=== PATIENT | male | born 1940 | race Caucasian/White ===

== ENCOUNTER → 2018-03-30 17:26 | Outpatient (CLI) | payer MEDICARE, SELFPAY ==
--- NOTE | 2018-03-30 17:35 | CT_ITS ---
STUDY: CT ABDOMEN AND PELVIS WITH CONTRAST REASON FOR EXAM: Male, 77 years old. Hematuria RADIATION DOSAGE (If Supplied By Facility): CTDIvol = ( 18.16 ) mGy, DLP = ( 2191.53 ) mGycm TECHNIQUE: Transaxial images were obtained from the dome of the diaphragm to the symphysis pubis without oral contrast. 100 ml of Isovue 300 contrast was administered. Sagittal and coronal images were reconstructed. Individualized dose optimization techniques were used for this CT. COMPARISON: None. FINDINGS: The visualized lung bases are unremarkable. The visualized portions of the heart are within normal limits. Pneumobilia likely related to cholecystectomy. Normal spleen. Normal pancreas. Normal bilateral adrenal glands. Normal right kidney. Normal left kidney. Normal visualized stomach. 21 mm duodenal diverticulum. There are multiple colonic diverticula consistent with diverticulosis. The appendix is visualized and appears normal. There is diffuse atherosclerotic calcification of the abdominal aorta, without a demonstrated aneurysm. Normal inferior vena cava. Normal retroperitoneum. Bilateral bladder diverticula are present, measuring 3.5 cm on the right and 1.3 cm on the left. The diverticulum on the right contains posterior soft tissue attenuation which extends into the bladder lumen itself. There is also a soft tissue nodule along the right posterior bladder wall on image 89 of series 5 that measures 12 mm. Bladder neoplasm is the diagnosis of exclusion given history of gross hematuria. If not already obtained, cystoscopic correlation is recommended. There is enlargement of the prostate gland. Normal abdominal wall. There are diffuse degenerative changes of the visualized lumbar spine. CT/CT Abd/Pelvis W/WO Contrast IMPRESSION: Abnormal soft tissue attenuation along the posterior margin of a right-sided bladder diverticulum extending into the bladder lumen. Additional 12 mm soft tissue nodule along the right posterior bladder wall. The diagnosis of exclusion is bladder neoplasm and cystoscopic correlation is recommended. Electronically Signed: Michelet Bhandari MD at 22:37 EDT Tel , Service support ,
[2018-03-30 17:46] LABS: CREATININE FINGERSTICK 0.9 mg/dL (0.70-1.30)
== END ==
PROVIDERS: Family Provider Family Medicine; PCP Family Medicine; Visit Provider Nurse Practitioner Adult Health
DX: R31.0 Gross hematuria (principal)
CPT/HCPCS: 74178; Q9967

== ENCOUNTER 2018-06-11 15:47 | Emergency (ER) | payer MEDICARE, SELFPAY ==
[2018-06-11 15:49] VITALS: BP 151/62; PULSE 63; RESP 16; TEMP 36.7; O2SAT 98; BMI 23.7
--- NOTE | 2018-06-11 16:41 | ED.DCSUM_ITS ---
- ER Visit Summary Date of Service: 06/11/18 Chief Complaint: Gross blood in Morris bag History of Present Illness: The patient is a 77 M status post bladder tumor resection yesterday by cystoscopy by Dr. Smith. States he was doing well and today is voiding seen to be draining and and on the way here he was started passing blood-tinged urine. He denies seeing any clots. He denies being on any blood thinners. Physical Examination: Vital signs are stable and afebrile. His initial blood pressure is 151/62. He is in no distress. H EENT exam unremarkable. Neck bilaterally. Heart regular rhythm no murmur. Abdomen soft nontender. External exam eyes penis. With gross tinged urine. Right I do not see any obvious clots. There is blood-tinged urine in Morris bag. He is moving all 4 extremities. Calves nontender without edema or cords. He is awake alert. Test Results: CBC shows white count 9. Hemoglobin 12.5. Unremarkable. No significant anemia or severe loss from prior studies. UA shows blood but no signs of traction. Emergency Department Course and Treatment: RN irrigated the Morris catheter urine cleared up significantly. The catheter is working appropriately. At this time I do not think it needs to be changed. I did discuss that with the patient if he develops urinary retention and clots it will need to be irrigated out again and possibly change to a larger size. Treatment Plan: Discharge home. Plenty of water. Return if worse. Disposition: Discharge Impression: Acute gross hematuria Status post cystoscopy with bladder tumor removal This note was generated with Merkle dictation software. It may contain incorrect words, spelling, and punctuation that were not noted in review of the chart prior to signing ED Disposition - Plan for ED Patient: Chief Complaint: Hypertension Referrals: Franco Shin [Primary Care Provider] -
[2018-06-11 16:49] LABS: Hematocrit 34.7 % (40-54); Hemoglobin 12.5 g/dl (13.0-16.5); Mean Corpuscular Hgb 32.6 pg (27.0-32.0); Mean Corpuscular Volume 90.6 fL (80-94); Mean Platelet Vol. 9.6 fl (6.2-12.0); Platelet Count 169 K/mm3 (150-450); RBC Distribution Width CV 13.3 % (11.6-14.6); RBC Distribution Width SD 43.3 fl (35.1-43.9); Red Blood Count 3.83 M/mm3 (4.6-6.2); White Blood Count 9.2 K/mm3 (4.4-11.0)
[2018-06-11 16:50] LABS: Scan Indicated on CBC? Y/N NO
[2018-06-11 17:03] LABS: Mucous, Urine 0 SEEN /hpf (<or=2+); Squamous Epithelial Cells - UA 0 SEEN /hpf (0-5)
[2018-06-11 17:33] LABS: Color, Urine Yellow (Yellow); Glucose, Dipstick Normal (Normal); Ketone-Dipstick 5 mg/dl (Negative); Leukocyte Esterase-Dipstick 25 /ul (Negative); Nitrite-Dipstick Negative (Negative); Occult Blood-Urine 250 /ul (Negative); Protein-Dipstick 500 mg/dl (Negative); Urine Bilirubin Dipstick Negative (Negative); Urine Clarity Cloudy (Clear); Urine Urobilinogen Normal (Normal)
[2018-06-11 18:02] VITALS: BP 144/69; PULSE 68; RESP 18; O2SAT 97
[2018-06-11 18:09] LABS: Bacteria 1+ /hpf (None Seen); Red Blood Cells-Urine > 100 SEEN /hpf (0-5); White Blood Cells 0-5 SEEN /hpf (0-5)
--- NOTE | 2018-06-11 18:35 | ED.DEP ---
ED Disposition - Plan for ED Patient: Disposition: Home or Assisted Living Chief Complaint: Hypertension Instructions: ED Hematuria Referrals: Franco Shin [Primary Care Provider] - As Needed Juan Pablo Smith MD [STAFF PHYSICIAN] - As soon as possible Additional Instructions: Plenty of water to try to prevent the Morris from being clotted off. Return if catheter is not working. This would need to be re-irrigated. Possibly even changed to a larger size.
[2018-06-11 18:55] VITALS: BP 148/72; PULSE 61; RESP 18; O2SAT 95
== END 2018-06-11 18:56 | disposition home or self-care (01) ==
PROVIDERS: Emergency Provider Emergency Medicine; Family Provider Family Medicine; PCP Family Medicine
DX: R31.0 Gross hematuria (principal); Z98.890 Other specified postprocedural states; I10 Essential (primary) hypertension; E11.9 Type 2 diabetes mellitus without complications; C67.9 Malignant neoplasm of bladder, unspecified; Z79.82 Long term (current) use of aspirin; Z79.84 Long term (current) use of oral hypoglycemic drugs; Z79.899 Other long term (current) drug therapy
CPT/HCPCS: 81001; 85027; 99285; A4216

== ENCOUNTER → 2018-11-03 09:45 | Outpatient (CLI) | payer MEDICARE, SELFPAY ==
--- NOTE | 2018-11-03 09:51 | RDU_ITS ---
Reason For Study: Stenosis Right Renal Artery Left Renal Artery Right renal artery ostium 153/27 Left renal artery ostium 101/24 RSV/EDV. PSV/EDV. Right renal artery proximal 95/23 Left renal artery proximal PSV/EDV PSV/EDV. 96/21 . Right renal artery mid 161/53 Left renal artery mid 83/17 PSV/EDV. PSV/EDV . Right renal artery distal 191/57 Left renal artery distal 178/44 PSV/EDV. PSV/EDV. Right RAR 2.45. Left RAR 2.28. Right Renal Parenchyma Left Renal Parenchyma Upper Pole Medula 45/11 PSV/EDV. Left upper pole medulla 43/9 Right upper pole medulla EDR 0.24 . PSV/EDV . Right upper pole medulla R.I. Left upper pole medulla EDR 0.21 . 0.75 . Left upper pole medulla R.I. 0.80 . Upper Harry Cortx 37/11 PSV/EDV. UP Cortex 20/6 PSV/EDV. Right upper pole cortex EDR 0.30 . Left upper pole cortex EDR 0.30 . Right upper pole cortex R.I. 0.71 . Left upper pole cortex R.I. 0.70 . Right lower Pole medulla 27/9 Left lower Pole medulla 30/7 PSV/EDV . PSV/EDV . Right lower pole medulla EDR 0.33 . Left lower pole medulla EDR 0.23 . Right lower pole medulla R.I. Left lower pole medulla R.I. 0.76 . 0.68 . Lower Pole Cortx 19/4 PSV/EDV. Lower Pole Cortex 25/6 PSV/EDV. Left lower pole cortex EDR 0.21 . Right lower pole cortex EDR 0.24 . Left lower pole cortex R.I. 0.79 . Right lower pole cortex R.I. 0.78 . Left Renal Hilar Right Renal Hilar LT Hilar avg 183/45 PSV/EDV . Right Hilar avg 209/49 PSV/EDV. Left hilar acceleration time 59 Right hilar acceleration time 44 m/sec. m/sec. Left Renal Dimensions Right Renal Dimensions Left kidney size 11.2 cm . Right kidney size 11.6 cm . Left cortical dimension 1.01 cm . Right cortical dimension 0.91 cm . Aorta Proximal abdominal aorta 2.40cm x 2.49 cm . Proximal abdominal aorta peak systolic velocity is 78 cm/sec . Distal abdominal aorta 1.77cm x 1.77 cm . Distal abdominal aorta peak systolic velocity is 84 cm/sec . Interpretation Summary Dimensions of the intra-abdominal aorta appear normal, without evidence of aneurysmal dilatation. Renal artery velocities are normal bilaterally, but for the distal right renal artery velolcity, which is mildly elevated. Acceleration times are normal bilaterally. Renal-aortic ratios are also bilaterally normal. There is no evidence of hemodynamically significant renal artery stenosis on either side. Renovascular resistance appears to be bilaterally elevated . The right cortical dimension is decreased. The left cortical dimension is normal. Kidneys appear normal in size bilaterally. Ordering Physician: Franco Shin Referring Physician: Franco Shin Performed By: Amara Hernandez, MARLEN, RVT
--- NOTE | 2018-11-03 09:52 | ADUL_ITS ---
Reason For Study: Stenosis Right Velocities Ext. Iliac Artery, dist = 122 cm./sec. Common Femoral Artery, mid = 139 cm./sec. Supf Femoral Artery, prox = 215 cm./sec. Supf Femoral Artery, mid = 131 cm./sec. Supf Femoral Artery, dist. = 73.7 cm./sec. Profunda Femoral Artery = 58.9 cm./sec. Popliteal Artery, prox. = 59.2 cm./sec. Popliteal Artery, mid = 55.1 cm./sec. Popliteal Artery, dist = 66.8 cm./sec. Post. Tibial Artery, prox = 102 cm./sec. Post. Tibial Artery, mid = 90.4 cm./sec. Post. Tibial Artery, dist = 73.9 cm./sec. Peroneal Artery, prox = 46 cm./sec. Peroneal Artery, mid = 67.6 cm./sec. Peroneal Artery,dist = 42 cm./sec. Ant. Tibial Artery, prox = 55.4 cm./sec. Ant. Tibial Artery, mid = 69.1 cm./sec. Ant. Tibial Artery, dist = 68 cm./sec. Dorsalis Pedis Artery, = 64 cm/sec. Procedure Exam performed in department. Interpretation Summary Pulsatile arterial flow is noted throughout the right lower extremity arterial tree. Triphasic waveforms are noted at all levels, consistent with relatively normal arterial flow. There is a mild increase in arterial velocity and evidence of mild flow turbulence in the proximal right superficial femoral artery, suggesting mild stenosis, which does not appear to be hemodynamically significant. Ordering Physician: Franco Shin Referring Physician: Franco Shin Performed By: Amara Hernandez RVT, RDCS and Student
== END ==
PROVIDERS: Family Provider Family Medicine; PCP Family Medicine; Referring Provider Family Medicine; Visit Provider Family Medicine
DX: I70.1 Atherosclerosis of renal artery (principal); I73.9 Peripheral vascular disease, unspecified; I70.201 Unspecified atherosclerosis of native arteries of extremities, right leg
CPT/HCPCS: 93926; 93975

== ENCOUNTER 2019-09-30 16:28 | Inpatient (IN) | payer MEDICARE, SELFPAY ==
[2019-09-30 16:36] VITALS: BP 152/65; PULSE 87; RESP 20; TEMP 36.6; O2SAT 96; BMI 23.1
--- NOTE | 2019-09-30 16:37 | NURSING ---
PT ARRIVED BY WHEEL CHAIR, TRANSPORTED PT HERE FROM [facility] AT [id number].
[2019-09-30 17:01] LABS: Bedside Glucose 151 mg/dL (70-110)
[2019-09-30 17:13] VITALS: BP 152/65; PULSE 87; RESP 20; TEMP 36.6; O2SAT 96
--- NOTE | 2019-09-30 17:44 | NURSING ---
After patient was admitted to the unit, the admission nurse noted that the dressing around the patient's JOHNNY drain was saturated. On further investigation drainage was seeping out around the tube insertion site. Furthermore, the site was red with some edema present. This nurse contacted CAROL Smith at [facility] and was told that the Urologist was already aware of this and that no changes had been made, other than nursing completing frequent dressing changes to the site.
--- NOTE | 2019-09-30 18:00 | HP.PCM_ITS ---
Problem List (1) Debility Status: Acute (2) Bladder cancer Status: Chronic (3) Bile duct injury Status: Chronic (4) Diabetes mellitus Status: Chronic (5) Hypertension Status: Chronic (6) Gross hematuria Status: Chronic (7) GERD (gastroesophageal reflux disease) Status: Chronic (8) Chronic kidney disease Status: Chronic (9) Postoperative anemia Status: Acute History of Present Illness Date of Admission: 09/30/19 Chief Complaint: Here for rehabilitation, strengthening, prior to discharge home with . The patient is a 79 year old Male with below past medical history know history of bladder cancer for 1.5 years. Transurethral resection of bladder tumor (TURBT) x 3, with BCG, Mitomycin treatments. Frequency, urgency, nocturia every 1 to 1.5 hours. Occasional back pain. Either TURBT every 3 - 4 months, or bladder removal with ileo conduit. 09/26/2019 Admit to [facility]. 09/29/2019 Ileo conduit, robotic laparoscopic cystectomy, prostatectomy, colostomy. JOHNNY drains in left lower quadrant. 09/30/2019 Admit to TCU with debility, here for rehabilitation, strengthening, prior to discharge home with . Past Medical History Past Medical History (Chronic Problems): Chronic Problems Bladder cancer (Chronic) Bile duct injury (Chronic) Diabetes mellitus (Chronic) Hypertension (Chronic) Gross hematuria (Chronic) GERD (gastroesophageal reflux disease) (Chronic) Chronic kidney disease (Chronic) Allergies No Known Allergies Allergy (Verified 06/11/18 18:45) Home Medications: Ambulatory Orders Medication Instructions Recorded Aspirin [Aspirin, Baby] 81 mg PO DAILY@0800 06/11/18 Metoprolol Succinate [Toprol Xl] 25 mg PO DAILY 06/11/18 Omeprazole 40 mg PO DAILY 06/11/18 Tamsulosin HCl [Flomax] 0.4 mg PO DAILY 06/11/18 metFORMIN HCl [Glucophage] 500 mg PO BIDCM 06/11/18 Acetaminophen [Tylenol Arthritis] 650 mg PO Q8H PRN PRN 09/30/19 Amlodipine [Norvasc] 10 mg PO DAILY 09/30/19 Cyanocobalamin (Vitamin B-12) 1,000 mcg PO DAILY 09/30/19 [Vitamin B-12] Heparin Injection 5,000 units SUBCUT Q8 09/30/19 Oxybutynin Chloride [Oxybutynin 15 mg PO DINNER 09/30/19 Chloride ER] Oxycodone HCl/Acetaminophen 1 ea PO Q4H PRN PRN 09/30/19 [Oxycodone-Acetaminophen 5-325] Rosuvastatin Calcium 5 mg PO DAILY 09/30/19 Sulfasalazine [Azulfidine] 500 mg PO BID 09/30/19 Vitamin B12 1,000 mcg PO DAILY 09/30/19 Surgical History: cataract, cholecystectomy - bile duct injury., - - TURBT x 3, Exploratory laparotomy, hepatojejunostomy with wound vac, liver resection, DCS: A-10C [place] Psychiatric History: No pertinent psych hx Lives: Spouse/ Significant Other Smoking Status: Former smoker Tobacco Use: Cigarettes Alcohol: None Drugs: None - *Family History Maternal History Items: Diabetes, Dementia Sibling History Items: COPD - Brother. Review of Systems Constitutional: Denies: Chills, Fever, Weight Change HEENT: Denies: Head Aches, Sinus Congestion, Sinus Drainage Cardiovascular: Denies: Chest Pain, Palpitations Respiratory: Denies: Cough, Shortness of breath at rest, Sputum production Gastrointestinal: Reports: Nausea. Denies: Abdominal Pain, Vomiting Genitourinary: Denies: Dysuria Musculoskeletal: Denies: Joint Pain, Joint Tenderness Skin: Denies: Rash, Wounds Neurological: Denies: Numbness, Tingling, Focal weakness Psychiatric: Denies: Anxiety, Depression, Homicidal Ideations, Suicidal Ideations Hematologic/ Lymphatic: Denies: Easy Bruising, Easy Bleeding VTE Information - Inpt Only VTE Present on Admission: No VTE Mechan Device Prophylaxis: Knee High JAYLEN Hose VTE Pharm Prophylaxis ordered?: Yes Patient Problems: Active and Suspected Problems Debility (Acute) Postoperative anemia (Acute) - Physical Exam Vitals/I&O's: Vital Signs Temp Pulse Resp BP Pulse Ox 97.8 F 87 20 H 152/65 H 96 09/30/19 17:13 09/30/19 17:13 09/30/19 17:13 09/30/19 17:13 09/30/19 17:13 Oxygen Delivery Method Room Air Weight: 75 kg Body Mass Index (BMI) 23.1 Intake and Output for Last 24 Hours 09/28/19 09/29/19 09/30/19 23:59 23:59 23:59 Output Total Balance -25 / -25 General: Alert, Oriented x3, Cooperative HEENT: Atraumatic, PERRLA, EOMI, Normocephalic Neck: Supple, No JVD, Negative Carotid Bruits Lungs: Clear to auscultation, Normal air movement Cardiovascular: Regular rate, No murmurs Abdomen: Bowel Sounds Present, Soft, Non Tender, - - Incisions, judy, clean, dry, intact. Ileoconduit, colostomy present. Extremities: No edema, Capillary Refill Less than 3 Seconds Skin: No rashes, No breakdown Musculoskeletal: No Tenderness to Palpation of Joints or Extremities Neurological: Cranial nerves II-XII grossly intact Psych/Mental Status: Normal Affect, Appropriate Laboratory Results 09/30/19 16:52: POC Glucose 151 H Current Medications Amlodipine Besylate (Norvasc) 10 mg PO DAILY [facility] Aspirin (Aspirin, Baby) 81 mg PO DAILY@0800 [facility]) [facility] Metoprolol Succinate (Toprol Xl (Beta Lee)) 25 mg PO DAILY [facility] Non-Formulary Medication (Oxycodone Hcl/Acetaminophen [Oxycodone-Acetaminophen 5-325]) 1 ea PO Q4H PRN PRN PRN Reason: Pain or Fever Stop: 10/06/19 23:59 Non-Formulary Medication (Rosuvastatin Calcium) 5 mg PO DAILY [facility] Non-Formulary Medication (Vitamin B12) 1,000 mcg PO DAILY [facility] Non-Formulary Medication (Acetaminophen) 650 mg PO Q8H PRN PRN PRN Reason: Pain or Fever Non-Formulary Medication (Cyanocobalamin (Vitamin B-12) [Vitamin B-12]) 1,000 mcg PO DAILY [facility] Non-Formulary Medication (Heparin Injection) 5,000 units subcut Q8 [facility] Non-Formulary Medication (Omeprazole) 40 mg PO DAILY [facility] Non-Formulary Medication (Oxybutynin Chloride [Oxybutynin Chloride Er]) 15 mg PO DINNER [facility] Sulfasalazine (Azulfidine) 500 mg PO BID [facility] Tamsulosin HCl (Flomax) 0.4 mg PO DAILY [facility] Tuberculin PPD (Tubersol, Aplisol, Ppd) 5 tu ID X1 ONE Stop: 10/01/19 10:01 Tuberculin PPD (Tubersol, Aplisol, Ppd) 5 tu ID X1 ONE Stop: 10/08/19 10:01 Assessment/Plan All Active Problems Debility (Acute) Postoperative anemia (Acute) 79 year old male with below past medical history significant for bladder cancer, hospitalized for ileo conduit, robotic laparoscopic cystectomy, prostatectomy, colostomy 09/29/2019, admitted to TCU with debility, here for rehabilitation, strengthening, prior to discharge home with . * Debility - PT/OT. * Pain - Tylenol 1000MG Q6H PRN pain (1-5), Oxycodone 5MG Q4H PRN pain (6-10). * Bowel - Miralax 17GM daily, Senna/colace 1 tablet BID, Dulcolax 10MG daily PRN. * Adult immunization - Administer Prevnar 13, Pneumovax 23, Fluzone as necessary. * DVT prophylaxis - Lovenox 40MG SC daily. * Hypertension - Metoprolol succinate 25MG daily, Amlodipine 10MG daily. * CV prophylaxis - Aspirin 81MG daily. * Vitamin B12 deficiency - B12 1000MCG daily. * Diabetes Mellitus II - Metformin 500MG BID, monitor blood sugars. * GERD - Pantoprazole 40MG daily. * Overactive bladder - Oxybutynin ER 15MG daily. * Hyperlipidemia - Atorvastatin 20MG daily. * BPH - No longer has prostate, stop Tamsulosin. * Colitis - Sulfasalazine 500MG BID. * Thrush - Nystatin 500,000 4x/day x 10 days. * Nausea -Zofran 8MG Q6H, order KUB. * Insomnia - Melatonin 10MG QHS PRN insomnia.
[2019-09-30] MEDS: sulfaSALAzine 500 MG Tablet PO (20:53)
[2019-09-30] MEDS: Oxybutynin 5 MG Tablet PO (20:54)
[2019-09-30] MEDS: Atorvastatin Calcium 20 MG Tablet PO (20:54)
[2019-09-30] MEDS: oxyCODONE 5 MG Tablet PO (20:54)
[2019-09-30] MEDS: NYSTATIN 500,000 UNIT/5 ML UDC 500000 UNIT PO (20:54)
[2019-09-30 22:06] LABS: Bedside Glucose 188 mg/dL (70-110)
[2019-09-30] MEDS: Acetaminophen 500 MG Tablet 1000 MG PO (23:54)
[2019-10-01 00:16] VITALS: RESP 18
[2019-10-01] MEDS: sulfaSALAzine 500 MG Tablet PO ×2 (06:21→16:48)
[2019-10-01] MEDS: amLODIPine 10 MG Tablet PO (06:21)
[2019-10-01] MEDS: Oxybutynin 5 MG Tablet PO ×3 (06:21→21:36)
[2019-10-01 06:22] VITALS: BP 136/72; PULSE 65
[2019-10-01] MEDS: Pantoprazole Sodium 40 MG Tablet PO (06:22)
[2019-10-01] MEDS: NYSTATIN 500,000 UNIT/5 ML UDC 500000 UNIT PO ×3 (06:22→21:41)
[2019-10-01] MEDS: Metoprolol(XL)Succ 25 MG Tablet PO (06:22)
[2019-10-01] MEDS: Senna/Docusate Sodium 1 Tablet PO ×2 (06:22→16:48)
[2019-10-01] MEDS: Acetaminophen 500 MG Tablet 1000 MG PO ×2 (06:23→16:48)
[2019-10-01] MEDS: Cyanocobalamin 500 MCG Tablet 1000 MCG PO (06:23)
[2019-10-01 06:40] LABS: Bedside Glucose 134 mg/dL (70-110)
[2019-10-01 08:05] LABS: Absolute Lymphocyte Count 0.86 X10^3/uL (0.83-4.51); Absolute Neutrophil Count 5.1 X10^3/uL (2.0-7.7); Basophil# 0.02 X10^3/uL; Basophil% 0.3 % (0-1); Eosinophil# 0.32 X10^3/uL; Eosinophils% 4.4 % (0-5); Hematocrit 23.5 % (40-54); Hemoglobin 8.1 g/dL (13.0-16.5); Lymphocyte # 0.86 X10^3/ul (4.0); Lymphocyte % 11.9 % (19-41); Mean Corp Hgb Conc 34.5 g/dL (32-36); Mean Corpuscular Hgb 31.6 pg (27.0-32.0); Mean Corpuscular Volume 91.8 fL (80-94); Mean Platelet Vol. 9.3 fl (6.2-12.0); Monocyte# 0.84 X10^3/uL; Monocyte% 11.7 % (0-10); NRBC Flagged by Analyzer 0 % (0-5); Neutrophil # 5.06 X10^3/uL (2.7-7.7); Neutrophil % 70.3 % (47-70); Platelet Count 245 K/mm3 (150-450); RBC Distribution Width CV 13.6 % (11.6-14.6); RBC Distribution Width SD 45.6 fl (35.1-43.9); Red Blood Count 2.56 M/mm3 (4.6-6.2); White Blood Count 7.2 K/mm3 (4.4-11.0)
[2019-10-01 08:23] LABS: Anion Gap 6 (5-15); BUN 25 mg/dL (7-18); Calcium,Total 7.8 mg/dL (8.5-10.1); Chloride 106 mmol/L (98-107); Creatinine, Serum 1.56 mg/dL (0.70-1.30); EST Glomerular Filtration Rate 46 mL/min (>60); Est Glom Filt Rate - Afr Amer 56 mL/min (>60); Estimated Creatinine Clearance 42.07 ml/min; Glucose 139 mg/dL (74-106); Potassium 3.9 mmol/L (3.5-5.1); Sodium Level 136 mmol/L (136-145)
[2019-10-01] MEDS: metFORMIN HCl 500 MG Tablet PO ×2 (08:27→16:48)
[2019-10-01] MEDS: Aspirin 81 MG TAB.CHEW PO (08:27)
[2019-10-01] MEDS: Enoxaparin 40 MG/0.4 ML Syringe SC (08:28)
[2019-10-01] MEDS: Tuberculin,Purif.prot.deriv. 50 TU/ML Vial 5 ML ID (09:17)
[2019-10-01 16:00] VITALS: BP 151/63; PULSE 89; RESP 18; TEMP 37.3; O2SAT 96
[2019-10-01] MEDS: traMADol 50 MG Tablet PO (18:50)
[2019-10-01] MEDS: Atorvastatin Calcium 20 MG Tablet PO (21:40)
[2019-10-01] MEDS: oxyCODONE 5 MG Tablet 10 MG PO (21:44)
[2019-10-02] MEDS: Acetaminophen 500 MG Tablet 1000 MG PO ×2 (01:36→12:40)
[2019-10-02] MEDS: sulfaSALAzine 500 MG Tablet PO ×2 (05:38→18:02)
[2019-10-02] MEDS: Senna/Docusate Sodium 1 Tablet PO (05:38)
[2019-10-02] MEDS: Cyanocobalamin 500 MCG Tablet 1000 MCG PO (05:38)
[2019-10-02] MEDS: Oxybutynin 5 MG Tablet PO ×3 (05:38→19:52)
[2019-10-02] MEDS: amLODIPine 10 MG Tablet PO (05:38)
[2019-10-02] MEDS: NYSTATIN 500,000 UNIT/5 ML UDC 500000 UNIT PO ×4 (05:38→19:49)
[2019-10-02] MEDS: Pantoprazole Sodium 40 MG Tablet PO (05:38)
[2019-10-02 05:42] VITALS: BP 135/66; PULSE 107
[2019-10-02] MEDS: Metoprolol(XL)Succ 25 MG Tablet PO (05:42)
[2019-10-02 06:45] LABS: Bedside Glucose 131 mg/dL (70-110)
[2019-10-02] MEDS: metFORMIN HCl 500 MG Tablet PO ×2 (08:19→18:02)
[2019-10-02] MEDS: Aspirin 81 MG TAB.CHEW PO (08:19)
--- NOTE | 2019-10-02 09:15 | NURSING ---
Pt transferred to bed. Tolerated well. LLQ JOHNNY drain dressing changed with moderate amount of drainage to the dressing. JOHNNY drain emptied with 30 mL of clear yellow fluid. Morris cath emptied with 300 mL of clear yellow urine.
[2019-10-02] MEDS: Ondansetron ODT 4 MG Tablet PO ×2 (12:40→20:00)
[2019-10-02 15:43] VITALS: BP 131/57; PULSE 70; RESP 20; TEMP 36.7; O2SAT 98
[2019-10-02] MEDS: oxyCODONE 5 MG Tablet 10 MG PO (19:50)
[2019-10-02] MEDS: Atorvastatin Calcium 20 MG Tablet PO (19:52)
[2019-10-02 21:50] VITALS: RESP 18
[2019-10-03] MEDS: Acetaminophen 500 MG Tablet 1000 MG PO ×2 (02:12→18:21)
[2019-10-03] MEDS: Ondansetron ODT 4 MG Tablet PO (02:12)
[2019-10-03 05:44] LABS: Hematocrit 23.7 % (40-54); Hemoglobin 8.2 g/dL (13.0-16.5)
[2019-10-03] MEDS: amLODIPine 10 MG Tablet PO (06:17)
[2019-10-03] MEDS: Cyanocobalamin 500 MCG Tablet 1000 MCG PO (06:18)
[2019-10-03] MEDS: sulfaSALAzine 500 MG Tablet PO ×2 (06:18→17:48)
[2019-10-03] MEDS: Oxybutynin 5 MG Tablet PO ×3 (06:20→20:35)
[2019-10-03] MEDS: Pantoprazole Sodium 40 MG Tablet PO (06:20)
[2019-10-03] MEDS: Senna/Docusate Sodium 1 Tablet PO (06:21)
[2019-10-03 06:24] VITALS: BP 113/72; PULSE 107
[2019-10-03] MEDS: Metoprolol(XL)Succ 25 MG Tablet PO (06:24)
[2019-10-03] MEDS: oxyCODONE 5 MG Tablet 10 MG PO (06:35)
--- NOTE | 2019-10-03 06:39 | NURSING ---
Pt continues to c/o of LUQ pain from colostomy bag area radiating to back, 10mg Oxy given alternating with Tylenol / pain Pt also c/o dry mouth (pain) pt sipping on water, jack jermaine, lozenges mouth swabs without relief, Zofran was given X2 throughout the night with little relief, pt seems to be nauseous at time, restless and requesting something for sleep, request will be made aware with Dr Aaron
[2019-10-03 06:40] LABS: Bedside Glucose 115 mg/dL (70-110)
[2019-10-03] MEDS: metFORMIN HCl 500 MG Tablet PO ×2 (08:49→17:48)
[2019-10-03] MEDS: Aspirin 81 MG TAB.CHEW PO (08:49)
--- NOTE | 2019-10-03 11:33 | RAD_ITS ---
STUDY: X-RAY - ABDOMEN/PELVIS REASON FOR EXAM: Male, 79 years old. NAUSEA, bladder ca. TECHNIQUE: Single, supine frontal projections encompassing the abdomen/pelvis. COMPARISON: CT of the abdomen and pelvis dated March 30, 2018 demonstrating potential urinary bladder neoplasm and recommendation for direct visualization. FINDINGS: Normal visualized lung bases. The patient is status post ventral median abdominal surgery with a visible skin staple line. Surgical clips are also seen in the right upper quadrant potentially representing prior cholecystectomy. A surgical drain is seen within the left upper quadrant. There are multiple mildly air dilated loops of small bowel. The largest degree of distention is identified in the right lower quadrant measuring luminal dimension of 3.8 cm. Air is identified within the sigmoid colon and rectum. There is no gross free air on these supine views. There is no plain film evident intra-abdominal mass or mass effect. Diffuse degenerative changes seen throughout the spine. RAD/Abdomen Single View IMPRESSION: Findings most consistent with postoperative ileus. No gross free air on these supine views. Electronically Signed: Elmer Hernandez MD at 14:09 EST , Service support ,
[2019-10-03] MEDS: Glucerna Shake 120 ML LIQUID PO ×3 (12:05→20:34)
--- NOTE | 2019-10-03 14:13 | CASEMGMT ---
See assessment for further details. Pt's goal from here is to return home, open to home health if needed. Pt may be interested in completing LW/POA forms at some point during admission. HONORIO Pineda
--- NOTE | 2019-10-03 14:30 | NURSING ---
In to change the colostomy appliance and the ileal conduit appliance with patient and . The ileal conduit appliance removed. there are 2 stents present that are sutured in place. there is a large amount of mucous noted. peristomal skin is intact. stoma measures approx 1 1/4 and is oval in shape. sits right at skin level and is beefy red. peristomal skin is intact. observed cutting appliance to the size of the stoma, removed backing, and gently place a 1 piece flat Ogema appliance around stoma making sure that the stents were gently places in the appliance as well. pt will most likely need a convex appliance in the future. changed gloves and removed the colostomy appliance. there was a small amount of liquid brown stool noted in the appliance. stoma is retracted with some necrosis noted as well. states the stoma was sitting at skin level and was pink in color prior to discharge from hospital. there is a very small amount of pink color noted. pt stated they were having issues with leaks prior to discharge from the hospital as well. pt states he does not have a follow up scheduled at this time. will talk to nursing and see if they can get a follow up scheduled this week or early next week. will monitor the stoma. cleansed the peristomal skin with warm water. pat dry. peristomal skin is intact at this time. applied a 2 piece flat Ogema appliance with an [employer] ring. instructed patient and how to empty the appliance. will have nursing continue education with them as well. both deny questions at this time. will plan to change appliances again with later in the week.
--- NOTE | 2019-10-03 15:00 | NURSING ---
CAROL Mercedes had called the surgeon's office and got an appt for the patient on October 11. will monitor the stoma.
[2019-10-03 15:31] VITALS: BP 136/56; PULSE 86; RESP 20; TEMP 36.8; O2SAT 96
--- NOTE | 2019-10-03 17:53 | NURSING ---
Entered room to administer Tylenol per pt request, found pt vomiting into trash can. Will hold Tylenol for now. Provided emily. at patient's side.
[2019-10-03] MEDS: Ondansetron ODT 4 MG Tablet 8 MG PO (18:21)
[2019-10-03 20:06] VITALS: PULSE 82; O2SAT 94
[2019-10-03] MEDS: Metoclopramide 10 MG Tablet PO (20:35)
[2019-10-03] MEDS: Atorvastatin Calcium 20 MG Tablet PO (20:35)
[2019-10-04] MEDS: oxyCODONE 5 MG Tablet 10 MG PO ×2 (01:51→06:17)
[2019-10-04] MEDS: Metoclopramide 10 MG Tablet PO ×4 (06:18→21:56)
[2019-10-04] MEDS: Pantoprazole Sodium 40 MG Tablet PO (06:19)
[2019-10-04] MEDS: Cyanocobalamin 500 MCG Tablet 1000 MCG PO (06:19)
[2019-10-04] MEDS: Oxybutynin 5 MG Tablet PO (06:19)
[2019-10-04 06:20] LABS: Bedside Glucose 108 mg/dL (70-110)
[2019-10-04 06:22] VITALS: BP 131/65; PULSE 92
[2019-10-04] MEDS: Metoprolol(XL)Succ 25 MG Tablet PO (06:22)
[2019-10-04] MEDS: Glucerna Shake 120 ML LIQUID PO ×4 (06:22→21:55)
[2019-10-04] MEDS: amLODIPine 10 MG Tablet PO (06:23)
[2019-10-04] MEDS: Ondansetron ODT 4 MG Tablet 8 MG PO ×2 (06:47→16:29)
[2019-10-04] MEDS: metFORMIN HCl 500 MG Tablet PO ×2 (08:16→16:30)
[2019-10-04] MEDS: Aspirin 81 MG TAB.CHEW PO (08:16)
[2019-10-04 08:44] VITALS: PULSE 113; RESP 14
--- NOTE | 2019-10-04 09:42 | PCM.PN.RX ---
<Jacque Toribio - Last Filed: 10/04/19 09:42> Progress Note - Pharmacy Subjective: TCU Admission Objective: Allergies No Known Allergies Allergy (Verified 06/11/18 18:45) Current Medications Generic Name Dose Route Start Last Admin Trade Name Freq PRN Reason Stop Dose Admin Acetaminophen 1,000 mg 09/30/19 18:16 10/03/19 18:21 Tylenol PO 1,000 mg Q6H PRN Administration Pain Score 1-3/10 Amlodipine Besylate 10 mg 10/01/19 06:00 10/04/19 06:23 Norvasc PO 10 mg DAILY ONOFRE Administration Aspirin 81 mg 10/01/19 08:00 10/04/19 08:16 Aspirin, Baby PO 81 mg DAILY@0800 ONOFRE Administration Atorvastatin Calcium 20 mg 09/30/19 22:00 10/03/19 20:35 Lipitor PO 20 mg QHS ONOFRE Administration Bisacodyl 10 mg 09/30/19 18:20 Dulcolax PO DAILY PRN Constipation Cyanocobalamin 1,000 mcg 10/01/19 06:00 10/04/19 06:19 Vitamin B12 PO 1,000 mcg DAILY ONOFRE Administration Melatonin 10 mg 10/03/19 08:34 Melatonin PO QHS PRN INSOMNIA Metformin HCl 500 mg 10/01/19 08:00 10/04/19 08:16 Glucophage PO 500 mg BIDCM ONOFRE Administration Metoclopramide HCl 10 mg 10/03/19 22:00 10/04/19 06:18 Reglan PO 10/08/19 22:01 10 mg ACHS ONOFRE Administration Metoprolol Succinate 25 mg 10/01/19 06:00 10/04/19 06:22 Toprol Xl (Beta Lee) PO 25 mg DAILY ONOFRE Administration Nutritional Formula (Lactose Free) 120 ml 10/03/19 12:00 10/04/19 06:22 Glucerna Shake PO 120 ml 4X/DAY ONOFRE Administration Ondansetron HCl 8 mg 10/03/19 08:34 10/04/19 06:47 Zofran Odt PO 8 mg Q6H PRN PRN Administration NAUSEA/VOMITING Oxycodone HCl 10 mg 10/01/19 10:50 10/04/19 06:17 Oxyir PO 10 mg Q4H PRN PRN Administration Pain Score 6-10/10 Pantoprazole Sodium 40 mg 10/01/19 06:00 10/04/19 06:19 Protonix PO 40 mg DAILY ONOFRE Administration Polyethylene Glycol 17 gm 10/01/19 06:00 10/04/19 06:23 Miralax PO Not Given DAILY ONOFRE Tramadol HCl 50 mg 10/01/19 10:50 10/01/19 18:50 Ultram PO 50 mg Q6H PRN PRN Administration Pain Score 4-5/10 Tuberculin PPD 5 tu 10/08/19 10:00 Tubersol, Aplisol, Ppd ID 10/08/19 10:01 X1 ONE Problem List Debility (Acute) Bladder cancer (Chronic) Bile duct injury (Chronic) Diabetes mellitus (Chronic) Hypertension (Chronic) Gross hematuria (Chronic) GERD (gastroesophageal reflux disease) (Chronic) Chronic kidney disease (Chronic) Postoperative anemia (Acute) Vital Signs Temp Pulse Resp BP Pulse Ox 98.3 F 113 H 14 131/65 H 94 10/03/19 15:31 10/04/19 08:44 10/04/19 08:44 10/04/19 06:22 10/03/19 20:06 Oxygen Flow Rate (L/min) 94 Oxygen Delivery Method Room Air Weight: 75 kg Body Mass Index (BMI) 23.1 Sodium 136 mmol/L (136-145) 10/01/19 07:30 Potassium 3.9 mmol/L (3.5-5.1) 10/01/19 07:30 Chloride 106 mmol/L (98-107) 10/01/19 07:30 Carbon Dioxide 24.0 mmol/L (21.0-32.0) 10/01/19 07:30 Anion Gap 6 (5-15) 10/01/19 07:30 BUN 25 mg/dL (7-18) H 10/01/19 07:30 Creatinine 1.56 mg/dL (0.70-1.30) H 10/01/19 07:30 Est GFR (MDRD) Af Amer 56 mL/min (>60) L 10/01/19 07:30 Est GFR (MDRD) Non-Af 46 mL/min (>60) L 10/01/19 07:30 BUN/Creatinine Ratio 16.0 RATIO (10-20) 10/01/19 07:30 Glucose 139 mg/dL (74-106) H 10/01/19 07:30 Assessment/Plan: 1. Pain: acetaminophen 1000mg PO Q6H PRN pain (1-3/10), tramadol 50mg PO Q6H PRn pain (4-5/10), and oxycodone 10mg PO Q4H PRN pain (6-10/10). Please continue to monitor for increased pain, constipation, and PRN usage. 2. Hypertension/CV prophylaxis: metoprolol succinate 25mg PO daily, amlodipine 10mg PO daily, and aspirin 81mg PO daily. Please continue to monitor BP, HR, edema and S/S of bleeding. *3. Type II diabetes mellitus: metformin 500mg PO BIDCM. Please continue to monitor renal function and POC glucose. I did not see a A1c in the patient's chart. Please consider ordering one now and then annually as clinically appropriate. 4. GERD: pantoprazole 40mg PO daily. Please continue to monitor for S/S of GERD. *5. Hyperlipidemia: atorvastatin 20mg PO QHS. I did not see a lipid panel in the patient's chart. Please consider ordering one now and then annually as clinically appropriate. LFTs SNL and appropriate for continued use. Please continue to monitor for muscle pain. *6. Vitamin B12 deficiency: cyanocobalamin 1000mcg PO daily. Please consider ordering a Vitamin B level now and then annually as clinically appropriate. 7. Nausea: ondansetron 8mg PO Q6H PRN nausea/vomiting. Please continue to monitor for nausea/vomiting and PRN usage. 8. Insomnia: melatonin 10mg PO QHS PRN insomnia. Please continue to monitor for insomnia and PRN usage. Psychotropic Medications: None *Unnecessary Medications: metoclopramide 10mg PO ACHS. I did not see a documented indication for this medication. Please consider D/C if clinically appropriate. *Bowel Regimen: Miralax 17gm PO daily and bisacodyl 10mg PO daily PRN constipation. Patient has been refusing Miralax doses. Please consider changing to PRN constipation. Date of Note:: 10/04/19 - Provider Comments Provider responsibility: Provider responsible to enter orders to implement recommendations <Dm Aaron Chi - Last Filed: 10/04/19 21:56> Progress Note - Pharmacy Subjective: [] Objective: Allergies No Known Allergies Allergy (Verified 06/11/18 18:45) Current Medications Generic Name Dose Route Start Last Admin Trade Name Freq PRN Reason Stop Dose Admin Acetaminophen 1,000 mg 09/30/19 18:16 10/03/19 18:21 Tylenol PO 1,000 mg Q6H PRN Administration Pain Score 1-3/10 Amlodipine Besylate 10 mg 10/01/19 06:00 10/04/19 06:23 Norvasc PO 10 mg DAILY ONOFRE Administration Aspirin 81 mg 10/01/19 08:00 10/04/19 08:16 Aspirin, Baby PO 81 mg DAILY@0800 ONOFRE Administration Atorvastatin Calcium 20 mg 09/30/19 22:00 10/03/19 20:35 Lipitor PO 20 mg QHS ONOFRE Administration Bisacodyl 10 mg 09/30/19 18:20 Dulcolax PO DAILY PRN Constipation Cyanocobalamin 1,000 mcg 10/01/19 06:00 10/04/19 06:19 Vitamin B12 PO 1,000 mcg DAILY ONOFRE Administration Melatonin 10 mg 10/03/19 08:34 Melatonin PO QHS PRN INSOMNIA Metformin HCl 500 mg 10/01/19 08:00 10/04/19 16:30 Glucophage PO 500 mg BIDCM ONOFRE Administration Metoclopramide HCl 10 mg 10/03/19 22:00 10/04/19 16:29 Reglan PO 10/08/19 22:01 10 mg ACHS ONOFRE Administration Metoprolol Succinate 25 mg 10/01/19 06:00 10/04/19 06:22 Toprol Xl (Beta Lee) PO 25 mg DAILY ONOFRE Administration Nutritional Formula (Lactose Free) 120 ml 10/03/19 12:00 10/04/19 16:30 Glucerna Shake PO 120 ml 4X/DAY ONOFRE Administration Ondansetron HCl 8 mg 10/03/19 08:34 10/04/19 16:29 Zofran Odt PO 8 mg Q6H PRN PRN Administration NAUSEA/VOMITING Oxycodone HCl 10 mg 10/01/19 10:50 10/04/19 06:17 Oxyir PO 10 mg Q4H PRN PRN Administration Pain Score 6-10/10 Pantoprazole Sodium 40 mg 10/01/19 06:00 10/04/19 06:19 Protonix PO 40 mg DAILY ONOFRE Administration Polyethylene Glycol 17 gm 10/01/19 06:00 10/04/19 06:23 Miralax PO Not Given DAILY ONOFRE Tramadol HCl 50 mg 10/01/19 10:50 10/01/19 18:50 Ultram PO 50 mg Q6H PRN PRN Administration Pain Score 4-5/10 Tuberculin PPD 5 tu 10/08/19 10:00 Tubersol, Aplisol, Ppd ID 10/08/19 10:01 X1 ONE Problem List Debility (Acute) Bladder cancer (Chronic) Bile duct injury (Chronic) Diabetes mellitus (Chronic) Hypertension (Chronic) Gross hematuria (Chronic) GERD (gastroesophageal reflux disease) (Chronic) Chronic kidney disease (Chronic) Postoperative anemia (Acute) Vital Signs Temp Pulse Resp BP Pulse Ox 98.7 F 78 20 H 151/66 H 95 10/04/19 16:00 10/04/19 16:00 10/04/19 16:00 10/04/19 16:00 10/04/19 16:00 Oxygen Flow Rate (L/min) 94 Oxygen Delivery Method Room Air Weight: 69.144 kg Body Mass Index (BMI) 23.1 Sodium 136 mmol/L (136-145) 10/01/19 07:30 Potassium 3.9 mmol/L (3.5-5.1) 10/01/19 07:30 Chloride 106 mmol/L (98-107) 10/01/19 07:30 Carbon Dioxide 24.0 mmol/L (21.0-32.0) 10/01/19 07:30 Anion Gap 6 (5-15) 10/01/19 07:30 BUN 25 mg/dL (7-18) H 10/01/19 07:30 Creatinine 1.56 mg/dL (0.70-1.30) H 10/01/19 07:30 Est GFR (MDRD) Af Amer 56 mL/min (>60) L 10/01/19 07:30 Est GFR (MDRD) Non-Af 46 mL/min (>60) L 10/01/19 07:30 BUN/Creatinine Ratio 16.0 RATIO (10-20) 10/01/19 07:30 Glucose 139 mg/dL (74-106) H 10/01/19 07:30 Assessment/Plan: Psychotropic Medications: Unnecessary Medications: Bowel Regimen: - Provider Comments Provider responsibility: Provider responsible to enter orders to implement recommendations Provider Comments to Recommendations by Pharmacy: Agree
--- NOTE | 2019-10-04 13:28 | CASEMGMT ---
Plan of care meeting held today with pt and his Patti present. Pt is progressing well with PT/OT. able to ambulate 300 ft with WW at A. Upper body care at a Setup level and lower body care at SBA. Pt does have a followup appointment with surgeon on 10/07 for colostomy followup. Pt plans to return home with at time of discharge. No d/c date set at this time, will continue with plan of care. SW to follow for support and d/c planning. NNEKA Agrawal
--- NOTE | 2019-10-04 13:54 | NURSING ---
Pt resting in bed with eyes closed. no discomfort noted at this time.
[2019-10-04 16:00] VITALS: BP 151/66; PULSE 78; RESP 20; TEMP 37.1; O2SAT 95
[2019-10-04] MEDS: Atorvastatin Calcium 20 MG Tablet PO (21:56)
[2019-10-04] MEDS: Acetaminophen 500 MG Tablet 1000 MG PO (22:04)
[2019-10-05] MEDS: oxyCODONE 5 MG Tablet 10 MG PO (03:23)
[2019-10-05] MEDS: amLODIPine 10 MG Tablet PO (05:33)
[2019-10-05] MEDS: Pantoprazole Sodium 40 MG Tablet PO (05:33)
[2019-10-05] MEDS: Cyanocobalamin 500 MCG Tablet 1000 MCG PO (05:33)
[2019-10-05 05:34] VITALS: PULSE 90
[2019-10-05] MEDS: Metoprolol(XL)Succ 25 MG Tablet PO (05:34)
[2019-10-05] MEDS: Polyethylene Glycol 3350 17 GM PACKET PO (05:34)
[2019-10-05] MEDS: Metoclopramide 10 MG Tablet PO ×4 (05:34→20:32)
[2019-10-05 06:25] LABS: Bedside Glucose 141 mg/dL (70-110)
--- NOTE | 2019-10-05 09:00 | NURSING ---
Per previous shift, pt will not take melatonin. Dr. Aaron aware, and new order for doxepin qhs. Pt was updated.
[2019-10-05] MEDS: Aspirin 81 MG TAB.CHEW PO (09:15)
[2019-10-05] MEDS: metFORMIN HCl 500 MG Tablet PO ×2 (09:15→16:49)
[2019-10-05] MEDS: Acetaminophen 500 MG Tablet 1000 MG PO ×2 (14:21→20:36)
[2019-10-05 15:49] VITALS: BP 118/54; PULSE 69; RESP 18; TEMP 37.1; O2SAT 96
[2019-10-05] MEDS: Glucerna Shake 120 ML LIQUID PO ×2 (16:48→20:32)
[2019-10-05 20:09] VITALS: PULSE 74; O2SAT 97
[2019-10-05] MEDS: Doxepin Hcl 25 MG Capsule PO (20:32)
[2019-10-05] MEDS: Atorvastatin Calcium 20 MG Tablet PO (20:32)
[2019-10-06] MEDS: oxyCODONE 5 MG Tablet 10 MG PO ×2 (02:05→15:35)
[2019-10-06 06:00] VITALS: BP 128/59; PULSE 84
[2019-10-06] MEDS: Metoprolol(XL)Succ 25 MG Tablet PO (06:00)
[2019-10-06] MEDS: Metoclopramide 10 MG Tablet PO ×4 (06:00→20:43)
[2019-10-06] MEDS: Cyanocobalamin 500 MCG Tablet 1000 MCG PO (06:00)
[2019-10-06] MEDS: amLODIPine 10 MG Tablet PO (06:00)
[2019-10-06] MEDS: Pantoprazole Sodium 40 MG Tablet PO (06:00)
[2019-10-06] MEDS: Polyethylene Glycol 3350 17 GM PACKET PO (06:04)
[2019-10-06] MEDS: Glucerna Shake 120 ML LIQUID PO ×4 (06:07→20:43)
[2019-10-06 06:20] LABS: Bedside Glucose 125 mg/dL (70-110)
[2019-10-06] MEDS: Aspirin 81 MG TAB.CHEW PO (08:00)
[2019-10-06] MEDS: metFORMIN HCl 500 MG Tablet PO ×2 (08:00→16:53)
[2019-10-06 10:25] VITALS: PULSE 81; RESP 18; O2SAT 96
--- NOTE | 2019-10-06 13:45 | MDS.RN ---
Pain interview for joel 10/07/2019 completed.
--- NOTE | 2019-10-06 15:09 | NURSING ---
Ostomy appliances are intact. no sign of leak noted. was planning on more teaching with patient and tomorrow, but patient has a follow appt with his surgeon tomorrow morning and they will remove the appliance to assess the stoma at that time. Discussed also with patient's . pt states he has been feeling better.
[2019-10-06 15:21] VITALS: BP 138/61; PULSE 74; RESP 18; TEMP 37.4; O2SAT 97
[2019-10-06] MEDS: Acetaminophen 500 MG Tablet 1000 MG PO (15:38)
[2019-10-06] MEDS: Atorvastatin Calcium 20 MG Tablet PO (20:43)
[2019-10-06] MEDS: Doxepin Hcl 25 MG Capsule PO (20:43)
[2019-10-07] MEDS: oxyCODONE 5 MG Tablet 10 MG PO ×2 (01:18→22:17)
[2019-10-07 05:40] VITALS: BP 128/60; PULSE 77
[2019-10-07] MEDS: amLODIPine 10 MG Tablet PO (05:40)
[2019-10-07] MEDS: Metoprolol(XL)Succ 25 MG Tablet PO (05:40)
[2019-10-07] MEDS: Glucerna Shake 120 ML LIQUID PO ×3 (05:40→20:12)
[2019-10-07] MEDS: Cyanocobalamin 500 MCG Tablet 1000 MCG PO (05:40)
[2019-10-07] MEDS: Pantoprazole Sodium 40 MG Tablet PO (05:41)
[2019-10-07] MEDS: Polyethylene Glycol 3350 17 GM PACKET PO (05:41)
[2019-10-07] MEDS: Metoclopramide 10 MG Tablet PO ×3 (05:41→20:13)
[2019-10-07 06:36] LABS: Bedside Glucose 141 mg/dL (70-110)
[2019-10-07] MEDS: metFORMIN HCl 500 MG Tablet PO ×2 (08:24→17:12)
[2019-10-07] MEDS: Aspirin 81 MG TAB.CHEW PO (08:26)
--- NOTE | 2019-10-07 09:30 | NURSING ---
pt off unit to appt via WC
--- NOTE | 2019-10-07 13:23 | NURSING ---
pt arrived back from [facility], no new orders. anus sutures removed at [facility] per pt.
--- NOTE | 2019-10-07 15:28 | NURSING ---
Pt had gone to follow up appt with colon surgeon today. Per pt, the surgeon plans to place more sutures to keep stoma at skin level. stoma appears slightly pinker now but is even more retracted today. there was a small amount of liquid lowery stool noted in the appliance. pt stated the appliance was not changed. present at bedside so both the colostomy and the urostomy appliances were changed with pt and . peristomal skin is intact. pt tolerated well. questions answered. states that supplies are already set up with [facility] and they just need to be notifies when the patient is discharged home. would still recommend home health at home to assist in further teaching with the patient and .
[2019-10-07 15:29] VITALS: BP 141/60; PULSE 81; RESP 18; TEMP 36.8; O2SAT 95
--- NOTE | 2019-10-07 18:32 | NURSING ---
dr Aaron in to assess pt c/o eye pain, light sensitivity, worsening vision, hard to keep eyes open. new order to make appt with [facility]. done, pt going on 10/10 @ 4:20p, to transport.
[2019-10-07] MEDS: Doxepin Hcl 25 MG Capsule PO (20:13)
[2019-10-07] MEDS: Atorvastatin Calcium 20 MG Tablet PO (20:13)
[2019-10-08] MEDS: oxyCODONE 5 MG Tablet 10 MG PO (03:28)
[2019-10-08] MEDS: Glucerna Shake 120 ML LIQUID PO ×4 (05:33→20:19)
[2019-10-08 05:34] VITALS: BP 144/57; PULSE 85
[2019-10-08] MEDS: amLODIPine 10 MG Tablet PO (05:34)
[2019-10-08] MEDS: Pantoprazole Sodium 40 MG Tablet PO (05:34)
[2019-10-08] MEDS: Metoclopramide 10 MG Tablet PO ×4 (05:34→20:20)
[2019-10-08] MEDS: Metoprolol(XL)Succ 25 MG Tablet PO (05:34)
[2019-10-08] MEDS: Cyanocobalamin 500 MCG Tablet 1000 MCG PO (05:35)
[2019-10-08 06:30] LABS: Bedside Glucose 150 mg/dL (70-110)
[2019-10-08 07:48] LABS: Absolute Lymphocyte Count 1.06 X10^3/uL (0.83-4.51); Absolute Neutrophil Count 10.4 X10^3/uL (2.0-7.7); Basophil# 0.03 X10^3/uL; Basophil% 0.2 % (0-1); Eosinophil# 0.17 X10^3/uL; Eosinophils% 1.4 % (0-5); Hematocrit 25.1 % (40-54); Hemoglobin 8.2 g/dL (13.0-16.5); Lymphocyte # 1.06 X10^3/ul (4.0); Lymphocyte % 8.4 % (19-41); Mean Corp Hgb Conc 32.7 g/dL (32-36); Mean Corpuscular Hgb 31.7 pg (27.0-32.0); Mean Corpuscular Volume 96.9 fL (80-94); Mean Platelet Vol. 9.1 fl (6.2-12.0); Monocyte# 0.84 X10^3/uL; Monocyte% 6.7 % (0-10); NRBC Flagged by Analyzer 0 % (0-5); Neutrophil # 10.37 X10^3/uL (2.7-7.7); Neutrophil % 82.4 % (47-70); Platelet Count 516 K/mm3 (150-450); RBC Distribution Width CV 14.1 % (11.6-14.6); RBC Distribution Width SD 49.6 fl (35.1-43.9); Red Blood Count 2.59 M/mm3 (4.6-6.2); White Blood Count 12.6 K/mm3 (4.4-11.0)
[2019-10-08 08:01] LABS: Anion Gap 5 (5-15); BUN 25 mg/dL (7-18); BUN/Creat Ratio 14.5 RATIO (10-20); Calcium,Total 7.8 mg/dL (8.5-10.1); Chloride 100 mmol/L (98-107); Creatinine, Serum 1.72 mg/dL (0.70-1.30); EST Glomerular Filtration Rate 41 mL/min (>60); Est Glom Filt Rate - Afr Amer 50 mL/min (>60); Estimated Creatinine Clearance 35.18 ml/min; Glucose 149 mg/dL (74-106); Potassium 5.1 mmol/L (3.5-5.1); Sodium Level 132 mmol/L (136-145)
[2019-10-08] MEDS: Aspirin 81 MG TAB.CHEW PO (09:13)
[2019-10-08] MEDS: metFORMIN HCl 500 MG Tablet PO ×2 (09:13→16:34)
--- NOTE | 2019-10-08 09:21 | NURSING ---
0900 into pt room, ostomy appliance leaking around lower end. cleaned around appliance, applied stoma adhesive. new ostomy bag applied. will monitor Mari Neri RN
[2019-10-08 09:42] VITALS: PULSE 80; O2SAT 96
[2019-10-08] MEDS: Tuberculin,Purif.prot.deriv. 50 TU/ML Vial 5 ML ID (11:13)
--- NOTE | 2019-10-08 15:36 | NURSING ---
Colostomy appliance and bag changed d/t leakage.
[2019-10-08 16:00] VITALS: BP 137/70; PULSE 84; RESP 20; TEMP 37.2; O2SAT 90
[2019-10-08 18:00] VITALS: BP 137/57; PULSE 96; RESP 16; TEMP 39.3; O2SAT 100
--- NOTE | 2019-10-08 18:02 | NURSING ---
Notified Dr. Aaron of patient's current V.S. and c/o not feeling well. Received order for Cipro 500mg BID x 7 days, 2 sets of Blood culture and UA and CS. Orders repeated back. Will add orders.
[2019-10-08 19:28] LABS: Mucous, Urine 0 SEEN /hpf (<or=2+); Red Blood Cells-Urine 0 SEEN /hpf (0-5); Squamous Epithelial Cells - UA 0 SEEN /hpf (0-5)
[2019-10-08 19:47] LABS: Color, Urine Yellow (Yellow); Glucose, Dipstick Normal (Normal); Ketone-Dipstick Negative (Negative); Leukocyte Esterase-Dipstick 500 /ul (Negative); Nitrite-Dipstick Positive (Negative); Occult Blood-Urine 25 /ul (Negative); Protein-Dipstick 30 mg/dl (Negative); Urine Bilirubin Dipstick Negative (Negative); Urine Clarity Clear (Clear); Urine Urobilinogen Normal (Normal)
[2019-10-08 20:00] LABS: White Blood Cells 25-50 SEEN /hpf (0-5)
[2019-10-08 20:01] LABS: Bacteria 2+ /hpf (None Seen); Yeast-Urine 3+ /hpf (None Seen)
[2019-10-08] MEDS: Ciprofloxacin 500 MG Tablet PO (20:18)
[2019-10-08] MEDS: Acetaminophen 500 MG Tablet 1000 MG PO (20:18)
[2019-10-08] MEDS: Bisacodyl 5 MG Tablet 10 MG PO (20:19)
[2019-10-08] MEDS: Atorvastatin Calcium 20 MG Tablet PO (20:19)
[2019-10-08] MEDS: Doxepin Hcl 25 MG Capsule PO (20:20)
[2019-10-08 20:31] VITALS: TEMP 38.8
--- NOTE | 2019-10-08 20:31 | NURSING ---
2014- temperature 101.8 temporal thermometer, Alexis arrived from pharmacy and was administered. PRN tylenol administered for abdominal pain, see MAR. PRN dulcolax administered due to hard stool noted in colostomy. at bedside and updated on plan of care.
[2019-10-09] MEDS: oxyCODONE 5 MG Tablet 10 MG PO ×2 (00:24→22:00)
[2019-10-09] MEDS: Ciprofloxacin 500 MG Tablet PO (04:43)
[2019-10-09] MEDS: Acetaminophen 500 MG Tablet 1000 MG PO ×3 (04:43→18:37)
[2019-10-09 04:44] VITALS: BP 134/58; PULSE 84
[2019-10-09] MEDS: amLODIPine 10 MG Tablet PO (04:44)
[2019-10-09] MEDS: Glucerna Shake 120 ML LIQUID PO ×3 (04:44→18:38)
[2019-10-09] MEDS: Pantoprazole Sodium 40 MG Tablet PO (04:44)
[2019-10-09] MEDS: Polyethylene Glycol 3350 17 GM PACKET PO (04:44)
[2019-10-09] MEDS: Cyanocobalamin 500 MCG Tablet 1000 MCG PO (04:44)
[2019-10-09] MEDS: Metoprolol(XL)Succ 25 MG Tablet PO (04:44)
[2019-10-09 04:56] VITALS: TEMP 38.3
[2019-10-09 06:21] LABS: Bedside Glucose 172 mg/dL (70-110)
[2019-10-09] MEDS: Aspirin 81 MG TAB.CHEW PO (08:00)
[2019-10-09] MEDS: metFORMIN HCl 500 MG Tablet PO ×2 (08:00→18:36)
[2019-10-09] MEDS: Iron Polysaccharide Complex 150 MG CAPSULE PO (08:00)
--- NOTE | 2019-10-09 13:57 | NURSING ---
Patient informed this nurse that he would like to change his code status to Full Code, educated the patient on Full code and he affirmed that he wants to be a full code. Will change code status in computer system.
[2019-10-09 16:00] VITALS: BP 118/55; PULSE 70; RESP 18; TEMP 38.1; O2SAT 94
--- NOTE | 2019-10-09 18:33 | NURSING ---
Notified Dr Aaron that both of patient's blood cultures were positive for gram negative rods
[2019-10-09] MEDS: 0.9% Normal Saline 1,000 ML 75 ML IV (18:59)
--- NOTE | 2019-10-09 21:06 | NURSING ---
1930- Pt started drinking oral contrast for CT 2100- Pt completed drinking oral contrast for CT. remains at bedside. Pt A&Ox3, denies pain at this time.
[2019-10-09] MEDS: Doxepin Hcl 25 MG Capsule PO (21:56)
[2019-10-09] MEDS: Atorvastatin Calcium 20 MG Tablet PO (21:56)
--- NOTE | 2019-10-09 23:33 | NURSING ---
Addendum entered by An Faith 10/10/19 02:16: 0200- pt's cell phone, mushroom picker, dentures, glasses, and stoma supplies given to him in ER. Addendum entered by An Faith 10/10/19 01:50: 0150- called to notify her patient's belongings are at TCU ready to be picked up. She states she will likely be in tomorrow. Addendum entered by An Faith 10/09/19 23:53: 2350- Pt transferred to ER via wheelchair Original Note: 2330- Pt to be sent to emergency department due to fevers, gram negative rods in blood cultures, and abcesses on CT from previous surgery per Dr. Aaron. Patient and patient's , Patti updated and report called to emergency department.
--- NOTE | 2019-10-10 08:28 | DCINST_ITS ---
You will use the following diet at home:: No restrictions, Regular Your food should be the consistency of: Regular Your liquids should be the consistency of: Regular/Thin Discharge Activity: Return to Normal Activity, May Shower, Use Walker Weight Bearing Status: Weight bearing as tolerated Call your doctor if you observe: Fever of 101 or Higher, Inability to urinate, Inability to have a bowel movement, Shortness of breath, Chest pain, Uncontrolled pain Allergies/Adverse Reactions: Allergies No Known Allergies Allergy (Verified 10/09/19 23:53) Medications to take at Discharge Aspirin [Aspirin, Baby] 81 mg PO DAILY@0800 06/11/18 Metoprolol Succinate [Toprol Xl] 25 mg PO DAILY 06/11/18 Omeprazole 40 mg PO DAILY 06/11/18 Tamsulosin HCl [Flomax] 0.4 mg PO DAILY 06/11/18 metFORMIN HCl [Glucophage] 500 mg PO BIDCM 06/11/18 Acetaminophen [Tylenol Arthritis] 650 mg PO Q8H PRN PRN 09/30/19 Amlodipine [Norvasc] 10 mg PO DAILY 09/30/19 Cyanocobalamin (Vitamin B-12) [Vitamin B-12] 1,000 mcg PO DAILY 09/30/19 Heparin Injection 5,000 units SUBCUT Q8 09/30/19 Oxybutynin Chloride [Oxybutynin Chloride ER] 15 mg PO DINNER 09/30/19 Oxycodone HCl/Acetaminophen [Oxycodone-Acetaminophen 5-325] 1 ea PO Q4H PRN PRN 09/30/19 Rosuvastatin Calcium 5 mg PO DAILY 09/30/19 Sulfasalazine [Azulfidine] 500 mg PO BID 09/30/19 Vitamin B12 1,000 mcg PO DAILY 09/30/19 Primary Care Physician: Franco Shin MD [Primary Care Provider] - Please follow up with your Primary Care Physician in: 1 week. Test Results: Test results from this visit will be discussed in further detail at your follow- up appointment, if applicable. Please Follow Up With: Alice Wise When: 2 weeks Please Follow Up With: Kaveh [place] Please Follow Up With: [facility] Proposed Discharge Date: 10/09/19
--- NOTE | 2019-10-10 08:30 | PCM.DC.SUM ---
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 10/08/2019 Fever, blood & urine cultures sent, started on Cipro for presumed urinary tract infection. 10/09/2019 Persistent Fever, Urine culture growing staph, GNR, blood culture growing GNR aerobic, anaerobic bottles, antibiotic changed to Meropenem, CT A/P showed multiple fluid collections consistent with intraabdominal abscess. Discharge to [facility] Emergency Department for evaluation, admission to [facility]. - Physical Exam Vitals/I&O's: Vital Signs Temp Pulse Resp BP Pulse Ox 100.6 F H 70 18 118/55 L 94 10/09/19 16:00 10/09/19 16:00 10/09/19 16:00 10/09/19 16:00 10/09/19 16:00 Oxygen Flow Rate (L/min) 94 Oxygen Delivery Method Room Air Weight: 69.144 kg Body Mass Index (BMI) 23.1 Intake and Output for Last 24 Hours 10/08/19 10/09/19 10/10/19 23:59 23:59 23:59 Intake Total 540 / 540 1185 / 1185 Output Total 1925 / 1925 1904 / 1904 Balance -1385 / -1385 -719 / -719 Microbiology Past 72 Hours 10/08/19 18:15 Blood Culture (Wb) - Anticubital Right Blood Culture - Preliminary 10/08/19 18:30 Blood Culture (Wb) - Anticubital Right Blood Culture - Preliminary 10/08/19 18:45 Urine Catheter - Morris Urine Culture - Preliminary Staphylococcus species 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 Discharge Diet: No Restrictions Discharge Activity: Return to Normal Activity, May Shower, Use Walker Weight Bearing Status: Weight bearing as tolerated Call your doctor if you observe: Fever of 101 or Higher, Inability to urinate, Inability to have a bowel movement, Shortness of breath, Chest pain, Uncontrolled pain Home Medications: Medications to take at Discharge Aspirin [Aspirin, Baby] 81 mg PO DAILY@0800 06/11/18 Metoprolol Succinate [Toprol Xl] 25 mg PO DAILY 06/11/18 Omeprazole 40 mg PO DAILY 06/11/18 Tamsulosin HCl [Flomax] 0.4 mg PO DAILY 06/11/18 metFORMIN HCl [Glucophage] 500 mg PO BIDCM 06/11/18 Acetaminophen [Tylenol Arthritis] 650 mg PO Q8H PRN PRN 09/30/19 Amlodipine [Norvasc] 10 mg PO DAILY 09/30/19 Cyanocobalamin (Vitamin B-12) [Vitamin B-12] 1,000 mcg PO DAILY 09/30/19 Heparin Injection 5,000 units SUBCUT Q8 09/30/19 Oxybutynin Chloride [Oxybutynin Chloride ER] 15 mg PO DINNER 09/30/19 Oxycodone HCl/Acetaminophen [Oxycodone-Acetaminophen 5-325] 1 ea PO Q4H PRN PRN 09/30/19 Rosuvastatin Calcium 5 mg PO DAILY 09/30/19 Sulfasalazine [Azulfidine] 500 mg PO BID 09/30/19 Vitamin B12 1,000 mcg PO DAILY 09/30/19 Primary Care Physician: Franco Shin MD [Primary Care Provider] - Please follow up with your Primary Care Physician in: 1 week. Please Follow Up With: Alice Wise When: 2 weeks Please Follow Up With: Kaveh [place] Please Follow Up With: [facility] Disposition: Acute care Hospital Minutes spent on discharge:: 30 Patient Condition:: Critical Medical Necessity - Tobacco Use Smoking Status: Former smoker Tobacco Use: Cigarettes Meaningful Use Info Meaningful Use Diagnoses (Choose all that apply): None applicable
--- NOTE | 2019-10-10 13:08 | MDS.RN ---
Information for the mds was obtained from review of the clinical record, interview of resident, staff, and direct observation of resident's care.
== END 2019-10-10 02:00 | disposition short-term general hospital (02) | DRG 949 ==
PROVIDERS: Admitting Provider Family Medicine Geriatric Medicine; Family Provider Family Medicine; PCP Family Medicine; Visit Provider Family Medicine Geriatric Medicine
DX: Z48.816 Encounter for surgical aftercare following surgery on the genitourinary system (principal); K65.1 Peritoneal abscess; B37.0 Candidal stomatitis; N39.0 Urinary tract infection, site not specified; N18.9 Chronic kidney disease, unspecified; E11.22 Type 2 diabetes mellitus with diabetic chronic kidney disease; I12.9 Hypertensive chronic kidney disease with stage 1 through stage 4 chronic kidney disease, or unspecified chronic kidney disease; K21.9 Gastro-esophageal reflux disease without esophagitis; C67.9 Malignant neoplasm of bladder, unspecified; E78.5 Hyperlipidemia, unspecified; N40.1 Benign prostatic hyperplasia with lower urinary tract symptoms; R35.1 Nocturia; K52.9 Noninfective gastroenteritis and colitis, unspecified; N32.81 Overactive bladder; Z87.891 Personal history of nicotine dependence
CPT/HCPCS: 36415; 74018; 80048; 81001; 82962; 85014; 85018; 85025; 87040; 87076; 87077; 87086; 87088; 87186; 97110; 97116; 97162; 97165; 97530; 97535; 97802; J2185; J7030

== ENCOUNTER → 2019-10-09 19:07 | Outpatient (CLI) | payer MEDICARE, SELFPAY ==
[2019-09-30 16:36] VITALS: BMI 23.1
--- NOTE | 2019-10-09 19:30 | CT_ITS ---
We are attempting to reach an attending provider to discuss findings. An addendum with communication details will be sent when the communication is complete. STUDY: CT ABDOMEN AND PELVIS WITHOUT CONTRAST REASON FOR EXAM: Male, 79 years old. CONCERN FOR ABSCESS, MID ABD PAIN, RECENT TURP WITH ILEO CONDUIT, BLADDER CA, HEPATOJEJUNOSTOMY, HTN, CKD, GB, DIAB RADIATION DOSAGE (If Supplied By Facility): CTDIvol = ( 8.25 ) mGy, DLP = ( 455.46 ) mGycm TECHNIQUE: Transaxial images were obtained from the dome of the diaphragm to the symphysis pubis without oral contrast, and without intravenous contrast. Sagittal and coronal images were reconstructed. Individualized dose optimization techniques were used for this CT. COMPARISON: None. FINDINGS: The visualized lung bases demonstrate bibasilar scarring. The visualized portions of the heart demonstrate coronary artery disease. Liver demonstrates pneumobilia. There are surgical clips in the gallbladder fossa consistent with a prior cholecystectomy. Normal spleen. There is diffuse atrophy of the pancreas. Normal bilateral adrenal glands. Absent right kidney. Mild left hydronephrosis. A ureteral stent is in place extending from the left renal pelvis through an ileal conduit exiting the right anterior abdominal wall. Normal visualized stomach. Patient is status post hepaticojejunostomy. Extensive surgical changes are noted. Ostomy is seen at the left lower quadrant anteriorly. Foci of gas are seen extending into the subcutaneous tissues of the left lateral abdominal wall. Appendix not visualized. The rectum appears fluid-filled. There is diffuse atherosclerotic calcification of the abdominal aorta with elongation and tortuosity, but without a demonstrated aneurysm. Normal inferior vena cava. Fluid collection is noted within the superior right renal fossa measuring approximately 3.6 x 6.2 cm x 5.6 cm. Absent urinary bladder and prostate. A small fluid collection with associated small gas bubble is seen deep to the midline surgical judy. No acute fracture or destructive osseous process. CT/Abdomen/Pel W ORAL Cont Only IMPRESSION: Extensive postsurgical changes as above including pneumobilia. Limited evaluation for abscess secondary to lack of intravenous contrast. There is a fluid collection within the right renal fossa which may represents an abscess. Additionally a small fluid collection is seen deep to the midline surgical judy. Consider ultrasound for evaluation of these 2 areas to help better assess for abscess. Findings discussed with Dr. Aaron by Dr. Gibson on 10/09/2019 11:12 PM via telephone. Electronically Signed: Jose Gibson, at 23:15 EST Tel , Service support ,
== END ==
PROVIDERS: Family Provider Family Medicine; PCP Family Medicine; Referring Provider Family Medicine Geriatric Medicine; Visit Provider Family Medicine Geriatric Medicine
DX: R18.8 Other ascites (principal)
CPT/HCPCS: 74176

== ENCOUNTER 2019-10-09 23:52 | Emergency (ER) | payer MEDICARE, SELFPAY ==
[2019-09-30 16:36] VITALS: BMI 23.1
[2019-10-09 23:54] VITALS: BP 127/65; PULSE 95; RESP 17; TEMP 37.4; O2SAT 97; BMI 22.6
[2019-10-10 00:05] VITALS: BP 127/65; PULSE 95; RESP 17; TEMP 37.4; O2SAT 97
--- NOTE | 2019-10-10 00:18 | ED.VIS.GEN ---
History of Present Illness Chief Complaint: Abd Pain Informant: Patient Onset: Days Narrative: Patient presents from the TCU unit. Patient underwent ileal conduit, cystectomy, colostomy at [facility] on 09/26. He was admitted to the TCU on 09/30. Patient reports developing fevers on October 07. On review of records it appears blood work was performed. Urinalysis showed sign of infection and he was started on Cipro. Blood cultures were called on the afternoon of October 09 to show gram-negative rods and patient was given a dose of meropenem. Patient underwent a CT scan of his abdomen this evening and report reveals fluid collection within the right renal fossa which may represent an abscess. There is an additional small fluid collection seen deep to the midline surgical judy. This smaller fluid collection does have associated gas bubble. Patient was sent to the ED for transfer to [facility]. - Past Medical History (1) Bladder cancer Status: Chronic (2) Chronic kidney disease Status: Chronic (3) Diabetes mellitus Status: Chronic (4) GERD (gastroesophageal reflux disease) Status: Chronic (5) Hypertension Status: Chronic Past Medical History - Allergies and Home Meds Allergies/Adverse Reactions: Allergies No Known Allergies Allergy (Verified 10/09/19 23:53) Primary Care Physician: Franco Shin MD [Primary Care Provider] - Prior records reviewed: Yes Surgical History: cataract, cholecystectomy - bile duct injury., - - TURBT x 3, Exploratory laparotomy, hepatojejunostomy with wound vac, liver resection, DCS: A-10C [facility] Lives: Spouse/ Significant Other Smoking Status: Former smoker - Family History Maternal Family History: Reports: Diabetes, Dementia Sibling Family History: Reports: COPD - Brother. Review of Systems General: Reports: Fever Eyes: Denies: Visual changes - bilaterally ENT: Denies: Bilateral ear pain Cardiovascular: Denies: Chest pain Respiratory: Denies: Dyspnea, Cough Gastrointestinal: Reports: Abdominal pain - Mild postoperative abdominal pain Musculoskeletal: Denies: Swelling, Extremity Pain Skin: Denies: Rash Neurological: Denies: Headache Allergy: Denies: Uticaria Physical Exam Vital Signs/Narrative: Vital Signs Temp Pulse Resp BP Pulse Ox 10/10/19 00:05 99.3 F H 95 17 127/65 H 97 10/09/19 23:54 99.3 F H 95 17 127/65 H 97 Inital Vital Signs reviewed: Yes General: Well nourished, Well developed Head: Normocephalic ENT: Moist mucous membranes Neck: Supple Cardiovascular: Regular rate, Regular rhythm Respiratory: No distress, CTA bilaterally Abdomen: Soft, Nontender, - - Colostomy noted in left lower quadrant with good output. JOHNNY drain noted protruding through left anterior abdominal wall. Skin: Pallor Neurological: Alert, Oriented x3 Psychological: Normal affect Diagnostic/Tx/Re-eval Laboratory Results 10/10/19 10/10/19 00:20 00:20 WBC 9.1 RBC 2.57 L Hgb 8.0 L Hct 24.7 L MCV 96.1 H MCH 31.1 MCHC 32.4 RDW Std Deviation 46.7 H RDW Coeff of Concha 13.2 Plt Count 585 H MPV 8.8 Immature Gran % (Auto) 0.800 Neut % (Auto) 72.5 H Lymph % (Auto) 14.0 L [place] % (Auto) 9.9 Eos % (Auto) 2.5 Baso % (Auto) 0.3 Absolute Neuts (auto) 6.6 Absolute Lymphs (auto) 1.27 Nucleated RBC % 0 Sodium 131 L Potassium 5.5 H Chloride 101 Carbon Dioxide 26.0 Anion Gap 4 L BUN 29 H Creatinine 1.88 H Estim Creat Clear Calc 34.26 Est GFR (MDRD) Af Amer 45 L Est GFR (MDRD) Non-Af 37 L BUN/Creatinine Ratio 15.4 Glucose 132 H Calcium 8.0 L - Medical Decision Making CT scan and culture results obtained in TCU were reviewed. I called [facility] for transfer, however was advised that they had 0 beds and were not willing to accept any transfers. I explained that this was a postop complication of the surgery was performed at [facility] and they advised me that did not matter they would not be able to take the patient and recommended I try the other [facility] facilities. I spoke with [facility] transfer line and patient has been accepted by Dr. Lowe. Patient is due for his second dose of meropenem in approximately 30 minutes and that will be given here in the emergency room. ED Disposition - Plan for ED Patient: Disposition: [facility] - Main Diagnosis: Postoperative abscess Referrals: Franco Shin MD [Primary Care Provider] -
[2019-10-10 00:28] LABS: Absolute Lymphocyte Count 1.27 X10^3/uL (0.83-4.51); Absolute Neutrophil Count 6.6 X10^3/uL (2.0-7.7); Basophil# 0.03 X10^3/uL; Basophil% 0.3 % (0-1); Eosinophil# 0.23 X10^3/uL; Eosinophils% 2.5 % (0-5); Hematocrit 24.7 % (40-54); Lymphocyte # 1.27 X10^3/ul (4.0); Mean Corp Hgb Conc 32.4 g/dL (32-36); Mean Corpuscular Hgb 31.1 pg (27.0-32.0); Mean Corpuscular Volume 96.1 fL (80-94); Mean Platelet Vol. 8.8 fl (6.2-12.0); Monocyte% 9.9 % (0-10); NRBC Flagged by Analyzer 0 % (0-5); Neutrophil # 6.58 X10^3/uL (2.7-7.7); Neutrophil % 72.5 % (47-70); Platelet Count 585 K/mm3 (150-450); RBC Distribution Width CV 13.2 % (11.6-14.6); RBC Distribution Width SD 46.7 fl (35.1-43.9); Red Blood Count 2.57 M/mm3 (4.6-6.2); White Blood Count 9.1 K/mm3 (4.4-11.0)
[2019-10-10 00:54] LABS: BUN 29 mg/dL (7-18); Creatinine, Serum 1.88 mg/dL (0.70-1.30); Estimated Creatinine Clearance 34.26 ml/min; Glucose 132 mg/dL (74-106)
[2019-10-10 00:55] LABS: Anion Gap 4 (5-15); BUN/Creat Ratio 15.4 RATIO (10-20); Chloride 101 mmol/L (98-107); EST Glomerular Filtration Rate 37 mL/min (>60); Est Glom Filt Rate - Afr Amer 45 mL/min (>60); Potassium 5.5 mmol/L (3.5-5.1); Sodium Level 131 mmol/L (136-145)
[2019-10-10 02:14] VITALS: BP 137/60; PULSE 81; RESP 17; TEMP 37.4; O2SAT 94
[2019-10-10 03:11] VITALS: BP 137/44; PULSE 80; RESP 20; TEMP 37.5; O2SAT 96
--- NOTE | 2019-10-10 03:36 | ED.RN ---
Attempted to call report. Lorraine PRAJAPATI was unable to connect me to RN taking report. Phone number left and CC RN will call me back.
[2019-10-10 03:57] VITALS: BP 137/74; PULSE 80; RESP 18; O2SAT 96
--- NOTE | 2019-10-10 04:00 | ED.RN ---
Spoke with Patti, , update on transfer and bed number.
== END 2019-10-10 03:50 | disposition short-term general hospital (02) ==
PROVIDERS: Emergency Provider Emergency Medicine; Family Provider Family Medicine; PCP Family Medicine
DX: T81.41XA Infection following a procedure, superficial incisional surgical site, initial encounter (principal); Z93.3 Colostomy status; E11.22 Type 2 diabetes mellitus with diabetic chronic kidney disease; I12.9 Hypertensive chronic kidney disease with stage 1 through stage 4 chronic kidney disease, or unspecified chronic kidney disease; N18.9 Chronic kidney disease, unspecified; K21.9 Gastro-esophageal reflux disease without esophagitis; Z85.51 Personal history of malignant neoplasm of bladder; Z79.82 Long term (current) use of aspirin; Z79.84 Long term (current) use of oral hypoglycemic drugs; Z79.899 Other long term (current) drug therapy; Z87.891 Personal history of nicotine dependence; R18.8 Other ascites
CPT/HCPCS: 36415; 74176; 80048; 85025; 96365; 96366; 99283; J2185; J7050; A4216

== ENCOUNTER 2019-10-21 14:15 | Emergency (ER) | payer MEDICARE, SELFPAY ==
[2019-10-21 14:15] VITALS: BP 130/71; PULSE 99; RESP 16; TEMP 35.8; O2SAT 98; BMI 20.2
--- NOTE | 2019-10-21 14:44 | EKG12_ITS ---
Test Reason : DIZZINESS Blood Pressure : / mmHG Vent. Rate : 073 BPM Atrial Rate : 073 BPM P-R Int : 178 ms QRS Dur : 094 ms QT Int : 410 ms P-R-T Axes : 044 043 052 degrees QTc Int : 451 ms Sinus rhythm with Premature atrial complexes Otherwise normal ECG Confirmed by RIDDHI FRANKS, YANI ([id number]), scientific publications editor EL ELLISON ([id number]) on 10/25/2019 9:04:24 AM Referred By: LAMIN Confirmed By:YANI HANNON MD
--- NOTE | 2019-10-21 14:45 | ED.DCSUM_ITS ---
History of Present Illness Chief Complaint: Dizziness Informant: Patient, Family Onset: Yesterday Current Severity: Mild Maximum Severity: Severe Narrative: Patient presents with dizziness that is consistent with prior episodes of vertigo. Patient recently has been in the hospital secondary to bladder cancer. He had his bladder removed and urostomy tubes placed. Patient then developed an abscess and was sent to [facility]. He was recently discharged from there. Patient states that yesterday he had a CT scan and [place]. When they got him up off of the CT table he developed vertigo. He was seen in the ER there and diagnosed with constipation. He states his vertigo had resolved when he left the emergency room. He went to a doctor's appointment in [place] today. After stopping for fast food on the way home patient became very nauseated with cold, clammy sweats. Patient had dry heaves and vomiting on the side of the road. He states that also triggered his vertigo again. He denies chest pain or palpitations. - Past Medical History (1) Bile duct injury Status: Chronic (2) Bladder cancer Status: Chronic (3) Chronic kidney disease Status: Chronic (4) Diabetes mellitus Status: Chronic (5) GERD (gastroesophageal reflux disease) Status: Chronic (6) Hypertension Status: Chronic Past Medical History - Allergies and Home Meds Allergies/Adverse Reactions: Allergies No Known Allergies Allergy (Verified 10/09/19 23:53) Primary Care Physician: Franco Shin MD [Primary Care Provider] - Prior records reviewed: Yes Surgical History: cataract, cholecystectomy - bile duct injury., - - TURBT x 3, Exploratory laparotomy, hepatojejunostomy with wound vac, liver resection, DCS: A-10C War[place] Lives: Spouse/ Significant Other Smoking Status: Former smoker - Family History Maternal Family History: Reports: Diabetes, Dementia Sibling Family History: Reports: COPD - Brother. Review of Systems General: Denies: Chills, Fever Eyes: Denies: Visual changes - bilaterally ENT: Denies: Bilateral ear pain Cardiovascular: Denies: Chest pain, Palpitations Respiratory: Denies: Dyspnea, Cough Gastrointestinal: Reports: Nausea, Vomiting. Denies: Abdominal pain Genitourinary: Denies: Dysuria Musculoskeletal: Denies: Extremity Pain Skin: Denies: Rash Neurological: Denies: Headache Endocrine: Denies: Polyuria, Polydipsia Allergy: Denies: Uticaria Physical Exam Vital Signs/Narrative: Vital Signs Temp Pulse Resp BP Pulse Ox 10/21/19 14:15 96.4 F L 99 16 130/71 H 98 Inital Vital Signs reviewed: Yes General: Well nourished, Well developed Head: Normocephalic Eyes: Perrl, EOMI ENT: Moist mucous membranes Neck: Supple Cardiovascular: Regular rate, Regular rhythm Respiratory: No distress, CTA bilaterally Abdomen: Soft, Nontender Extremities: Nontender Skin: Normal color, No rash Neurological: Alert, Oriented x3, Normal Strength, Normal Sensation, - - Mviizc-vs-tqqg testing is normal. Psychological: Normal affect Diagnostic/Tx/Re-eval Laboratory Results 10/21/19 10/21/19 15:15 15:15 WBC 13.7 H RBC 2.84 L Hgb 9.0 L Hct 27.8 L MCV 97.9 H MCH 31.7 MCHC 32.4 RDW Std Deviation 57.8 H RDW Coeff of Concha 16.0 H Plt Count 487 H MPV 8.5 Immature Gran % (Auto) 1.200 H Neut % (Auto) 82.8 H Lymph % (Auto) 7.7 L [place] % (Auto) 6.6 Eos % (Auto) 1.5 Baso % (Auto) 0.2 Absolute Neuts (auto) 11.3 H Absolute Lymphs (auto) 1.05 Nucleated RBC % 0 Sodium 138 Potassium 5.1 Chloride 107 Carbon Dioxide 25.0 Anion Gap 6 BUN 33 H Creatinine 2.13 H Estim Creat Clear Calc 27.07 Est GFR (MDRD) Af Amer 39 L Est GFR (MDRD) Non-Af 32 L BUN/Creatinine Ratio 15.5 Glucose 192 H Calcium 8.5 - EKG Initial EKG Interpretation: Sinus Rhythm - Sinus at 73 with no acute ischemia. He does have pronounced T waves in the anterolateral leads. There are no prior studies available for comparison. - Medical Decision Making Patient was given p.o. Antivert. On repeat evaluation he does feel improved. Wound care nurse was able to change his stoma bags. Social work was able to arrange home health with stoma training to come in and help family. He will be given a prescription for Antivert. He is to return for worsening symptoms or concerns. ED Disposition - Plan for ED Patient: Disposition: Home or Assisted Living Diagnosis: Vertigo Instructions: VERTIGO, Unspecified Prescriptions: Meclizine HCl [Antivert] 25 mg PO 4X/DAY PRN PRN #20 tab PRN Reason: Dizziness Transmission Status: Pending to [id number] Referrals: Franco Shin MD [Primary Care Provider] - 3-5 Days if not improving
[2019-10-21 15:26] LABS: Absolute Lymphocyte Count 1.05 X10^3/uL (0.83-4.51); Absolute Neutrophil Count 11.3 X10^3/uL (2.0-7.7); Basophil# 0.03 X10^3/uL; Basophil% 0.2 % (0-1); Eosinophil# 0.21 X10^3/uL; Eosinophils% 1.5 % (0-5); Hematocrit 27.8 % (40-54); Lymphocyte # 1.05 X10^3/ul (4.0); Lymphocyte % 7.7 % (19-41); Mean Corp Hgb Conc 32.4 g/dL (32-36); Mean Corpuscular Hgb 31.7 pg (27.0-32.0); Mean Corpuscular Volume 97.9 fL (80-94); Mean Platelet Vol. 8.5 fl (6.2-12.0); Monocyte# 0.91 X10^3/uL; Monocyte% 6.6 % (0-10); NRBC Flagged by Analyzer 0 % (0-5); Neutrophil # 11.33 X10^3/uL (2.7-7.7); Neutrophil % 82.8 % (47-70); Platelet Count 487 K/mm3 (150-450); RBC Distribution Width SD 57.8 fl (35.1-43.9); Red Blood Count 2.84 M/mm3 (4.6-6.2); White Blood Count 13.7 K/mm3 (4.4-11.0)
[2019-10-21] MEDS: Meclizine HCl 25 MG Tablet PO (15:36)
[2019-10-21] MEDS: 0.9% Normal Saline 1,000 ML 150 ML IV (15:36)
[2019-10-21 15:39] VITALS: BP 124/66; PULSE 74; RESP 20; O2SAT 99
[2019-10-21 15:39] LABS: Anion Gap 6 (5-15); BUN 33 mg/dL (7-18); BUN/Creat Ratio 15.5 RATIO (10-20); Calcium,Total 8.5 mg/dL (8.5-10.1); Chloride 107 mmol/L (98-107); Creatinine, Serum 2.13 mg/dL (0.70-1.30); EST Glomerular Filtration Rate 32 mL/min (>60); Est Glom Filt Rate - Afr Amer 39 mL/min (>60); Estimated Creatinine Clearance 27.07 ml/min; Glucose 192 mg/dL (74-106); Potassium 5.1 mmol/L (3.5-5.1); Sodium Level 138 mmol/L (136-145)
--- NOTE | 2019-10-21 16:00 | CM.ED ---
SOCIAL WORK INFORMANT: DR. KIMBLE REASON FOR REFERRAL: RESOURCES MET WITH PATIENT AND , JORDAN IN ROOM. INTRODUCED ROLE AND REASON FOR REFERRAL. PATIENT WITH OSTOMY AND UROSTOMY IN PLACE. PATIENT AND REPORT CURRENTLY NO HOME HEALTH SERVICES IN PLACE. REVIEWED LIST OF PROVIDERS AND THEY REQUESTED REFERRAL TO [facility]. EDUCATION PROVIDED ON PALLIATIVE MEDICINE. WISHES TO REVIEW BROCHURE PROVIDED. ALL QUESTIONS ANSWERED. CALL TO ZULEYKA WITH [facility] TO UPDATE ON REFERRAL. RECOMMENDING SENIOR LIVING AND SOCIAL WORK. UPDATED DR. KIMBLE ON THIS WORKER'S CONVERSATION WITH PATIENT AND HOME HEALTH. NO FURTHER NEEDS AT THIS TIME. PLAN: HOME WITH REFERRAL TO [facility] FOR SENIOR LIVING AND SOCIAL WORK. INFORMATION PROVIDED ON PALLIATIVE SERVICES. Eric SOLORZANO MSW, INVENTORY SPECIALIST.
[2019-10-21 16:16] VITALS: BP 139/54; PULSE 86; RESP 21; O2SAT 97
[2019-10-21 17:05] VITALS: BP 139/84; PULSE 85; RESP 17; O2SAT 98
== END 2019-10-21 17:06 | disposition home or self-care (01) ==
PROVIDERS: Emergency Provider Emergency Medicine; PCP Family Medicine
DX: R42 Dizziness and giddiness (principal); I12.9 Hypertensive chronic kidney disease with stage 1 through stage 4 chronic kidney disease, or unspecified chronic kidney disease; E11.22 Type 2 diabetes mellitus with diabetic chronic kidney disease; N18.9 Chronic kidney disease, unspecified; K59.00 Constipation, unspecified; K21.9 Gastro-esophageal reflux disease without esophagitis; Z79.82 Long term (current) use of aspirin; Z79.84 Long term (current) use of oral hypoglycemic drugs; Z87.891 Personal history of nicotine dependence
CPT/HCPCS: 80048; 85025; 93005; 96360; 99285

== ENCOUNTER 2019-11-12 19:45 | Inpatient (IN) | payer MEDICARE, SELFPAY ==
[2019-11-12 19:48] VITALS: BP 117/67; PULSE 101; RESP 22; TEMP 36.7; O2SAT 98; BMI 21.9
[2019-11-12 20:22] LABS: Absolute Lymphocyte Count 1.12 X10^3/uL (0.83-4.51); Absolute Neutrophil Count 9.7 X10^3/uL (2.0-7.7); Basophil# 0.02 X10^3/uL; Basophil% 0.2 % (0-1); Eosinophil# 0.19 X10^3/uL; Eosinophils% 1.6 % (0-5); Hematocrit 31.1 % (40-54); Hemoglobin 10.4 g/dL (13.0-16.5); Lymphocyte # 1.12 X10^3/ul (4.0); Lymphocyte % 9.4 % (19-41); Mean Corp Hgb Conc 33.4 g/dL (32-36); Mean Corpuscular Hgb 31.6 pg (27.0-32.0); Mean Corpuscular Volume 94.5 fL (80-94); Mean Platelet Vol. 8.6 fl (6.2-12.0); Monocyte# 0.83 X10^3/uL; NRBC Flagged by Analyzer 0 % (0-5); Neutrophil # 9.72 X10^3/uL (2.7-7.7); Neutrophil % 81.5 % (47-70); POSITIVE MORPHOLOGY YES; Platelet Count 263 K/mm3 (150-450); RBC Distribution Width CV 13.6 % (11.6-14.6); RBC Distribution Width SD 47.7 fl (35.1-43.9); Red Blood Count 3.29 M/mm3 (4.6-6.2); White Blood Count 11.9 K/mm3 (4.4-11.0)
[2019-11-12 20:28] LABS: Differential Indicated SCAN CRITERIA MET
[2019-11-12 20:39] VITALS: BP 123/65; PULSE 86; RESP 24; TEMP 37.2; O2SAT 98
[2019-11-12] MEDS: 0.9% Normal Saline 1,000 ML 999 ML IV (20:41)
[2019-11-12 20:44] LABS: Platelet Estimate ADEQUATE (ADEQ)
[2019-11-12 20:45] LABS: Anisocytosis RARE; Macrocytosis RARE; Ovalocyte RARE; Red Cell Morphology N CHROM NORMAL (NORM C&C); Toxic Granulation RARE
[2019-11-12] MEDS: Ondansetron 4 MG/2 ML Vial IV (20:55)
[2019-11-12 20:56] VITALS: O2SAT 96
[2019-11-12 20:56] LABS: ALB/GLOB Ratio 0.6 RATIO (0.9-2.4); AST(SGOT) 12 U/L (15-37); Alanine Aminotransfer ALT/SGPT 18 U/L (16-61); Alkaline Phosphatase 92 U/L (45-117); Anion Gap 6 (5-15); BUN 22 mg/dL (7-18); BUN/Creat Ratio 13.7 RATIO (10-20); Chloride 101 mmol/L (98-107); Creatinine, Serum 1.61 mg/dL (0.70-1.30); EST Glomerular Filtration Rate 44 mL/min (>60); Est Glom Filt Rate - Afr Amer 54 mL/min (>60); Estimated Creatinine Clearance 36.73 ml/min; Globulin 5.1 g/dL (2.2-4.2); Glucose 142 mg/dL (74-106); Potassium 4.7 mmol/L (3.5-5.1); Protein, Total 8.1 g/dL (6.4-8.2); Sodium Level 132 mmol/L (136-145)
[2019-11-12 20:57] LABS: Lactic Acid 1.3 mmol/L (0.4-1.9)
[2019-11-12 20:57] LABS: Mucous, Urine 0 SEEN /hpf (<or=2+); Squamous Epithelial Cells - UA 0 SEEN /hpf (0-5)
--- NOTE | 2019-11-12 20:57 | ED.DCSUM_ITS ---
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 Patient is due to start chemotherapy this week. He is not started yet. His field investigator Dr. Sr. Patient states the past week he has had been having some left lower back pain and body aches. He denies any change in his urostomy or colostomy output. He denies any rash, chest pain, shortness of breath or cough. He does have some associated nausea but no vomiting. No other complaints at this time. Had Tylenol about 2 hours prior to arrival for his fever. Past Medical History - Allergies and Home Meds Allergies/Adverse Reactions: Allergies No Known Allergies Allergy (Verified 10/09/19 23:53) Surgical History: cataract, cholecystectomy - bile duct injury., - - TURBT x 3, Exploratory laparotomy, hepatojejunostomy with wound vac, liver resection, DCS: A-10C Warth[place] Lives: Spouse/ Significant Other Smoking Status: Former smoker - Family History Maternal Family History: Reports: Diabetes, Dementia Sibling Family History: Reports: COPD - Brother. Review of Systems General: Reports: Chills, Fever. Denies: Sweats Eyes: Denies: Visual changes - bilaterally, Diplopia ENT: Denies: Rhinorrhea, Sore throat Cardiovascular: Denies: Chest pain, Palpitations Respiratory: Denies: Dyspnea, Cough, Dyspnea on exertion Gastrointestinal: Denies: Abdominal pain, Nausea, Vomiting, Diarrhea, Melena, Hematochezia Genitourinary: Denies: Dysuria, Hematuria, Frequency Musculoskeletal: Reports: Back pain - left lower . Denies: Extremity Pain Skin: Denies: Rash, Wounds Neurological: Denies: Headache, Weakness, Numbness Physical Exam Vital Signs/Narrative: Vital Signs Temp Pulse Resp BP Pulse Ox 11/12/19 20:56 96 11/12/19 20:39 99.0 F 86 24 H 123/65 H 98 11/12/19 19:48 98.0 F 101 H 22 H 117/67 98 Inital Vital Signs reviewed: Yes General: Well nourished, Well developed, No Acute Distress Head: Normocephalic, Atraumatic Eyes: Perrl, EOMI ENT: Moist mucous membranes, No rhinorrhea Neck: Supple, Nontender Cardiovascular: Regular rate, Regular rhythm, No murmurs Respiratory: No distress, CTA bilaterally, Chest nontender Abdomen: Soft, Nondistended, Normal bowel sounds, - - Normal appearing stool in his colostomy. Urine noted in his urostomy. Mild tenderness to palpation just lateral to his colostomy. Patient states this is chronic and he has what he thinks is a seroma there. Back: Nontender, Normal Inspection, - - Mild tenderness to palpation of the left lower paraspinal lumbar region. Negative for: CVA tenderness, Spinal tenderness Extremities: Nontender, No edema Skin: Normal color, No rash Neurological: Alert, Oriented x3, Cranial nerves II-XII grossly intact, Normal Strength, Normal Sensation Psychological: Normal affect, Normal Mood Diagnostic/Tx/Re-eval Chest X-Ray - ED: 1 View, Read by ED Physician, Read by Radiologist, No Acute Disease Clinical Impression(s) from Imaging Studies Chest X-Ray 11/12/19 21:10 IMPRESSION: Chronic interestitial changes. No radiographic evidence of acute cardiopulmonary disease. at 2226 Reported and signed by: Larry Del Castillo MD Electronically Signed: Larry Del Castillo MD at 22:25 EST Tel , Service support , Laboratory Data 11/12/19 11/12/19 11/12/19 20:10 20:10 20:10 WBC 11.9 H RBC 3.29 L Hgb 10.4 L Hct 31.1 L MCV 94.5 H MCH 31.6 MCHC 33.4 RDW Std Deviation 47.7 H RDW Coeff of Concha 13.6 Plt Count 263 MPV 8.6 Immature Gran % (Auto) 0.300 Neut % (Auto) 81.5 H Lymph % (Auto) 9.4 L [place] % (Auto) 7.0 Eos % (Auto) 1.6 Baso % (Auto) 0.2 Absolute Neuts (auto) 9.7 H Absolute Lymphs (auto) 1.12 Nucleated RBC % 0 Toxic Granulation RARE Platelet Estimate ADEQUATE RBC Morphology N CHROM Anisocytosis RARE Macrocytosis RARE Ovalocytes RARE Sodium 132 L Potassium 4.7 Chloride 101 Carbon Dioxide 25.0 Anion Gap 6 BUN 22 H Creatinine 1.61 H Estim Creat Clear Calc 36.73 Est GFR (MDRD) Af Amer 54 L Est GFR (MDRD) Non-Af 44 L BUN/Creatinine Ratio 13.7 Glucose 142 H Lactic Acid 1.3 Calcium 9.0 Total Bilirubin 0.60 AST 12 L ALT 18 Alkaline Phosphatase 92 Total Protein 8.1 Albumin 3.0 L Globulin 5.1 H Albumin/Globulin Ratio 0.6 L Urine Color Urine Clarity Urine pH Ur Specific [place] Urine Protein Urine Glucose (UA) Urine Ketones Urine Occult Blood Urine Nitrite Urine Bilirubin Urine Urobilinogen Ur Leukocyte Esterase Urine RBC Urine WBC Ur Squamous Epith Cells Urine Bacteria Fine Granular Casts Urine Mucus 11/12/19 20:52 WBC RBC Hgb Hct MCV MCH MCHC RDW Std Deviation RDW Coeff of [place] Plt Count MPV Immature Gran % (Auto) Neut % (Auto) Lymph % (Auto) [place] % (Auto) Eos % (Auto) Baso % (Auto) Absolute Neuts (auto) Absolute Lymphs (auto) Nucleated RBC % Toxic Granulation Platelet Estimate RBC Morphology Anisocytosis Macrocytosis Ovalocytes Sodium Potassium Chloride Carbon Dioxide Anion Gap BUN Creatinine Estim Creat Clear Calc Est GFR (MDRD) Af Amer Est GFR (MDRD) Non-Af BUN/Creatinine Ratio Glucose Lactic Acid Calcium Total Bilirubin AST ALT Alkaline Phosphatase Total Protein Albumin Globulin Albumin/Globulin Ratio Urine Color Yellow Urine Clarity Cloudy Urine pH 6.0 Ur Specific [place] 1.015 Urine Protein 30 H Urine Glucose (UA) Normal Urine Ketones Negative Urine Occult Blood 50 H Urine Nitrite Negative Urine Bilirubin Negative Urine Urobilinogen Normal Ur Leukocyte Esterase 500 H Urine RBC 0-5 SEEN Urine WBC >100 SEEN Ur Squamous Epith Cells 0 SEEN Urine Bacteria 4+ Fine Granular Casts 0-5 SEEN Urine Mucus 0 SEEN - Medical Decision Making Patient is evaluated for 1 day of fever. His fever is 103 at home. Patient's only other symptom is some mild left lower back pain. This been present for a week. He is otherwise well-appearing. Patient is initially tachycardic and tachypneic. Patient does meet criteria for Sirs. Septic work-up is initiated. His lactate is normal at 1.3. White blood cell count is only minimally elevated. Remainder of his lab work is relatively unremarkable. Influenza screen is negative. Chest x-ray is not show any acute infiltrate. Patient's urinalysis does show 500 leukoesterase, 4+ bacteria and white blood cells. Is not clear if this is a true positive as patient does have a urostomy bag. Urine culture sent. I did discuss with patient's oncologist, Dr. Sr who agrees that admission for further monitoring and antibiotics would be indicated at this time. Blood cultures are pending. Patient started on IV Rocephin. He is initially given morphine for his back pain and then Tylenol. On reevaluation his pain is only slightly improved. He is been placed on a dose of Flexeril. Patient is [facility] at time of disposition. ED Disposition - Plan for ED Patient: Disposition: Acute Care Hospital [facility] Diagnosis: Sepsis, UTI (urinary tract infection)
[2019-11-12] MEDS: Morphine 4 MG/ML Syringe IV (21:04)
--- NOTE | 2019-11-12 21:10 | RAD_ITS ---
HISTORY: PT WITH FEVER TODAYPT HAS BLADDER CANCER WITH METS TO COLON, RECTUM AND RIGHT KIDNEYHX OF UROSTOMY AND COLOSTOMY PLACED 09/26 EXAM: XR Chest 2 Views COMPARISON: None FINDINGS: LINES/DEVICES: None. LUNGS: There are chronic interstitial changes. No pneumothorax. No consolidation or effusion. MEDIASTINUM AND CARDIOVASCULAR STRUCTURES: Cardiac silhouette not enlarged. Central airways and mediastinal contour are unremarkable. Athersclerotic plaque within the aortic arch. BONES AND SOFT TISSUES: Thoracic spondylosis. RAD/Chest PA and Lateral IMPRESSION: Chronic interestitial changes. No radiographic evidence of acute cardiopulmonary disease. at 2226 Reported and signed by: Larry Del Castillo MD Electronically Signed: Larry Del Castillo MD at 22:25 EST Tel , Service support ,
[2019-11-12 21:16] LABS: Color, Urine Yellow (Yellow); Glucose, Dipstick Normal (Normal); Ketone-Dipstick Negative (Negative); Leukocyte Esterase-Dipstick 500 /ul (Negative); Nitrite-Dipstick Negative (Negative); Occult Blood-Urine 50 /ul (Negative); Protein-Dipstick 30 mg/dl (Negative); Specific Gravity, Urine 1.015 (1.002-1.030); Urine Bilirubin Dipstick Negative (Negative); Urine Clarity Cloudy (Clear); Urine Urobilinogen Normal (Normal)
[2019-11-12 21:42] LABS: Bacteria 4+ /hpf (None Seen)
[2019-11-12 21:43] LABS: Fine Granular Cast- Urine 0-5 SEEN /lpf (0-5)
[2019-11-12 21:44] LABS: Red Blood Cells-Urine 0-5 SEEN /hpf (0-5)
[2019-11-12 21:46] LABS: White Blood Cells >100 SEEN /hpf (0-5)
[2019-11-12 22:01] VITALS: BP 139/71; PULSE 98; PULSE 99; RESP 17; RESP 19; TEMP 37; O2SAT 96
[2019-11-12] MEDS: Acetaminophen 500 MG Tablet 1000 MG PO (22:02)
--- NOTE | 2019-11-12 22:46 | HP.PCM_ITS ---
Problem List (1) Sepsis Status: Acute (2) UTI (urinary tract infection) Status: Acute (3) Debility Status: Chronic (4) Bladder cancer Status: Chronic (5) Bile duct injury Status: Chronic (6) Diabetes mellitus Status: Chronic (7) Hypertension Status: Chronic (8) Gross hematuria Status: Chronic (9) GERD (gastroesophageal reflux disease) Status: Chronic (10) Chronic kidney disease Status: Chronic History of Present Illness Date of Admission: 11/12/19 Chief Complaint: FEVER The patient is a 79 year old M with a significant history of metastatic bladder cancer status post colectomy with colostomy bag; right nephrectomy ; and with urostomy who presents emergency department with a fever. Reportedly at home his temperature was 102.7 Fahrenheit. Associated with symptoms is chills and rigors. Further, he had nausea and vomiting. At the emergency department patient was found to have tachycardia and tachypnea. His urine from the urostomy was abnormal. Urine culture and blood culture was obtained. Lactic acid was unremarkable. Patient was started on broad-spectrum antibiotics for sepsis secondary to probable UTI. Patient is due to start chemotherapy next week with Dr. rS, oncologist.. Emergency department doctor reported discussing the case with the Dr. Sr who recommended patient be admitted to the hospital. Past Medical History Past Medical History (Chronic Problems): Chronic Problems Debility (Chronic) Bladder cancer (Chronic) Bile duct injury (Chronic) Diabetes mellitus (Chronic) Hypertension (Chronic) Gross hematuria (Chronic) GERD (gastroesophageal reflux disease) (Chronic) Chronic kidney disease (Chronic) Allergies No Known Allergies Allergy (Verified 10/09/19 23:53) Home Medications: Ambulatory Orders Medication Instructions Recorded Metoprolol Succinate [Toprol Xl] 25 mg PO DAILY 06/11/18 Omeprazole 40 mg PO DAILY 06/11/18 metFORMIN HCl [Glucophage] 500 mg PO BIDCM 06/11/18 Amlodipine [Norvasc] 10 mg PO DAILY 09/30/19 Cyanocobalamin (Vitamin B-12) 1,000 mcg PO DAILY 09/30/19 [Vitamin B-12] Rosuvastatin Calcium 5 mg PO DAILY 09/30/19 Meclizine HCl [Antivert] 25 mg PO 4X/DAY PRN PRN #20 tab 10/21/19 Nut.tx.gluc.intoler,Lac-Fr,Soy 237 ml PO TIDCM 10/21/19 [Glucerna] Polyethylene Glycol 3350 [Miralax] 17 gm PO DAILY 10/21/19 Docusate Sodium [Colace] 100 mg PO DAILY 11/12/19 Surgical History: cataract, cholecystectomy - bile duct injury., - - TURBT x 3, Exploratory laparotomy, hepatojejunostomy with wound vac, liver resection, DCS: A-10C [place] Psychiatric History: No pertinent psych hx Smoking Status: Former smoker - *Family History Maternal History Items: Diabetes, Dementia Sibling History Items: COPD - Brother. Review of Systems Constitutional: Reports: Chills, Fever HEENT: Denies: Head Aches, Sinus Congestion, Sinus Drainage Cardiovascular: Denies: Chest Pain, Palpitations Respiratory: Denies: Cough, Shortness of breath at rest, Sputum production Gastrointestinal: Reports: Nausea, Vomiting. Denies: Abdominal Pain Genitourinary: Denies: Dysuria Musculoskeletal: Denies: Joint Pain, Joint Tenderness Skin: Denies: Rash, Wounds Neurological: Denies: Numbness, Tingling, Focal weakness Psychiatric: Denies: Anxiety, Depression, Homicidal Ideations, Suicidal Ideations Hematologic/ Lymphatic: Denies: Easy Bruising, Easy Bleeding VTE Information - Inpt Only VTE Present on Admission: No VTE Mechan Device Prophylaxis: None VTE Pharm Prophylaxis ordered?: Yes Patient Problems: Active and Suspected Problems Sepsis (Acute) UTI (urinary tract infection) (Acute) - Physical Exam Vitals/I&O's: Vital Signs Temp Pulse Resp BP Pulse Ox 98.6 F 99 19 H 139/71 H 96 11/12/19 22:01 11/12/19 22:01 11/12/19 22:01 11/12/19 22:01 11/12/19 22:01 Oxygen Delivery Method Room Air Weight: 67.585 kg Body Mass Index (BMI) 21.9 Intake and Output for Last 24 Hours 11/10/19 11/11/19 11/12/19 23:59 23:59 23:59 Intake Total 1000 / 1000 Balance 1000 / 1000 General: Alert, Oriented x3, Cooperative HEENT: Atraumatic, PERRLA, EOMI, Normocephalic Neck: Supple, No JVD, Negative Carotid Bruits Lungs: Clear to auscultation, Normal air movement, Tachypneic Cardiovascular: Normal S1, Normal S2, No murmurs, Tachycardic Abdomen: Bowel Sounds Present, Soft, Non Tender, - - Urostomy to right lower quadrant; colostomy at left lower quadrant. Extremities: No edema, Capillary Refill Less than 3 Seconds Skin: No rashes, No breakdown Musculoskeletal: No Tenderness to Palpation of Joints or Extremities Neurological: Cranial nerves II-XII grossly intact Psych/Mental Status: Normal Affect, Appropriate Microbiology Past 72 Hours 11/12/19 20:50 Mucosa - Nasopharyngeal Influenza Types A,B Direct FA (COSME) - Final Laboratory Results 11/12/19 20:10: WBC 11.9 H, RBC 3.29 L, Hgb 10.4 L, Hct 31.1 L, MCV 94.5 H, MCH 31.6, MCHC 33.4, RDW Std Deviation 47.7 H, RDW Coeff of Concha 13.6, Plt Count 263, MPV 8.6, Immature Gran % (Auto) 0.300, Neut % (Auto) 81.5 H, Lymph % (Auto) 9.4 L, [place] % (Auto) 7.0, Eos % (Auto) 1.6, Baso % (Auto) 0.2, Absolute Neuts (auto) 9.7 H, Absolute Lymphs (auto) 1.12, Nucleated RBC % 0, Toxic Granulation RARE, Platelet Estimate ADEQUATE, RBC Morphology N CHROM, Anisocytosis RARE, Macrocytosis RARE, Ovalocytes RARE 11/12/19 20:10: Sodium 132 L, Potassium 4.7, Chloride 101, Carbon Dioxide 25.0, Anion Gap 6, BUN 22 H, Creatinine 1.61 H, Estim Creat Clear Calc 36.73, Est GFR (MDRD) Af Amer 54 L, Est GFR (MDRD) Non-Af 44 L, BUN/Creatinine Ratio 13.7, Glucose 142 H, Calcium 9.0, Total Bilirubin 0.60, AST 12 L, ALT 18, Alkaline Phosphatase 92, Total Protein 8.1, Albumin 3.0 L, Globulin 5.1 H, Albumin/Globulin Ratio 0.6 L 11/12/19 20:10: Lactic Acid 1.3 11/12/19 20:52: Urine Color Yellow, Urine Clarity Cloudy, Urine pH 6.0, Ur Spe cific [place] 1.015, Urine Protein 30 H, Urine Glucose (UA) Normal, Urine Ketones Negative, Urine Occult Blood 50 H, Urine Nitrite Negative, Urine Lazaro irubin Negative, Urine Urobilinogen Normal, Ur Leukocyte Esterase 500 H, Urine RBC 0-5 SEEN, Urine WBC >100 SEEN, Ur Squamous Epith Cells 0 SEEN, Urine Bacteria 4+, Fine Granular Casts 0-5 SEEN, Urine Mucus 0 SEEN Current Medications Sodium Chloride () 1,000 mls @ 50 mls/hr IV .Q20H ONOFRE Last Admin: 11/12/19 22:26 Dose: Not Given Documented by: Ceftriaxone Sodium (Rocephin) 1 gm in 50 mls @ 100 mls/hr IV X1 ONE Stop: 11/12/19 23:10 Assessment/Plan All Active Problems Sepsis (Acute) UTI (urinary tract infection) (Acute) The patient is a 79 year old M with a significant history of metastatic bladder cancer status post colectomy with colostomy bag; and with urostomy who presents emergency department with a fever of 102.7 Fahrenheit; chills; rigors; nausea and vomiting and found to have tachycardia; tachypnea and abnormal urinalysis consistent with sepsis secondary to probable UTI. Sepsis due to probable UTI. Sirs criteria: Highest respiratory rate of 24; highest respiratory rate of 101. Abnormal urinalysis. Lactic acid 1.3. Influenza screen was unremarkable. Blood culture urine culture was obtained in the emergency department follow. Ceftriaxone was started emergency department; continued. Zofran for nausea or vomiting. Diabetes mellitus with hyperglycemia. Blood glucose on BMP was 142. Hold home metformin since patient is at risk of lactic acidosis. Accu-Chek with correction scale insulin ordered. KRISTIN on chronic kidney disease stage III CKD Likely from Diabetic nephropathy; metastatic bladder cancer and right nephrectomy. Stable Metastatic prostate cancer status post colectomy with colostomy bag; right nephrectomy; and with urostomy Follow-up outpatient after discharge. Received Flexeril for pain at the ED. Patient reports improved pain with Flexeril. Flexeril continued PRN. Hypertension Blood pressure is now within goal Metoprolol and amlodipine continued Hyperlipidemia Crestor continued Urostomy and colostomy Ostomy nurse consult. DVT prophylaxis Subcutaneous Lovenox ordered. Code Visit Inpatient E&M: 48325 Init Hosp L3
[2019-11-12] MEDS: cycloBENZAPRine HCl 10 MG Tablet PO (22:54)
--- NOTE | 2019-11-12 22:57 | ED.RN ---
flexeril given at 2254. imprivata not working. unable to scan off in mar
[2019-11-12] MEDS: Ceftriaxone 1 GM/50 ML BAG IV (23:20)
[2019-11-13] VITALS (18 sets, daily range): BP systolic 110–144; BP diastolic 59–76; PULSE 81–108; RESP 18; TEMP 36.9–38.8; O2SAT 94–100; BMI 22.6
[2019-11-13] MEDS: 0.9% Saline Lock 10 ML Syringe IV (01:07)
[2019-11-13] MEDS: 0.9% Normal Saline 1,000 ML 50 ML IV (01:07)
[2019-11-13] MEDS: Acetaminophen 325 MG Tablet 650 MG PO ×4 (03:57→22:14)
[2019-11-13 05:38] LABS: Absolute Lymphocyte Count 0.77 X10^3/uL (0.83-4.51); Absolute Neutrophil Count 7.5 X10^3/uL (2.0-7.7); Basophil# 0.02 X10^3/uL; Basophil% 0.2 % (0-1); Eosinophil# 0.02 X10^3/uL; Eosinophils% 0.2 % (0-5); Hematocrit 26.4 % (40-54); Hemoglobin 8.8 g/dL (13.0-16.5); Lymphocyte # 0.77 X10^3/ul (4.0); Lymphocyte % 8.5 % (19-41); Mean Corp Hgb Conc 33.3 g/dL (32-36); Mean Corpuscular Hgb 31.2 pg (27.0-32.0); Mean Corpuscular Volume 93.6 fL (80-94); Mean Platelet Vol. 8.8 fl (6.2-12.0); Monocyte# 0.69 X10^3/uL; Monocyte% 7.6 % (0-10); NRBC Flagged by Analyzer 0 % (0-5); Neutrophil # 7.53 X10^3/uL (2.7-7.7); Neutrophil % 83.1 % (47-70); Platelet Count 197 K/mm3 (150-450); RBC Distribution Width CV 13.5 % (11.6-14.6); RBC Distribution Width SD 46.1 fl (35.1-43.9); Red Blood Count 2.82 M/mm3 (4.6-6.2); White Blood Count 9.1 K/mm3 (4.4-11.0)
[2019-11-13 06:02] LABS: Anion Gap 7 (5-15); BUN 21 mg/dL (7-18); BUN/Creat Ratio 13.9 RATIO (10-20); Calcium,Total 8.2 mg/dL (8.5-10.1); Chloride 101 mmol/L (98-107); Creatinine, Serum 1.51 mg/dL (0.70-1.30); EST Glomerular Filtration Rate 48 mL/min (>60); Est Glom Filt Rate - Afr Amer 58 mL/min (>60); Estimated Creatinine Clearance 40.22 ml/min; Glucose 148 mg/dL (74-106); Potassium 4.5 mmol/L (3.5-5.1); Sodium Level 131 mmol/L (136-145)
[2019-11-13] MEDS: cycloBENZAPRine HCl 10 MG Tablet PO (06:43)
[2019-11-13] MEDS: Insulin Lispro 100 UNIT/ML INSULN.PEN SC ×2 (06:43→12:35)
[2019-11-13 06:45] LABS: Bedside Glucose 184 mg/dL (70-110)
[2019-11-13] MEDS: Docusate Sodium 100 MG Capsule PO (09:46)
[2019-11-13] MEDS: Enoxaparin 40 MG/0.4 ML Syringe SC (09:46)
[2019-11-13] MEDS: Polyethylene Glycol 3350 17 GM PACKET PO (09:46)
[2019-11-13] MEDS: amLODIPine 10 MG Tablet PO ×2 (09:47)
[2019-11-13] MEDS: Pantoprazole Sodium 40 MG Tablet PO (09:47)
[2019-11-13] MEDS: Metoprolol(XL)Succ 25 MG Tablet PO (09:48)
--- NOTE | 2019-11-13 11:56 | PCM.PN.HOSP ---
<Waylon Guzman - Last Filed: 11/13/19 11:56> Patient Problems: Active and Suspected Problems Sepsis (Acute) UTI (urinary tract infection) (Acute) Reason for Visit: UTI Subjective: Complains of subjective fevers, and has a temp of 101.8. No abd pain. No SOB/cough. resting comfortably in bed NAD. Vitals/I&O's: Vital Signs Temp Pulse Resp BP Pulse Ox 101.8 F H 108 H 18 144/76 H 96 11/13/19 09:52 11/13/19 10:00 11/13/19 09:52 11/13/19 09:52 11/13/19 09:52 Oxygen Delivery Method Room Air Weight: 153 lb 0.013 oz Body Mass Index (BMI) 22.6 Intake and Output for Last 24 Hours 11/11/19 11/12/19 11/13/19 23:59 23:59 23:59 Intake Total 1050 / 1050 Output Total 550 / 550 Balance 1050 / 1050 -550 / -550 General: Alert, Oriented x3, Cooperative HEENT: Atraumatic, PERRLA, EOMI, Normocephalic Neck: Supple, No JVD, Negative Carotid Bruits Lungs: Clear to auscultation, Normal air movement Cardiovascular: Regular rate, No murmurs Abdomen: Bowel Sounds Present, Soft, Non Tender Extremities: No edema, Capillary Refill Less than 3 Seconds Skin: No rashes, No breakdown Musculoskeletal: No Tenderness to Palpation of Joints or Extremities Neurological: Cranial nerves II-XII grossly intact Psych/Mental Status: Normal Affect, Appropriate, Alert and oriented to time, place, person, mood and affect Microbiology Past 72 Hours 11/12/19 20:52 Urine, Nephrostomy Urine 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 11/12/19 20:50 Mucosa - Nasopharyngeal Influenza Types A,B Direct FA (COSME) - Final Laboratory Results 11/12/19 20:10: WBC 11.9 H, RBC 3.29 L, Hgb 10.4 L, Hct 31.1 L, MCV 94.5 H, MCH 31.6, MCHC 33.4, RDW Std Deviation 47.7 H, RDW Coeff of Concha 13.6, Plt Count 263, MPV 8.6, Immature Gran % (Auto) 0.300, Neut % (Auto) 81.5 H, Lymph % (Auto) 9.4 L, [place] % (Auto) 7.0, Eos % (Auto) 1.6, Baso % (Auto) 0.2, Absolute Neuts (auto) 9.7 H, Absolute Lymphs (auto) 1.12, Nucleated RBC % 0, Toxic Granulation RARE, Platelet Estimate ADEQUATE, RBC Morphology N CHROM, Anisocytosis RARE, Macrocytosis RARE, Ovalocytes RARE 11/12/19 20:10: Sodium 132 L, Potassium 4.7, Chloride 101, Carbon Dioxide 25.0, Anion Gap 6, BUN 22 H, Creatinine 1.61 H, Estim Creat Clear Calc 36.73, Est GFR (MDRD) Af Amer 54 L, Est GFR (MDRD) Non-Af 44 L, BUN/Creatinine Ratio 13.7, Glucose 142 H, Calcium 9.0, Total Bilirubin 0.60, AST 12 L, ALT 18, Alkaline Phosphatase 92, Total Protein 8.1, Albumin 3.0 L, Globulin 5.1 H, Albumin/Globulin Ratio 0.6 L 11/12/19 20:10: Lactic Acid 1.3 11/12/19 20:52: Urine Color Yellow, Urine Clarity Cloudy, Urine pH 6.0, Ur Specific [place] 1.015, Urine Protein 30 H, Urine Glucose (UA) Normal, Urine Ketones Negative, Urine Occult Blood 50 H, Urine Nitrite Negative, Urine Bilirubin Negative, Urine Urobilinogen Normal, Ur Leukocyte Esterase 500 H, Urine RBC 0-5 SEEN, Urine WBC >100 SEEN, Ur Squamous Epith Cells 0 SEEN, Urine Bacteria 4+, Fine Granular Casts 0-5 SEEN, Urine Mucus 0 SEEN 11/13/19 05:05: WBC 9.1, RBC 2.82 L, Hgb 8.8 L, Hct 26.4 L, MCV 93.6, MCH 31.2, MCHC 33.3, RDW Std Deviation 46.1 H, RDW Coeff of Concha 13.5, Plt Count 197, MPV 8.8, Immature Gran % (Auto) 0.400, Neut % (Auto) 83.1 H, Lymph % (Auto) 8.5 L, [place] % (Auto) 7.6, Eos % (Auto) 0.2, Baso % (Auto) 0.2, Absolute Neuts (auto) 7.5, Absolute Lymphs (auto) 0.77 L, Nucleated RBC % 0 11/13/19 05:05: Sodium 131 L, Potassium 4.5, Chloride 101, Carbon Dioxide 23.0, Anion Gap 7, BUN 21 H, Creatinine 1.51 H, Estim Creat Clear Calc 40.22, Est GFR (MDRD) Af Amer 58 L, Est GFR (MDRD) Non-Af 48 L, BUN/Creatinine Ratio 13.9, Glucose 148 H, Calcium 8.2 L 11/13/19 06:37: POC Glucose 184 H Current Medications Acetaminophen (Tylenol) 650 mg PO Q6H PRN PRN PRN Reason: fever > 100.7F Last Admin: 11/13/19 09:50 Dose: 650 mg Documented by: Amlodipine Besylate (Norvasc) 10 mg PO DAILY [facility] Last Admin: 11/13/19 09:47 Dose: 10 mg Documented by: Atorvastatin Calcium (Lipitor) 10 mg PO QHS ONOFRE Cyclobenzaprine HCl (Flexeril) 10 mg PO Q8H PRN PRN PRN Reason: Pain -07/14 Last Admin: 11/13/19 06:43 Dose: 10 mg Documented by: Dextrose (D50w Syringe) 0 gm IV X1 PRN; Protocol PRN Reason: Hypoglycemia Docusate Sodium (Colace) 100 mg PO DAILY [facility] Last Admin: 11/13/19 09:46 Dose: 100 mg Documented by: Enoxaparin Sodium (Lovenox) 40 mg SC DAILY [facility] Last Admin: 11/13/19 09:46 Dose: 40 mg Documented by: Glucagon () 1 mg IM .X1 PRN PRN Reason: Hypoglycemia Sodium Chloride () 1,000 mls @ 50 mls/hr IV .Q20H [facility] Last Admin: 11/13/19 01:07 Dose: 50 mls/hr Documented by: Sodium Chloride () 250 mls @ 15 mls/hr IV .[id number] PRN PRN Reason: Saline Flush Sodium Chloride () 250 mls @ 15 mls/hr IV .[id number] PRN PRN Reason: Additional IVPB Infusion Meropenem 1 gm/ Sodium (Chloride) 120 mls @ 33 mls/hr IV Q12 [facility] Insulin Human Lispro (Humalog Kwikpen (Bkc)) 0 unit SC ACHS [facility]; Protocol Last Admin: 11/13/19 06:43 Dose: 1 u Documented by: Meclizine HCl (Antivert) 25 mg PO 4X/DAY PRN PRN PRN Reason: DIZZINESS Metoprolol Succinate (Toprol Xl (Beta Lee)) 25 mg PO DAILY [facility] Last Admin: 11/13/19 09:48 Dose: 25 mg Documented by: Ondansetron HCl (Zofran) 4 mg IV Q8H PRN PRN PRN Reason: NAUSEA/VOMITING Pantoprazole Sodium (Protonix) 40 mg PO DAILY [facility] Last Admin: 11/13/19 09:47 Dose: 40 mg Documented by: Polyethylene Glycol (Miralax) 17 gm PO DAILY [facility] Last Admin: 11/13/19 09:46 Dose: 17 gm Documented by: Sodium Chloride () 10 - 40 ml IV UD PRN PRN Reason: SALINE FLUSH Last Admin: 11/13/19 01:07 Dose: 10 ml Documented by: STROKE Vital Signs/Narrative: Vital Signs Temp Pulse Resp BP Pulse Ox 11/13/19 10:00 108 H 11/13/19 09:52 101.8 F H 98 18 144/76 H 96 11/13/19 09:48 98 144/76 H Medical Necessity - Tobacco Use Smoking Status: Former smoker Assessment/Plan All Active Problems Sepsis (Acute) UTI (urinary tract infection) (Acute) 1. Acute sepsis 2/2 UTI - abx changed to meropenem with hx of Bacteroides +ESBL. ID consulted. Follow blood cultures. Still febrile. UTIs probably due to urostomy. Obtain records from most recent visit to [facility]. CXR neg. 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 Flu screen neg. 2. Urostomy / colostomy - present due to hx metastatic prostate cancer. wound care for ostomy care. 3. DMt2 - metformin held. SSI. 4. KRISTIN on CKDIII - s/p right nephrectomy, KRISTIN probably 2/2 sespsis. IV fluids. 5. HTN - stable. 6. Normocytic anemia - 10.4-->8.8. Will trend. UA with occult blood. 7. HLD - statin DVT ppx: lovenox This patient was seen by Waylon Guzman PA-C under the supervision of Dr. Ford. 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 11/12/19 20:50 Mucosa - Nasopharyngeal Influenza Types A,B Direct FA (COSME) - Final Laboratory Results 11/12/19 20:10: WBC 11.9 H, RBC 3.29 L, Hgb 10.4 L, Hct 31.1 L, MCV 94.5 H, MCH 31.6, MCHC 33.4, RDW Std Deviation 47.7 H, RDW Coeff of Concha 13.6, Plt Count 263, MPV 8.6, Immature Gran % (Auto) 0.300, Neut % (Auto) 81.5 H, Lymph % (Auto) 9.4 L, [place] % (Auto) 7.0, Eos % (Auto) 1.6, Baso % (Auto) 0.2, Absolute Neuts (auto) 9.7 H, Absolute Lymphs (auto) 1.12, Nucleated RBC % 0, Toxic Granulation RARE, Platelet Estimate ADEQUATE, RBC Morphology N CHROM, Anisocytosis RARE, Macrocytosis RARE, Ovalocytes RARE 11/12/19 20:10: Sodium 132 L, Potassium 4.7, Chloride 101, Carbon Dioxide 25.0, Anion Gap 6, BUN 22 H, Creatinine 1.61 H, Estim Creat Clear Calc 36.73, Est GFR (MDRD) Af Amer 54 L, Est GFR (MDRD) Non-Af 44 L, BUN/Creatinine Ratio 13.7, Glucose 142 H, Calcium 9.0, Total Bilirubin 0.60, AST 12 L, ALT 18, Alkaline Phosphatase 92, Total Protein 8.1, Albumin 3.0 L, Globulin 5.1 H, Albumin/Globulin Ratio 0.6 L 11/12/19 20:10: Lactic Acid 1.3 11/12/19 20:52: Urine Color Yellow, Urine Clarity Cloudy, Urine pH 6.0, Ur Specific [place] 1.015, Urine Protein 30 H, Urine Glucose (UA) Normal, Urine Ketones Negative, Urine Occult Blood 50 H, Urine Nitrite Negative, Urine Bilirubin Negative, Urine Urobilinogen Normal, Ur Leukocyte Esterase 500 H, Urine RBC 0-5 SEEN, Urine WBC >100 SEEN, Ur Squamous Epith Cells 0 SEEN, Urine Bacteria 4+, Fine Granular Casts 0-5 SEEN, Urine Mucus 0 SEEN 11/13/19 05:05: WBC 9.1, RBC 2.82 L, Hgb 8.8 L, Hct 26.4 L, MCV 93.6, MCH 31.2, MCHC 33.3, RDW Std Deviation 46.1 H, RDW Coeff of [place]cha 13.5, Plt Count 197, MPV 8.8, Immature Gran % (Auto) 0.400, Neut % (Auto) 83.1 H, Lymph % (Auto) 8.5 L, [place] % (Auto) 7.6, Eos % (Auto) 0.2, Baso % (Auto) 0.2, Absolute Neuts (auto) 7.5, Absolute Lymphs (auto) 0.77 L, Nucleated RBC % 0 11/13/19 05:05: Sodium 131 L, Potassium 4.5, Chloride 101, Carbon Dioxide 23.0, Anion Gap 7, BUN 21 H, Creatinine 1.51 H, Estim Creat Clear Calc 40.22, Est GFR (MDRD) Af Amer 58 L, Est GFR (MDRD) Non-Af 48 L, BUN/Creatinine Ratio 13.9, Glucose 148 H, Calcium 8.2 L 11/13/19 06:37: POC Glucose 184 H Current Medications Acetaminophen (Tylenol) 650 mg PO Q6H PRN PRN PRN Reason: fever > 100.7F Last Admin: 11/13/19 09:50 Dose: 650 mg Documented by: Amlodipine Besylate (Norvasc) 10 mg PO DAILY ONO[facility]RE Last Admin: 11/13/19 09:47 Dose: 10 mg Documented by: Atorvastatin Calcium (Lipitor) 10 mg PO QHS [facility] Cyclobenzaprine HCl (Flexeril) 10 mg PO Q8H PRN PRN PRN Reason: Pain -07/14 Last Admin: 11/13/19 06:43 Dose: 10 mg Documented by: Dextrose (D50w Syringe) 0 gm IV X1 PRN; Protocol PRN Reason: Hypoglycemia Docusate Sodium (Colace) 100 mg PO DAILY [facility] Last Admin: 11/13/19 09:46 Dose: 100 mg Documented by: Enoxaparin Sodium (Lovenox) 40 mg SC DAILY [facility] Last Admin: 11/13/19 09:46 Dose: 40 mg Documented by: Glucagon () 1 mg IM .X1 PRN PRN Reason: Hypoglycemia Sodium Chloride () 1,000 mls @ 50 mls/hr IV .Q20H [facility] Last Admin: 11/13/19 01:07 Dose: 50 mls/hr Documented by: Sodium Chloride () 250 mls @ 15 mls/hr IV .[id number] PRN PRN Reason: Saline Flush Sodium Chloride () 250 mls @ 15 mls/hr IV .[id number] PRN PRN Reason: Additional IVPB Infusion Meropenem 1 gm/ Sodium (Chloride) 120 mls @ 33 mls/hr IV Q12 [facility] Insulin Human Lispro (Humalog Kwikpen (Bkc)) 0 unit SC ACHS [facility]; Protocol Last Admin: 11/13/19 06:43 Dose: 1 u Documented by: Meclizine HCl (Antivert) 25 mg PO 4X/DAY PRN PRN PRN Reason: DIZZINESS Metoprolol Succinate (Toprol Xl (Beta Lee)) 25 mg PO DAILY [facility] Last Admin: 11/13/19 09:48 Dose: 25 mg Documented by: Ondansetron HCl (Zofran) 4 mg IV Q8H PRN PRN PRN Reason: NAUSEA/VOMITING Pantoprazole Sodium (Protonix) 40 mg PO DAILY [facility] Last Admin: 11/13/19 09:47 Dose: 40 mg Documented by: Polyethylene Glycol (Miralax) 17 gm PO DAILY [facility] Last Admin: 11/13/19 09:46 Dose: 17 gm Documented by: Sodium Chloride () 10 - 40 ml IV UD PRN PRN Reason: SALINE FLUSH Last Admin: 11/13/19 01:07 Dose: 10 ml Documented by: STROKE Vital Signs/Narrative: Vital Signs Temp Pulse Resp BP Pulse Ox 11/13/19 10:00 108 H 11/13/19 09:52 101.8 F H 98 18 144/76 H 96 11/13/19 09:48 98 144/76 H Assessment/Plan Hospitalist note: I am seeing this patient in conjunction with Waylon Guzman. I independently seen and examined the patient. Progress note above, laboratory data and imaging studies reviewed and I concur with the above treatment plan. Today, patient still complains of fever, maximum was 101.8 Fahrenheit. He complained of vague right low back pain which has been intermittent. This patient had a complicated recent history after he went for laparoscopic cystectomy, prostatectomy and colectomy with colostomy. No documents available about details of surgery and why patient had the surgery. After surgery back on September,, patient was admitted to TCU, developed fever and bacteremia afterwards and he was transferred back to [facility]. He was treated with IV meropenem. He had a CT scan abdomen and pelvis with oral contrast on October 09, 2019, found to have fluid collection within the right renal fossa which could be due to abscess. According to the patient, he had a drain placed at [facility]. Again, no documents available at this time. Patient is febrile, slight tachycardia, blood pressure stable, pulse ox is 98% on room air. - Physical Exam General: Alert, Oriented x3, Cooperative, No apparent distress. HEENT: Atraumatic, PERRLA, EOMI. Neck: Supple, No JVD, Negative Carotid Bruits, Trachea Midline, Thyroid Normal. Lungs: Clear to auscultation, Normal air movement, No rhonchi, No wheeze, No rales. Cardiovascular: Regular rate, Regular Rhythm, Normal S1, Normal S2, PMI Normal. Abdomen: Bowel Sounds Present, Soft, Non Tender, Non-Distended, colostomy bag in place, urostomy bag in place, no Hepato-splenomegaly. Extremities: No clubbing, No cyanosis, No edema Skin: No rashes, No breakdown Neurological: Cranial nerves are intact, neuro grossly intact. Assessment and plan: #1 acute sepsis: Likely due to complicated cystitis in addition to probable bacteremia. Patient had recent history of bacteroids bacteremia after his surgery which was done on September,. Transitioned to IV meropenem. He still having spikes of fever, blood pressure stable. Slight tachycardia. Nasal swab for influenza a and B were negative. Urine culture revealed gram-negative rods, final is pending. Blood cultures pending. Plan: Continue IV meropenem, infectious disease consult. #2 recent history of bacteremia: Blood culture on October 08, 2019 revealed bacteroids fragilis, patient was treated with IV meropenem. Apparently, he had questionable intra-abdominal abscess for which she was transferred to [facility]. According to the patient, he had drain placed and was removed. Plan: Continue meropenem, obtain records from [facility], infectious disease consult as above, may need to get CT scan abdomen and pelvis with IV and p.o. contrast. #3 recent laparoscopic cystectomy, prostatectomy, colectomy: Patient had bladder cancer, not sure why he had colectomy at the same time. Status post urostomy and colostomy. Plan as above. #4 renal insufficiency: His kidney function has been trending up since September,. Today's creatinine is 1.51 which is close to his baseline creatinine the last couple of months. Unknown if he has chronic kidney disease or not. Plan to monitor, continue IV fluids, repeat BMP tomorrow morning. #5 other chronic medical problems: Continue current medications as above. This note was generated with [employer] software. It may contain incorrect words, spelling, and punctuation that were not noted in checking the note before signing. Code Visit Inpatient E&M: 92296 Subs Hosp L2
--- NOTE | 2019-11-13 12:23 | CT_ITS ---
STUDY: CT ABDOMEN AND PELVIS WITH CONTRAST REASON FOR EXAM: Male, 79 years old. ABSCESS RADIATION DOSAGE (If Supplied By Facility): CTDIvol = ( 12.53 ) mGy, DLP = ( 618.32 ) mGycm TECHNIQUE: Transaxial images were obtained from the dome of the diaphragm to the symphysis pubis with grossly normal stomach. No dilated loops of small bowel or evidence for obstruction. oral contrast. Oral and amp; IV Gastrografin and amp; 100mL Isovue-300 was administered. Sagittal and coronal images were reconstructed. Individualized dose optimization techniques were used for this CT. COMPARISON: 10/09/2019. FINDINGS: Limited views through the lower chest show scarring or subsegmental atelectasis in both lung bases. Intrabiliary air again seen in the liver indicating patulous sphincter of Ricardo. No evidence of liver mass. Previous cholecystectomy. Atrophy of the pancreas. Pancreas and adrenal glands are unremarkable. Right kidney has been removed. Left kidney shows mild hydronephrosis and hydroureter. There is increased enhancement and thickening of the shaikh of the left renal pelvis and ureter which is slightly distended, extending down to the ileal conduit. These findings can be seen with pyelonephritis. There are no dilated loops of bowel or evidence for obstruction. Normal caliber large bowel, filled with fecal material. Grossly unremarkable appearance of left colostomy although in the abdominal wall at this level and there is fluid and air densities which could represent abscess. There has been cystectomy and there is an ileostomy extending through the right anterior abdominal wall, within which there are catheters. Calcified aorta without aneurysm. Cannot exclude retroperitoneal adenopathy. There is a nonspecific localized fluid collection filling the pelvis and extending cephalad into the right. It displaces bowel loops. It measures 21 cm greatest dimension. It displaces bowel loops from the pelvis. It is significantly larger than previous exam and is of uncertain etiology, question urinoma. No definite abscesses. There are diffuse degenerative changes of the visualized lumbar spine. CT/Abdomen/Pelvis WITH Contrast IMPRESSION: Since prior exam patient has had marked increase in a loculated fluid collection filling the pelvis and extending up to the right, 21 cm greatest dimension. Uncertain etiology but possibly urinoma. No definite abscesses within the abdomen or pelvis. Cannot exclude abscess of the left abdominal wall related to a colostomy. Electronically Signed: Anibal Razo MD at 18:50 EST , Service support ,
[2019-11-13 12:36] LABS: Bedside Glucose 188 mg/dL (70-110)
[2019-11-13] MEDS: Acetylcysteine (Mucomyst Oral) 20% SOLN 600 MG PO ×2 (13:21→22:13)
[2019-11-13] MEDS: 0.9% Normal Saline 1,000 ML 100 ML IV (13:26)
[2019-11-13 16:11] LABS: Bedside Glucose 112 mg/dL (70-110)
[2019-11-13] MEDS: Atorvastatin Calcium 10 MG Tablet PO (22:11)
[2019-11-13 22:26] LABS: Bedside Glucose 126 mg/dL (70-110)
[2019-11-14] VITALS (7 sets, daily range): BP systolic 133–136; BP diastolic 66–69; PULSE 86–100; RESP 18; TEMP 37.2–37.8; O2SAT 98
[2019-11-14] MEDS: 0.9% Normal Saline 1,000 ML 100 ML IV (03:00)
[2019-11-14 06:04] LABS: Absolute Lymphocyte Count 1.16 X10^3/uL (0.83-4.51); Absolute Neutrophil Count 5.4 X10^3/uL (2.0-7.7); Basophil# 0.01 X10^3/uL; Basophil% 0.1 % (0-1); Eosinophil# 0.06 X10^3/uL; Eosinophils% 0.8 % (0-5); Hematocrit 28.3 % (40-54); Hemoglobin 9.5 g/dL (13.0-16.5); Lymphocyte # 1.16 X10^3/ul (4.0); Lymphocyte % 15.8 % (19-41); Mean Corp Hgb Conc 33.6 g/dL (32-36); Mean Corpuscular Hgb 31.3 pg (27.0-32.0); Mean Corpuscular Volume 93.1 fL (80-94); Monocyte# 0.75 X10^3/uL; Monocyte% 10.2 % (0-10); NRBC Flagged by Analyzer 0 % (0-5); Neutrophil # 5.36 X10^3/uL (2.7-7.7); Neutrophil % 72.8 % (47-70); Platelet Count 229 K/mm3 (150-450); RBC Distribution Width CV 13.4 % (11.6-14.6); RBC Distribution Width SD 45.3 fl (35.1-43.9); Red Blood Count 3.04 M/mm3 (4.6-6.2); White Blood Count 7.4 K/mm3 (4.4-11.0)
[2019-11-14 06:36] LABS: Bedside Glucose 125 mg/dL (70-110)
[2019-11-14 06:36] LABS: Anion Gap 5 (5-15); BUN 17 mg/dL (7-18); BUN/Creat Ratio 11.5 RATIO (10-20); Calcium,Total 8.6 mg/dL (8.5-10.1); Chloride 104 mmol/L (98-107); Creatinine, Serum 1.48 mg/dL (0.70-1.30); EST Glomerular Filtration Rate 49 mL/min (>60); Est Glom Filt Rate - Afr Amer 59 mL/min (>60); Estimated Creatinine Clearance 41.03 ml/min; Glucose 121 mg/dL (74-106); Potassium 4.4 mmol/L (3.5-5.1); Sodium Level 135 mmol/L (136-145)
[2019-11-14] MEDS: Docusate Sodium 100 MG Capsule PO (09:03)
[2019-11-14] MEDS: Polyethylene Glycol 3350 17 GM PACKET PO (09:03)
[2019-11-14] MEDS: Pantoprazole Sodium 40 MG Tablet PO (09:03)
[2019-11-14] MEDS: Enoxaparin 40 MG/0.4 ML Syringe SC (09:03)
[2019-11-14] MEDS: Acetylcysteine (Mucomyst Oral) 20% SOLN 600 MG PO (09:08)
[2019-11-14] MEDS: Metoprolol(XL)Succ 25 MG Tablet PO (09:24)
[2019-11-14 11:36] LABS: Bedside Glucose 139 mg/dL (70-110)
--- NOTE | 2019-11-14 13:40 | PCM.DC.SUM ---
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 Uncertain etiology but possibly urinoma. No definite abscesses within the abdomen or pelvis. Cannot exclude abscess of the left abdominal wall related to a colostomy. RAD/Chest PA and Lateral IMPRESSION: Chronic interestitial changes. No radiographic evidence of acute cardiopulmonary disease. Consultations 11/13/19 02:14 Consult: Onc/Wound/director public service Routine Comment: Reason for Consult:: Patient colostomy and urostomy. Operations: None Procedures: None Summary of Care Provided: Hospital Course: The patient is a 79 year old M with pmhx of prostate cancer with mets to the colon, bladder, kidney s/p nephrectomy, colectomy, and cystectomy, who [facility] concern for pelvic abscess, where he was treated with a JOHNNY drain and antibiotics per the pt. He came to the ER with c/o fever. He was found to have a fever, +UA, tachycardia, tachypnea, and leukocytosis. He had elevated Creatinine. He was admitted to the [facility] surg floor for sepsis from UTI and KRISTIN. He was started on meropenem for a hx of Bacteroides +ESBL. He complained of abdominal pain the next day and a CT abd/pelvis was obtained. This showed a 21 cm fluid collection of unclear etiology. The patient was felt to need evaluation by his previous surgeons. Arrangements were made for him to be transferred to [facility]. Urine cultures have come back showing Klebsiella pneumoniae. Blood cultures are pending at this time. He was discharged to [facility] in stable condition. This patient was seen by Waylon Guzman PA-C under the supervision of Dr. Kyle. [] Patient Problems: Active and Suspected Problems Sepsis (Acute) UTI (urinary tract infection) (Acute) - Physical Exam Vitals/I&O's: Vital Signs Temp Pulse Resp BP Pulse Ox 99.0 F 100 18 133/66 H 98 11/14/19 11:32 11/14/19 10:39 11/14/19 10:39 11/14/19 10:39 11/14/19 10:39 Oxygen Delivery Method Room Air Weight: 153 lb 0.013 oz Body Mass Index (BMI) 22.6 Intake and Output for Last 24 Hours 11/12/19 11/13/19 11/14/19 23:59 23:59 23:59 Intake Total 1050 / 1050 2412.50 / 2412.50 945.00 / 945.00 Output Total 1100 / 1100 1700 / 1700 Balance 1050 / 1050 1312.50 / 1312.50 -755.00 / -755.00 General: Alert, Oriented x3, Cooperative HEENT: Atraumatic, PERRLA, EOMI, Normocephalic Neck: Supple, No JVD, Negative Carotid Bruits Lungs: Clear to auscultation, Normal air movement Cardiovascular: Regular rate, No murmurs Abdomen: Bowel Sounds Present, Soft, Non Tender Extremities: No edema, Capillary Refill Less than 3 Seconds Skin: No rashes, No breakdown Musculoskeletal: No Tenderness to Palpation of Joints or Extremities Neurological: Cranial nerves II-XII grossly intact Psych/Mental Status: Normal Affect, Appropriate, Alert and oriented to time, place, person, mood and affect Microbiology Past 72 Hours 11/12/19 20:52 Urine, Nephrostomy Urine Culture - Final Klebsiella pneumoniae sp pneum 11/12/19 20:50 Mucosa - Nasopharyngeal Influenza Types A,B Direct FA (COSME) - Final Laboratory Results 11/13/19 16:07: POC Glucose 112 H 11/13/19 22:18: POC Glucose 126 H 11/14/19 05:14: WBC 7.4, RBC 3.04 L, Hgb 9.5 L, Hct 28.3 L, MCV 93.1, MCH 31.3, MCHC 33.6, RDW Std Deviation 45.3 H, RDW Coeff of Concha 13.4, Plt Count 229, MPV 9.0, Immature Gran % (Auto) 0.300, Neut % (Auto) 72.8 H, Lymph % (Auto) 15.8 L, Lewis % (Auto) 10.2 H, Eos % (Auto) 0.8, Baso % (Auto) 0.1, Absolute Neuts (auto) 5.4, Absolute Lymphs (auto) 1.16, Nucleated RBC % 0 11/14/19 05:14: Sodium 135 L, Potassium 4.4, Chloride 104, Carbon Dioxide 26.0, Anion Gap 5, BUN 17, Creatinine 1.48 H, Estim Creat Clear Calc 41.03, Est GFR (MDRD) Af Amer 59 L, Est GFR (MDRD) Non-Af 49 L, BUN/Creatinine Ratio 11.5, Glucose 121 H, Calcium 8.6 11/14/19 06:27: POC Glucose 125 H 11/14/19 11:30: POC Glucose 139 H Current Medications Acetaminophen (Tylenol) 650 mg PO Q6H PRN PRN PRN Reason: fever > 100.7F Last Admin: 11/13/19 22:14 Dose: 650 mg Documented by: Acetylcysteine (Mucomyst) 600 mg PO BID [facility] Stop: 11/14/19 22:01 Last Admin: 11/14/19 09:08 Dose: 600 mg Documented by: Amlodipine Besylate (Norvasc) 10 mg PO DAILY [facility] Last Admin: 11/13/19 09:47 Dose: 10 mg Documented by: Atorvastatin Calcium (Lipitor) 10 mg PO QHS [facility] Last Admin: 11/13/19 22:11 Dose: 10 mg Documented by: Cyclobenzaprine HCl (Flexeril) 10 mg PO Q8H PRN PRN PRN Reason: Pain -07/14 Last Admin: 11/13/19 06:43 Dose: 10 mg Documented by: Dextrose (D50w Syringe) 0 gm IV X1 PRN; Protocol PRN Reason: Hypoglycemia Docusate Sodium (Colace) 100 mg PO DAILY [facility] Last Admin: 11/14/19 09:03 Dose: 100 mg Documented by: Enoxaparin Sodium (Lovenox) 40 mg SC DAILY [facility] Last Admin: 11/14/19 09:03 Dose: 40 mg Documented by: Glucagon () 1 mg IM .X1 PRN PRN Reason: Hypoglycemia Sodium Chloride () 250 mls @ 15 mls/hr IV .[id number] PRN PRN Reason: Saline Flush Sodium Chloride () 250 mls @ 15 mls/hr IV .[id number] PRN PRN Reason: Additional IVPB Infusion Meropenem 1 gm/ Sodium (Chloride) 120 mls @ 33 mls/hr IV Q12 ONOFRE Last Infusion: 11/14/19 12:41 Dose: Infused Documented by: Sodium Chloride () 1,000 mls @ 100 mls/hr IV .Q10H [facility] Last Infusion: 11/14/19 12:41 Dose: 100 mls/hr Documented by: Insulin Human Lispro (Humalog Kwikpen (Bkc)) 0 unit SC ACHS [facility]; Protocol Last Admin: 11/14/19 11:33 Dose: Not Given Documented by: Meclizine HCl (Antivert) 25 mg PO 4X/DAY PRN PRN PRN Reason: DIZZINESS Metoprolol Succinate (Toprol Xl (Beta Lee)) 25 mg PO DAILY [facility] Last Admin: 11/14/19 09:24 Dose: 25 mg Documented by: Ondansetron HCl (Zofran) 4 mg IV Q8H PRN PRN PRN Reason: NAUSEA/VOMITING Pantoprazole Sodium (Protonix) 40 mg PO DAILY [facility] Last Admin: 11/14/19 09:03 Dose: 40 mg Documented by: Polyethylene Glycol (Miralax) 17 gm PO DAILY [facility] Last Admin: 11/14/19 09:03 Dose: 17 gm Documented by: Simethicone (Mylicon) 80 mg PO TIDPC [facility] Last Admin: 11/14/19 13:14 Dose: 80 mg Documented by: Sodium Chloride () 10 - 40 ml IV UD PRN PRN Reason: SALINE FLUSH Last Admin: 11/13/19 01:07 Dose: 10 ml Documented by: Discharge Diet: - - As directed by receiving facility Discharge Activity: - - As directed by receiving facility Home Medications: Medications to take at Discharge Metoprolol Succinate [Toprol Xl] 25 mg PO DAILY 09/07/18 Omeprazole 40 mg PO DAILY 06/11/18 metFORMIN HCl [Glucophage] 500 mg PO BIDCM 06/11/18 Amlodipine [Norvasc] 10 mg PO DAILY 09/30/19 Cyanocobalamin (Vitamin B-12) [Vitamin B-12] 1,000 mcg PO DAILY 09/30/19 Rosuvastatin Calcium 5 mg PO DAILY 09/30/19 Meclizine HCl [Antivert] 25 mg PO 4X/DAY PRN PRN #20 tab 10/21/19 Nut.tx.gluc.intoler,Lac-Fr,Soy [Glucerna] 237 ml PO TIDCM 10/21/19 Polyethylene Glycol 3350 [Miralax] 17 gm PO DAILY 10/21/19 Docusate Sodium [Colace] 100 mg PO DAILY 11/12/19 Primary Care Physician: Franco Shin MD [Primary Care Provider] - Please follow up with your Primary Care Physician in: As directed by receiving facility Disposition: Acute care Hospital Minutes spent on discharge:: 35 Patient Condition:: Stable Medical Necessity - Tobacco Use Smoking Status: Former smoker Meaningful Use Info Meaningful Use Diagnoses (Choose all that apply): None applicable
[2019-11-14 13:58] LABS: Pathologist Review Reviewed
== END 2019-11-14 14:55 | disposition short-term general hospital (02) | DRG 698 ==
LOC: ED 20:19 → MS3 11-13 00:11
PROVIDERS: Hospitalist; Admitting Provider Hospitalist; Emergency Provider Emergency Medicine; PCP Family Medicine; Visit Provider Internal Medicine
DX: T83.518A Infection and inflammatory reaction due to other urinary catheter, initial encounter (principal); A41.9 Sepsis, unspecified organism; N39.0 Urinary tract infection, site not specified; Z16.12 Extended spectrum beta lactamase (ESBL) resistance; N17.9 Acute kidney failure, unspecified; C79.11 Secondary malignant neoplasm of bladder; C79.01 Secondary malignant neoplasm of right kidney and renal pelvis; C78.5 Secondary malignant neoplasm of large intestine and rectum; R18.8 Other ascites; C67.9 Malignant neoplasm of bladder, unspecified; N18.3 Chronic kidney disease, stage 3 (moderate); E11.22 Type 2 diabetes mellitus with diabetic chronic kidney disease; I12.9 Hypertensive chronic kidney disease with stage 1 through stage 4 chronic kidney disease, or unspecified chronic kidney disease; E78.5 Hyperlipidemia, unspecified; D64.9 Anemia, unspecified; B96.1 Klebsiella pneumoniae [K. pneumoniae] as the cause of diseases classified elsewhere; K21.9 Gastro-esophageal reflux disease without esophagitis; Z93.2 Ileostomy status; Z93.3 Colostomy status; Z90.6 Acquired absence of other parts of urinary tract; Z90.5 Acquired absence of kidney; Z90.49 Acquired absence of other specified parts of digestive tract; Z87.891 Personal history of nicotine dependence; Z79.84 Long term (current) use of oral hypoglycemic drugs; Z90.79 Acquired absence of other genital organ(s)
CPT/HCPCS: 36415; 71046; 74177; 80048; 80053; 81001; 82962; 83605; 85025; 87040; 87077; 87086; 87088; 87186; 87804; 97802; 99283; J2185; J7030; Q9967; A4216; J2405

== ENCOUNTER → 2019-12-08 08:50 | Outpatient (CLI) | payer MEDICARE, SELFPAY ==
[2019-11-13 00:41] VITALS: BMI 22.6
[2019-12-08 09:14] VITALS: BP 144/63; PULSE 44; RESP 16; TEMP 36.6; O2SAT 100
[2019-12-08 09:49] VITALS: BP 114/60; PULSE 75; RESP 18; TEMP 36.6; O2SAT 100
[2019-12-08 10:49] VITALS: BP 125/59; PULSE 70; RESP 16; TEMP 36.7; O2SAT 100
[2019-12-08 12:03] VITALS: BP 133/59; PULSE 62; RESP 18; TEMP 36.6; O2SAT 100
[2019-12-08 13:03] VITALS: BP 118/53; PULSE 65; RESP 16; TEMP 36.6
[2019-12-08 13:28] VITALS: BP 124/59; PULSE 68; RESP 16; TEMP 36.7; O2SAT 99
== END ==
PROVIDERS: PCP Family Medicine; Referring Provider Internal Medicine Hematology & Oncology; Visit Provider Internal Medicine Hematology & Oncology
DX: D64.81 Anemia due to antineoplastic chemotherapy (principal)
CPT/HCPCS: 36430; 86850; 86900; 86901; 86920; 86922; J7040; P9016; A4216

== ENCOUNTER → 2019-12-30 08:53 | Outpatient (CLI) | payer MEDICARE, SELFPAY ==
[2019-12-30] VITALS (8 sets, daily range): BP systolic 106–125; BP diastolic 51–59; PULSE 56–65; RESP 16; TEMP 36.4–36.8; O2SAT 96–100; BMI 21.0
[2019-12-30] MEDS: 0.9% NaCl Peripheral Flush Adult/Peds IV (09:40)
== END ==
PROVIDERS: PCP Family Medicine; Referring Provider Internal Medicine Hematology & Oncology; Visit Provider Internal Medicine Hematology & Oncology
DX: Z51.89 Encounter for other specified aftercare (principal); D64.81 Anemia due to antineoplastic chemotherapy
CPT/HCPCS: 36430; 86850; 86900; 86901; 86920; 86922; J7040; P9016; A4216

== ENCOUNTER → 2020-02-07 10:23 | Outpatient (CLI) | payer MEDICARE, SELFPAY ==
[2019-12-30 09:08] VITALS: BMI 21.0
[2020-02-07] MEDS: 0.9% NaCl VAD Flush IV (11:27)
[2020-02-07 11:39] VITALS: BP 119/62; PULSE 67; RESP 18; TEMP 36.3; O2SAT 100
[2020-02-07 11:54] VITALS: BP 129/58; PULSE 63; RESP 16; TEMP 36.4; O2SAT 100
[2020-02-07 12:54] VITALS: BP 127/57; PULSE 63; RESP 16; TEMP 36.5; O2SAT 100
[2020-02-07 14:03] VITALS: BP 137/61; PULSE 71; RESP 16; TEMP 36.5; O2SAT 100
== END ==
PROVIDERS: PCP Family Medicine; Referring Provider Internal Medicine Hematology & Oncology; Visit Provider Internal Medicine Hematology & Oncology
DX: D64.81 Anemia due to antineoplastic chemotherapy (principal)
CPT/HCPCS: 36430; 86850; 86900; 86901; 86920; 86922; J7040; P9016; A4216

== ENCOUNTER 2020-09-11 16:36 | Inpatient (IN) | payer MEDICARE, SELFPAY ==
[2019-12-30 09:08] VITALS: BMI 21.0
[2020-09-11 16:37] VITALS: BP 121/66; PULSE 116; RESP 20; TEMP 35.5; O2SAT 94; BMI 23.7
--- NOTE | 2020-09-11 17:34 | ED.VIS.GEN ---
History of Present Illness Chief Complaint: Back Informant: Patient Narrative: 79-year-old male with history of bladder cancer states that he had nausea and vomiting for the last 3 days. Has been off of his Eliquis and his metformin because he states he had a PET scan and a lymph node biopsy yesterday. He states that the nausea/vomiting/abdominal pain has been difficult over the last couple of days but is worse over the last 24 hours. He has not had a fever. He states he is done with chemotherapy currently. Not doing any radiation therapy. - Past Medical History (1) Bladder cancer Status: Chronic (2) Diabetes mellitus Status: Chronic (3) Hypertension Status: Chronic (4) GERD (gastroesophageal reflux disease) Status: Chronic (5) Chronic kidney disease Status: Chronic Past Medical History - Allergies and Home Meds Allergies/Adverse Reactions: Allergies No Known Allergies Allergy (Verified 09/11/20 16:37) Surgical History: cataract, cholecystectomy - bile duct injury., - - TURBT x 3, Exploratory laparotomy, hepatojejunostomy with wound vac, liver resection, DCS: A-10C Warthog Smoking Status: Former smoker - Family History Maternal Family History: Reports: Diabetes, Dementia Sibling Family History: Reports: COPD - Brother. Review of Systems General: Denies: Chills, Fever Eyes: Denies: Visual changes - bilaterally, Diplopia ENT: Denies: Rhinorrhea, Sore throat Cardiovascular: Denies: Chest pain, Palpitations Respiratory: Denies: Dyspnea, Cough, Dyspnea on exertion Gastrointestinal: Reports: Abdominal pain, Nausea, Vomiting, Diarrhea Musculoskeletal: Denies: Myalgias, Arthralgias Skin: Denies: Rash, Abscess Neurological: Reports: Headache. Denies: Parasthesia, Numbness Physical Exam Vital Signs/Narrative: Vital Signs Temp Pulse Resp BP Pulse Ox 09/11/20 16:37 95.9 F L 20 L 116 H 121/66 H 94 Inital Vital Signs reviewed: Yes General: Well nourished, Well developed, No Acute Distress ENT: Dry mucous membranes. Negative for: No rhinorrhea Cardiovascular: Regular rhythm, Tachycardia Abdomen: - - Tenderness to palpation diffusely. Liquid stool in ostomy bag. Back: Spinal tenderness. Negative for: CVA tenderness Extremities: Negative for: Nontender, No edema Skin: Negative for: Normal color, No rash Neurological: Alert, Oriented x3 Psychological: Normal affect, Normal Mood Diagnostic/Tx/Re-eval - Medical Decision Making 79-year-old male presenting with abdominal pain. He states this is worse today. He is also had a lot of nausea and vomiting. Lab work shows that he is acutely dehydrated so he was given IV fluids. He does not have a leukocytosis. He was found to have a UTI however it was treated with Rocephin for this. Patient had CT abdomen pelvis without IV contrast due to the acute kidney injury. This shows small bowel obstruction. Patient had NG tube placed. He is currently comfortable. He is only had a couple of doses of morphine hours apart. KUB shows good placement of the NG tube. I spoke with Dr. Stokes and he was amenable to letting the patient stay here given that his symptoms were mild. He recommended admission to internal medicine. Patient was admitted in stabilized condition. Impression: 1. Acute kidney injury 2. UTI 3. Small bowel obstruction ED Disposition - Plan for ED Patient: Disposition: Acute Care Hospital [facility]
--- NOTE | 2020-09-11 17:40 | CT_ITS ---
STUDY: CT ABDOMEN AND PELVIS WITHOUT CONTRAST REASON FOR EXAM: Male, 79 years old. Abdominal and back pain for 3 days. History of bladder cancer. RADIATION DOSAGE (If Supplied By Facility): CTDIvol = ( 9.13 ) mGy, DLP = ( 458.53 ) mGycm TECHNIQUE: Transaxial images were obtained from the dome of the diaphragm to the symphysis pubis without oral contrast, and without intravenous contrast. Sagittal and coronal images were reconstructed. Individualized dose optimization techniques were used for this CT. COMPARISON: 11/13/2019. FINDINGS: Mild emphysematous changes at the lung bases. The heart is normal in size. The visualized portions of the heart are within normal limits. The liver is normal in size. There is evidence of pneumobilia. This suggests sphincterotomy. There are surgical clips in the gallbladder fossa consistent with a prior cholecystectomy. Normal spleen. Partial fatty replacement in the pancreas without mass. Question adenoma on the right adrenal. Normal left adrenal. The right kidney is not visualized. There are surgical clips in the hilum suggesting nephrectomy. Normal left kidney. Minimal stranding of perinephric fat. There is mild hydronephrosis and dilatation of the proximal ureter to the ileal conduit without filling defect. Normal visualized stomach. There are mildly distended loops of small bowel containing both air and fluid. No obvious transition point. There is mild distention of the colon to the left lower quadrant ileostomy. The rectum and distal colon are absent. There is non-visualization of the appendix. There is diffuse atherosclerotic calcification of the abdominal aorta, without a demonstrated aneurysm. Normal inferior vena cava. Normal retroperitoneum. Urinary bladder is surgically absent as is the prostate. No pelvic lymphadenopathy. No free air or free fluid is seen within the peritoneal cavity. There is a ostomy for the ileal conduit right lower quadrant. Colostomy is seen in the left lower quadrant. The abdominal wall is otherwise grossly normal. There are diffuse degenerative changes of the visualized lumbar spine. CT/Abdomen/Pelvis without Cont IMPRESSION: 1. Diffuse distention of small bowel loops without visualized transition zone. There is mild distention of the proximal colon as well. Small bowel obstruction versus ileus. 2. Resolution of large fluid collection in the right pelvis noted on the previous examination. 3. No other major interval change. Electronically Signed: Uziel Vasquez DO at 20:05 EST Tel [phone], Service support ,
[2020-09-11] MEDS: Morphine 4 MG/ML Syringe IV ×2 (18:13→21:40)
[2020-09-11] MEDS: Ondansetron 4 MG/2 ML Vial IV (18:13)
[2020-09-11] MEDS: 0.9% Normal Saline 1,000 ML 1000 ML IV (18:15)
[2020-09-11 18:25] LABS: Absolute Lymphocyte Count 0.38 X10^3/uL (0.83-4.51); Absolute Neutrophil Count 4.6 X10^3/uL (2.0-7.7); Basophil# 0.01 X10^3/uL; Basophil% 0.2 % (0-1); Eosinophil# 0.09 X10^3/uL; Eosinophils% 1.6 % (0-5); Hematocrit 35.1 % (40-54); Hemoglobin 11.7 g/dL (13.0-16.5); Lymphocyte # 0.38 X10^3/ul (4.0); Lymphocyte % 6.9 % (19-41); Mean Corp Hgb Conc 33.3 g/dL (32-36); Mean Corpuscular Hgb 31.4 pg (27.0-32.0); Mean Corpuscular Volume 94.1 fL (80-94); Monocyte# 0.46 X10^3/uL; Monocyte% 8.3 % (0-10); NRBC Flagged by Analyzer 0 % (0-5); Neutrophil # 4.57 X10^3/uL (2.7-7.7); Neutrophil % 82.5 % (47-70); POSITIVE DIFFERENTIAL YES; Platelet Count 209 K/mm3 (150-450); RBC Distribution Width CV 12.7 % (11.6-14.6); RBC Distribution Width SD 43.9 fl (35.1-43.9); Red Blood Count 3.73 M/mm3 (4.6-6.2); White Blood Count 5.5 K/mm3 (4.4-11.0)
[2020-09-11 18:26] LABS: Mucous, Urine 0 SEEN /hpf (<or=2+)
[2020-09-11 18:28] LABS: Color, Urine Yellow (Yellow); Glucose, Dipstick Normal (Normal); Ketone-Dipstick Negative (Negative); Leukocyte Esterase-Dipstick 500 /ul (Negative); Nitrite-Dipstick Positive (Negative); Occult Blood-Urine 25 /ul (Negative); Protein-Dipstick 100 mg/dl (Negative); Specific Gravity, Urine 1.015 (1.002-1.030); Urine Clarity Sl. Cloudy (Clear); Urine Urobilinogen 1 mg/dl (Normal)
[2020-09-11 18:29] LABS: Urine Bilirubin Dipstick 1 mg/dL (Negative)
[2020-09-11 18:31] LABS: Differential Indicated SCAN CRITERIA MET
[2020-09-11 18:54] LABS: Differential Comment SCANNED
[2020-09-11 18:55] LABS: ALB/GLOB Ratio 0.7 RATIO (0.9-2.4); AST(SGOT) 15 U/L (15-37); Alanine Aminotransfer ALT/SGPT 25 U/L (16-61); Albumin, Serum 2.8 g/dL (3.2-5.0); Alkaline Phosphatase 79 U/L (45-117); Anion Gap 8 (5-15); BUN 29 mg/dL (7-18); BUN/Creat Ratio 13.8 RATIO (10-20); Calcium,Total 8.8 mg/dL (8.5-10.1); Chloride 98 mmol/L (98-107); EST Glomerular Filtration Rate 33 mL/min (>60); Est Glom Filt Rate - Afr Amer 40 mL/min (>60); Estimated Creatinine Clearance 31.38 ml/min; Globulin 4.3 g/dL (2.2-4.2); Glucose 192 mg/dL (74-106); Lipase 50 U/L (73-393); Potassium 4.5 mmol/L (3.5-5.1); Protein, Total 7.1 g/dL (6.4-8.2); Sodium Level 131 mmol/L (136-145)
[2020-09-11 18:59] LABS: Amorphous Sediment 1+ PHOS; Bacteria 1+ /hpf (None Seen); Red Blood Cells-Urine 0-5 SEEN /hpf (0-5); Squamous Epithelial Cells - UA 5-10 SEEN /hpf (0-5); White Blood Cells 25-50 SEEN /hpf (0-5)
[2020-09-11 21:00] VITALS: BP 122/75; PULSE 101; RESP 15; O2SAT 96
[2020-09-11] MEDS: Ondansetron 4 MG/2 ML Vial IM (22:09)
[2020-09-11] MEDS: 0.9% Normal Saline 1,000 ML 999 ML IV (22:10)
[2020-09-11] MEDS: Lidocaine 4% 5 ML Ampul 2 ML INHALATION (22:29)
--- NOTE | 2020-09-11 22:30 | RAD_ITS ---
HISTORY: NG PLACEMENT ADDITIONAL HISTORY: None. COMPARISON: CT 09/11/2020 EXAMINATION/TECHNIQUE: XR Abdomen 1 View Number of images including paperwork: 1 FINDINGS: FREE AIR: None detected. BOWEL GAS PATTERN: Dilated loops of small bowel partially visible. CALCIFICATIONS: No definite urinary tract calculi. ORGANS: No evidence of organomegaly. SOFT TISSUES: Unremarkable. BONES: No acute skeletal findings. LOWER CHEST: Unremarkable visible portions. DEVICES: Gastric tube tip and side-port project over the stomach. RAD/Abdomen Single View (Portable) IMPRESSION: Gastric tube in place. Dilated small bowel partially visualized, better evaluated on previous CT. at [id number] Reported and signed by: Atiya Hough MD Electronically Signed: Atiya Hough MD at 22:45 EST Tel , Service support ,
[2020-09-11 22:31] VITALS: PULSE 86; RESP 18
--- NOTE | 2020-09-11 22:34 | HP.PCM_ITS ---
Problem List (1) Debility Status: Chronic (2) Bladder cancer Status: Chronic (3) Bile duct injury Status: Chronic (4) Diabetes mellitus Status: Chronic (5) Hypertension Status: Chronic (6) Gross hematuria Status: Chronic (7) GERD (gastroesophageal reflux disease) Status: Chronic (8) Chronic kidney disease Status: Chronic (9) UTI (urinary tract infection) Status: Acute (10) SBO (small bowel obstruction) Status: Acute (11) KRISTIN (acute kidney injury) Status: Acute History of Present Illness Date of Admission: 09/11/20 Chief Complaint: abdominal pain The patient is a 79 year old M with a significant history of bladder cancer status post bladder resection with urostomy; and colostomy who presents to the emergency department with a 3-day history of excruciating middle abdominal pain that radiates to his back. He described the pain as sharp. He denies any aggravating factors or pain. Heating pad helps with the pain. Associated with symptoms is nausea and vomiting. A day before presentation patient had a PET scan. Reportedly a lymph node was biopsied. Per imaging patient may be having granulomatous disease. Past Medical History Past Medical History (Chronic Problems): Chronic Problems Debility (Chronic) Bladder cancer (Chronic) Bile duct injury (Chronic) Diabetes mellitus (Chronic) Hypertension (Chronic) Gross hematuria (Chronic) GERD (gastroesophageal reflux disease) (Chronic) Chronic kidney disease (Chronic) Allergies No Known Allergies Allergy (Verified 09/11/20 16:37) Home Medications: Ambulatory Orders Medication Instructions Recorded Metoprolol Succinate [Toprol Xl] 25 mg PO DAILY 06/11/18 Omeprazole 40 mg PO DAILY 06/11/18 metFORMIN HCl [Glucophage] 500 mg PO BIDCM 06/11/18 Amlodipine [Norvasc] 10 mg PO DAILY 09/30/19 Cyanocobalamin (Vitamin B-12) 1,000 mcg PO DAILY 09/30/19 [Vitamin B-12] Rosuvastatin Calcium 5 mg PO DAILY 09/30/19 Meclizine HCl [Antivert] 25 mg PO 4X/DAY PRN PRN #20 tab 10/21/19 Polyethylene Glycol 3350 [Miralax] 17 gm PO DAILY 10/21/19 Docusate Sodium [Colace] 100 mg PO DAILY 11/12/19 Surgical History: cataract, cholecystectomy - bile duct injury., - - TURBT x 3, Exploratory laparotomy, hepatojejunostomy with wound vac, liver resection, DCS: A-10C [place] Psychiatric History: No pertinent psych hx Smoking Status: Never smoker - *Family History Maternal History Items: Diabetes, Dementia Sibling History Items: COPD - Brother. Review of Systems Constitutional: Denies: Chills, Fever, Weight Change HEENT: Denies: Head Aches, Sinus Congestion, Sinus Drainage Cardiovascular: Denies: Chest Pain, Palpitations Respiratory: Denies: Cough, Shortness of breath at rest, Sputum production Gastrointestinal: Reports: Abdominal Pain, Nausea, Vomiting Genitourinary: Denies: Dysuria Musculoskeletal: Denies: Joint Pain, Joint Tenderness Skin: Denies: Rash, Wounds Neurological: Denies: Numbness, Tingling, Focal weakness Psychiatric: Denies: Anxiety, Depression, Homicidal Ideations, Suicidal Ideations Hematologic/ Lymphatic: Denies: Easy Bruising, Easy Bleeding VTE Information - Inpt Only VTE Present on Admission: No VTE Mechan Device Prophylaxis: SCD's Patient Problems: Active and Suspected Problems UTI (urinary tract infection) (Acute) SBO (small bowel obstruction) (Acute) KRISTIN (acute kidney injury) (Acute) - Physical Exam Vitals/I&O's: Vital Signs Temp Pulse Resp BP Pulse Ox 95.9 F L 86 18 122/75 H 96 09/11/20 16:37 09/11/20 22:31 09/11/20 22:31 09/11/20 21:00 09/11/20 21:00 Oxygen Delivery Method Room Air Weight: 77.111 kg Body Mass Index (BMI) 23.7 Intake and Output for Last 24 Hours 09/09/20 09/10/20 09/11/20 23:59 23:59 23:59 Intake Total 1000 / 1000 Balance 1000 / 1000 General: Alert, Oriented x3, Cooperative HEENT: Atraumatic, PERRLA, EOMI, Normocephalic Neck: Supple, No JVD, Negative Carotid Bruits Lungs: Clear to auscultation, Normal air movement, No rhonchi, No wheeze, No rales Cardiovascular: Regular rate, Regular Rhythm, Normal S1, Normal S2, No murmurs Abdomen: Bowel Sounds Present, Soft, Non Tender, - - Urostomy and ileostomy in place Extremities: No edema, Capillary Refill Less than 3 Seconds Skin: No rashes, No breakdown Musculoskeletal: No Tenderness to Palpation of Joints or Extremities Neurological: Cranial nerves II-XII grossly intact Psych/Mental Status: Normal Affect, Appropriate Laboratory Results 09/11/20 18:05: WBC 5.5, RBC 3.73 L, Hgb 11.7 L, Hct 35.1 L, MCV 94.1 H, MCH 31.4, MCHC 33.3, RDW Std Deviation 43.9, RDW Coeff of [place]cha 12.7, Plt Count 209, MPV 9.0, Immature Gran % (Auto) 0.500, Neut % (Auto) 82.5 H, Lymph % (Auto) 6.9 L, [place] % (Auto) 8.3, Eos % (Auto) 1.6, Baso % (Auto) 0.2, Absolute Neuts (auto) 4.6, Absolute Lymphs (auto) 0.38 L, Nucleated RBC % 0, Differential Comment SCANNED 09/11/20 18:05: Sodium 131 L, Potassium 4.5, Chloride 98, Carbon Dioxide 25.0, Anion Gap 8, BUN 29 H, Creatinine 2.10 H, Estim Creat Clear Calc 31.38, Est GFR (MDRD) Af Amer 40 L, Est GFR (MDRD) Non-Af 33 L, BUN/Creatinine Ratio 13.8, Glucose 192 H, Calcium 8.8, Total Bilirubin 0.70, AST 15, ALT 25, Alkaline Phosphatase 79, Total Protein 7.1, Albumin 2.8 L, Globulin 4.3 H, Albumin/Globulin Ratio 0.7 L, Lipase 50 L 09/11/20 18:20: Urine Color Yellow, Urine Clarity Sl. Cloudy, Urine pH 6.0, Ur Specific [place] 1.015, Urine Protein 100 H, Urine Glucose (UA) Normal, Urine Ketones Negative, Urine Occult Blood 25 H, Urine Nitrite Positive H, Urine Bilirubin 1 H, Urine Urobilinogen 1 H, Ur Leukocyte Esterase 500 H, Urine RBC 0- 5 SEEN, Urine WBC 25-50 SEEN, Ur Squamous Epith Cells 5-10 SEEN, Amorphous Sediment 1+ PHOS, Urine Bacteria 1+, Urine Mucus 0 SEEN Current Medications Sodium Chloride () 1,000 mls @ 999 mls/hr IV .[id number] ONE Stop: 09/11/20 23:07 Last Admin: 09/11/20 22:10 Dose: 999 mls/hr Documented by: Ceftriaxone Sodium (Rocephin) 1 gm in 50 mls @ 100 mls/hr IV X1 ONE Stop: 09/11/20 22:43 Assessment/Plan All Active Problems UTI (urinary tract infection) (Acute) SBO (small bowel obstruction) (Acute) KRISTIN (acute kidney injury) (Acute) Small bowel obstruction CT of abdomen and pelvis showed small bowel obstruction without any visualization of transition point. Contrast could not be used because of KRISTIN. Independently discussed the case with general surgery, Dr. Stokes who said that patient can be admitted for supportive treatment including NG tube pain control and antiemetics. If surgery is needed patient will have to be transferred outside. General surgery consult. Antiemetics as needed ordered. Morphine as needed ordered. IV hydration. Keep n.p.o. NG tube placed at the ED. AK on CKD stage III Creatinine presentation was 2.10. Creatinine baseline is less than 2. BUN 29. BUN over creatinine 13.8. Received normal saline bolus at emergency department. Continue patient on normal saline maintenance infusion. Trend BMP. UTI Urostomy contributing Review of emergency medical department labs showed abnormal urinalysis. Received ceftriaxone at the emergency department. Ceftriaxone continued. Diabetes mellitus with hyperglycemia Blood glucose not within goal. Home metformin on hold. Accu-Chek every 6 hours with correction scale insulin. Hypertension Blood pressure is stable in regard to his age. Metoprolol and amlodipine held secondary to n.p.o. status. As needed hydralazine IV ordered. DVT prophylaxis SCD ordered. Inpatient E&M: [id number] Init Hosp L3
[2020-09-11 22:48] VITALS: BP 145/65; PULSE 98; RESP 18; TEMP 36.6; O2SAT 96
[2020-09-11] MEDS: Ceftriaxone 1 GM/50 ML BAG IV (22:48)
[2020-09-11 23:38] VITALS: BMI 23.9; BMI 24.0
[2020-09-12] MEDS: 0.9% Normal Saline 1,000 ML 75 ML IV ×2 (00:07→13:24)
[2020-09-12 00:10] VITALS: BP 121/60; PULSE 98; RESP 24; TEMP 37.3; O2SAT 94
[2020-09-12] MEDS: 0.9% Saline Lock 10 ML Syringe IV ×4 (03:16→16:44)
[2020-09-12] MEDS: Morphine 2 MG/ML Syringe IV ×2 (03:16→08:23)
[2020-09-12 05:53] LABS: Absolute Lymphocyte Count 0.31 X10^3/uL (0.83-4.51); Absolute Neutrophil Count 2.1 X10^3/uL (2.0-7.7); Eosinophil# 0.08 X10^3/uL; Eosinophils% 2.8 % (0-5); Hematocrit 33.5 % (40-54); Hemoglobin 11.2 g/dL (13.0-16.5); Lymphocyte # 0.31 X10^3/ul (4.0); Lymphocyte % 10.8 % (19-41); Mean Corp Hgb Conc 33.4 g/dL (32-36); Mean Corpuscular Hgb 31.5 pg (27.0-32.0); Mean Corpuscular Volume 94.1 fL (80-94); Mean Platelet Vol. 8.9 fl (6.2-12.0); Monocyte# 0.39 X10^3/uL; Monocyte% 13.6 % (0-10); NRBC Flagged by Analyzer 0 % (0-5); Neutrophil # 2.08 X10^3/uL (2.7-7.7); Neutrophil % 72.5 % (47-70); POSITIVE DIFFERENTIAL YES; Platelet Count 199 K/mm3 (150-450); RBC Distribution Width CV 12.8 % (11.6-14.6); RBC Distribution Width SD 44.5 fl (35.1-43.9); Red Blood Count 3.56 M/mm3 (4.6-6.2); White Blood Count 2.9 K/mm3 (4.4-11.0)
[2020-09-12] MEDS: Insulin Lispro 100 UNIT/ML INSULN.PEN SC (06:01)
[2020-09-12 06:06] VITALS: BP 143/78; PULSE 97; RESP 18; TEMP 37.2; O2SAT 98
[2020-09-12 06:13] LABS: Differential Indicated SCAN CRITERIA MET
[2020-09-12 06:19] LABS: Differential Comment SCANNED
[2020-09-12 06:34] LABS: Anion Gap 7 (5-15); BUN 28 mg/dL (7-18); BUN/Creat Ratio 15.6 RATIO (10-20); Calcium,Total 8.2 mg/dL (8.5-10.1); Chloride 102 mmol/L (98-107); EST Glomerular Filtration Rate 39 mL/min (>60); Est Glom Filt Rate - Afr Amer 47 mL/min (>60); Glucose 178 mg/dL (74-106); Potassium 4.3 mmol/L (3.5-5.1); Sodium Level 133 mmol/L (136-145)
--- NOTE | 2020-09-12 08:29 | NURSING ---
was asked to see patient for leaking ostomy appliance. Pt has a history of bladder cancer with a bladder resection with presence urostomy and colostomy. pt states he has had nausea and vomiting for approx 3 days. pt did have a PET scan on 09/10/20 and biopsy of a lymph node. the colostomy appliance is currently leaking. removed the appliance. stoma is beefy red and measures approx 2. stoma sits slightly above the skin level, but does have a large crease inferior to the stoma. 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 cleansed peristomal skin with warm water. pat dry. placed an Adaptic ring to fill in the creased area. applied a new flat 2 piece Veda appliance with a small amount stoma paste. pt tolerated well. SATISH Geiger and Dr Moore both in to see patient as this time as well. urostomy appliance intact at this time. emptied for 250cc's dark yellow urine. pt aware to call for further needs.
[2020-09-12 08:30] VITALS: PULSE 84
--- NOTE | 2020-09-12 08:41 | PN_ITS ---
Patient Problems: Active and Suspected Problems UTI (urinary tract infection) (Acute) SBO (small bowel obstruction) (Acute) KRISTIN (acute kidney injury) (Acute) Reason for Visit: SBO Subjective: Having abdominal pain. Patient stated that is been going on for about 3 days. Denies ever having had a bowel obstruction before. Vitals/I&O's: Vital Signs Temp Pulse Resp BP Pulse Ox 37.2 C 97 18 143/78 H 98 09/12/20 06:06 09/12/20 06:06 09/12/20 06:06 09/12/20 06:06 09/12/20 06:06 Oxygen Delivery Method Room Air Weight: 77.9 kg Body Mass Index (BMI) 23.9 Intake and Output for Last 24 Hours 09/10/20 09/11/20 09/12/20 23:59 23:59 23:59 Intake Total 2049 240 / 240 Output Total 750 / 750 Balance 2049 -510 / -510 General: Alert, - - uncomfortable. HEENT: Atraumatic, Normocephalic Oral: Moist Mucosa, No Gingival or Mucosal Lesions/ Ulcerations Neck: No Nodes, Thyroid Normal Size and Texture Lungs: Clear to auscultation, Normal air movement, No rhonchi, No wheeze, No rales Cardiovascular: Regular rate, Regular Rhythm, Normal S1, Normal S2, No murmurs Abdomen: - - Colostomy intact in the left lower quadrant and urostomy in the right lower quadrant. Distended, hypoactive bowel sounds, diffusely tender. Extremities: No edema, No Calf Tenderness Psych/Mental Status: Normal Affect, Appropriate Laboratory Results 09/11/20 18:05: WBC 5.5, RBC 3.73 L, Hgb 11.7 L, Hct 35.1 L, MCV 94.1 H, MCH 31.4, MCHC 33.3, RDW Std Deviation 43.9, RDW Coeff of [place]cha 12.7, Plt Count 209, MPV 9.0, Immature Gran % (Auto) 0.500, Neut % (Auto) 82.5 H, Lymph % (Auto) 6.9 L, [place] % (Auto) 8.3, Eos % (Auto) 1.6, Baso % (Auto) 0.2, Absolute Neuts (auto) 4.6, Absolute Lymphs (auto) 0.38 L, Nucleated RBC % 0, Differential Comment SCANNED 09/11/20 18:05: Sodium 131 L, Potassium 4.5, Chloride 98, Carbon Dioxide 25.0, Anion Gap 8, BUN 29 H, Creatinine 2.10 H, Estim Creat Clear Calc 31.38, Est GFR (MDRD) Af Amer 40 L, Est GFR (MDRD) Non-Af 33 L, BUN/Creatinine Ratio 13.8, Glucose 192 H, Calcium 8.8, Total Bilirubin 0.70, AST 15, ALT 25, Alkaline Phosphatase 79, Total Protein 7.1, Albumin 2.8 L, Globulin 4.3 H, Albumin/Globulin Ratio 0.7 L, Lipase 50 L 09/11/20 18:20: Urine Color Yellow, Urine Clarity Sl. Cloudy, Urine pH 6.0, Ur Specific [place] 1.015, Urine Protein 100 H, Urine Glucose (UA) Normal, Urine Ketones Negative, Urine Occult Blood 25 H, Urine Nitrite Positive H, Urine Bilirubin 1 H, Urine Urobilinogen 1 H, Ur Leukocyte Esterase 500 H, Urine RBC 0- 5 SEEN, Urine WBC 25-50 SEEN, Ur Squamous Epith Cells 5-10 SEEN, Amorphous Sediment 1+ PHOS, Urine Bacteria 1+, Urine Mucus 0 SEEN 09/12/20 05:26: WBC 2.9 L, RBC 3.56 L, Hgb 11.2 L, Hct 33.5 L, MCV 94.1 H, MCH 31.5, MCHC 33.4, RDW Std Deviation 44.5 H, RDW Coeff of [place]cha 12.8, Plt Count 199, MPV 8.9, Immature Gran % (Auto) 0.300, Neut % (Auto) 72.5 H, Lymph % (Auto) 10.8 L, [place] % (Auto) 13.6 H, Eos % (Auto) 2.8, Baso % (Auto) 0.0, Absolute Neuts (auto) 2.1, Absolute Lymphs (auto) 0.31 L, Nucleated RBC % 0, Differential Comment SCANNED, Diff Path Review February09/12/20 05:26: Sodium 133 L, Potassium 4.3, Chloride 102, Carbon Dioxide 24.0, Anion Gap 7, BUN 28 H, Creatinine 1.80 H, Estim Creat Clear Calc 36.60, Est GFR (MDRD) Af Amer 47 L, Est GFR (MDRD) Non-Af 39 L, BUN/Creatinine Ratio 15.6, Glucose 178 H, Calcium 8.2 L Current Medications Dextrose (Dextrose 50%-Water 25 Gm/50 Ml Disp.Syrin) 0 gm IV X1 PRN; Protocol PRN Reason: Hypoglycemia Glucagon (Glucagon 1 Mg/Ml Syringe) 1 mg IM .X1 PRN PRN Reason: Hypoglycemia Hydralazine HCl (Hydralazine 20 Mg/Ml Vial) 5 mg IV Q6H PRN PRN PRN Reason: SBP>160 or DBP > 120 Hydromorphone HCl (Hydromorphone 0.5 Mg/0.5 Ml Syringe) 0.5 mg IV Q3H PRN PRN PRN Reason: Pain Score 6-10 Sodium Chloride () 1,000 mls @ 75 mls/hr IV .[id number] ONOFRE Last Admin: 09/12/20 00:07 Dose: 75 mls/hr Documented by: Ceftriaxone Sodium (Rocephin) 1 gm in 50 mls @ 100 mls/hr IV Q24H ONOFRE Pantoprazole Sodium 40 mg/ (Sodium Chloride) 110 mls @ 330 mls/hr IV Q24 ONOFRE Insulin Human Lispro (Insulin Lispro 100 Unit/Ml Insuln.Pen) 0 unit SC Q6 ONOFRE; Protocol Last Admin: 09/12/20 06:01 Dose: 1 units Documented by: Ondansetron HCl (Ondansetron 4 Mg/2 Ml Vial) 4 mg IV Q8H PRN PRN PRN Reason: NAUSEA/VOMITING Prochlorperazine Edisylate (Prochlorperazine 10 Mg/2 Ml Vial) 5 mg IV Q4H PRN PRN PRN Reason: Breakthrough nausea/vomiting Sodium Chloride (0.9% Saline Lock 10 Ml Syringe) 10 - 40 ml IV UD PRN PRN Reason: SALINE FLUSH Last Admin: 09/12/20 08:23 Dose: 10 ml Documented by: STROKE Vital Signs/Narrative: Vital Signs Temp Pulse Resp BP Pulse Ox 09/12/20 06:06 37.2 C 97 18 143/78 H 98 Medical Necessity - Tobacco Use Smoking Status: Former smoker Assessment/Plan All Active Problems UTI (urinary tract infection) (Acute) SBO (small bowel obstruction) (Acute) KRISTIN (acute kidney injury) (Acute) 1. Small bowel obstruction * No obvious transition point noted on CAT scan. Report mentioned this could be small bowel traction versus ileus. Symptoms have been persistent for about 3 days. Patient is very uncomfortable. Concern is that this can be about obstruction could progress. General surgery, at this institution, feels the patient be best suited transfer if surgery were necessary. I have reached out to [facility] were patient has had his prior surgeries about potential transfer. Awaiting on phone call back. * Continue with NG tube to intermittent suction * Continue n.p.o. 2. Abnormal urinalysis * Only 25-50 white blood cells and +1 bacteria. Not convinced the patient does have urinary tract infection but will continue with ceftriaxone for now. Await final culture results if greater than 100,000 coliform units of up to organism then would treat, however if it is negative or showing multiple organisms and would discontinue as it could be contaminant. 3. Acute kidney injury * Creatinine up to 2.1. Baseline is around 1.5. Trending down slightly. * Continue with IV fluid. 4. Diabetes mellitus type 2: * Fair control at this time * Sliding scale insulin 5. VTE prophylaxis: SCDs ordered. Greater than 35 minutes which greater than 50% of time was counseling patient on his bowel obstruction and need for transfer. Part of the need for the transfer is the delay in open beds given the pandemic. Also facilitating transfer to [facility]. Inpatient E&M: [id number] [facility] Hosp L3
--- NOTE | 2020-09-12 09:55 | PCM.CONS.GEN ---
Problem List (1) SBO (small bowel obstruction) Status: Acute Reason for Consult Date of Consultation: 09/12/20 Reason for Consultation: Small bowel obstruction History of Present Illness: The patient is a 79 year old M who presented with a 3 day history of abdominal pain, nausea, vomiting. Patient stated he was having his normal stool output prior to the abdominal pain. He stated he had trail bologna a few days ago and is unsure if this may have contributed to his symptoms. Patient has recently had a ileal conduit created due to bladder cancer. Patient was also found to have a rectal mass at the same time and also had a colostomy created. Patient states he had these two surgeries approximately [address] [place] performed a revision of the ileostomy approximately 8 months ago which was complicated by a parastomal wound. He has also been evaluated more recently by Dr. [place] for a parastomal hernia. A hernia belt was prescribed. Patient unsure if this was truly helping or not. Patient also has to take Miralax daily for his stools. At patient's last visit with colorectal surgery there was concern for possible fistula of the small bowel. It was also mentioned that a parastomal hernia surgery would be very challenging due to patients surgical history. Patient states he had a recent PET scan on Monday 09/10 at [facility] and abdominal lymph node biopsy the same day. Patient had mentioned his symptoms at that time, no recommendations were given. Patient is not currently receiving chemotherapy or radiation. He noted having a good appetite prior to his current symptoms. Patient states most of his abdominal pain is midline and superior to the colostomy. He rates his pain a 6 out of 10. He notes hydration and appetite have decreased over the last 3 days. He denies cardiac and pulmonary history. He notes a DVT in the lower extremity. He was taken off of his blood thinners more recently by this surgeon. In the ED, a CT scan of the abdomen/pelvis was obtained demonstrating the following: IMPRESSION: 1. Diffuse distention of small bowel loops without visualized transition zone. There is mild distention of the proximal colon as well. Small bowel obstruction versus ileus. 2. Resolution of large fluid collection in the right pelvis noted on the previous examination. 3. No other major interval change. WBC is 5.5 upon admission and 2.9 today. NG tube was placed in the ED with approximately 200 cc output with little relief. Patient did have small amount of stool leakage around the stoma appliance prior to this examination. Past Medical History Past Medical History (Chronic Problems): Chronic Problems Debility (Chronic) Bladder cancer (Chronic) Bile duct injury (Chronic) Diabetes mellitus (Chronic) Hypertension (Chronic) Gross hematuria (Chronic) GERD (gastroesophageal reflux disease) (Chronic) Chronic kidney disease (Chronic) Allergies No Known Allergies Allergy (Verified 09/11/20 16:37) Home Medications: Ambulatory Orders Medication Instructions Recorded Metoprolol Succinate [Toprol Xl] 25 mg PO DAILY 06/11/18 Omeprazole 40 mg PO DAILY 06/11/18 metFORMIN HCl [Glucophage] 500 mg PO BIDCM 06/11/18 Amlodipine [Norvasc] 10 mg PO DAILY 09/30/19 Cyanocobalamin (Vitamin B-12) 1,000 mcg PO DAILY 09/30/19 [Vitamin B-12] Rosuvastatin Calcium 5 mg PO DAILY 09/30/19 Polyethylene Glycol 3350 [Miralax] 17 gm PO DAILY 10/21/19 Docusate Sodium [Colace] 100 mg PO DAILY 11/12/19 Magnesium 2 tab PO BID 09/11/20 Surgical History: cataract, cholecystectomy - bile duct injury., - - TURBT x 3, Exploratory laparotomy, hepatojejunostomy with wound vac, liver resection, DCS: A-10C [place] Psychiatric History: No pertinent psych hx Smoking Status: Former smoker - *Family History Maternal History Items: Diabetes, Dementia Sibling History Items: COPD - Brother. Review of Systems Constitutional: Reports: Anorexia, Weakness. Denies: Fever HEENT: Denies: Head Aches, Sinus Congestion, Sinus Drainage Cardiovascular: Denies: Chest Pain, Palpitations Respiratory: Denies: Cough, Shortness of breath at rest, Sputum production Gastrointestinal: Reports: Abdominal Pain, Constipation, Nausea, Vomiting Genitourinary: Denies: Dysuria Musculoskeletal: Denies: Joint Pain, Joint Tenderness Skin: Denies: Rash, Wounds Neurological: Denies: Numbness, Tingling, Focal weakness Psychiatric: Denies: Anxiety, Depression, Homicidal Ideations, Suicidal Ideations Hematologic/ Lymphatic: Reports: Anemia, Hx of blood clot Patient Problems: Active and Suspected Problems UTI (urinary tract infection) (Acute) SBO (small bowel obstruction) (Acute) KRISTIN (acute kidney injury) (Acute) - Physical Exam Vitals/I&O's: Vital Signs Temp Pulse Resp BP Pulse Ox 98.9 F 97 18 143/78 H 98 09/12/20 06:06 09/12/20 06:06 09/12/20 06:06 09/12/20 06:06 09/12/20 06:06 Oxygen Delivery Method Room Air Weight: 171 lb 11.841 oz Body Mass Index (BMI) 23.9 Intake and Output for Last 24 Hours 09/10/20 09/11/20 09/12/20 23:59 23:59 23:59 Intake Total 2049 940 / 940 Output Total 750 / 750 Balance 2049 190 / 190 General: Alert, Oriented x3, Cooperative, - - In pain, grimacing HEENT: Atraumatic, PERRLA, EOMI, Normocephalic Neck: Supple, No JVD, Negative Carotid Bruits Lungs: Clear to auscultation, Normal air movement Cardiovascular: Regular rate, No murmurs Abdomen: Hypoactive Bowel Sounds, Distended, Obese, Guarding, Tender - midline abdomen and superior to ostomy, Hernia - large parastomal hernia, - - ileal conduit and colostomy noted. No air within the stoma bag. Extremities: No edema, Capillary Refill Less than 3 Seconds Skin: No rashes, No breakdown Musculoskeletal: No Tenderness to Palpation of Joints or Extremities Neurological: Neuro grossly intact Psych/Mental Status: Normal Affect, Appropriate Laboratory Results 09/11/20 18:05: WBC 5.5, RBC 3.73 L, Hgb 11.7 L, Hct 35.1 L, MCV 94.1 H, MCH 31.4, MCHC 33.3, RDW Std Deviation 43.9, RDW Coeff of [place]cha 12.7, Plt Count 209, MPV 9.0, Immature Gran % (Auto) 0.500, Neut % (Auto) 82.5 H, Lymph % (Auto) 6.9 L, [place] % (Auto) 8.3, Eos % (Auto) 1.6, Baso % (Auto) 0.2, Absolute Neuts (auto) 4.6, Absolute Lymphs (auto) 0.38 L, Nucleated RBC % 0, Differential Comment SCANNED 09/11/20 18:05: Sodium 131 L, Potassium 4.5, Chloride 98, Carbon Dioxide 25.0, Anion Gap 8, BUN 29 H, Creatinine 2.10 H, Estim Creat Clear Calc 31.38, Est GFR (MDRD) Af Amer 40 L, Est GFR (MDRD) Non-Af 33 L, BUN/Creatinine Ratio 13.8, Glucose 192 H, Calcium 8.8, Total Bilirubin 0.70, AST 15, ALT 25, Alkaline Phosphatase 79, Total Protein 7.1, Albumin 2.8 L, Globulin 4.3 H, Albumin/Globulin Ratio 0.7 L, Lipase 50 L 09/11/20 18:20: Urine Color Yellow, Urine Clarity Sl. Cloudy, Urine pH 6.0, Ur Specific [place] 1.015, Urine Protein 100 H, Urine Glucose (UA) Normal, Urine Ketones Negative, Urine Occult Blood 25 H, Urine Nitrite Positive H, Urine Bilirubin 1 H, Urine Urobilinogen 1 H, Ur Leukocyte Esterase 500 H, Urine RBC 0-5 SEEN, Urine WBC 25-50 SEEN, Ur Squamous Epith Cells 5-10 SEEN, Amorphous Sediment 1+ PHOS, Urine Bacteria 1+, Urine Mucus 0 SEEN 09/12/20 05:26: WBC 2.9 L, RBC 3.56 L, Hgb 11.2 L, Hct 33.5 L, MCV 94.1 H, MCH 31.5, MCHC 33.4, RDW Std Deviation 44.5 H, RDW Coeff of [place] 12.8, Plt Count 199, MPV 8.9, Immature Gran % (Auto) 0.300, Neut % (Auto) 72.5 H, Lymph % (Auto) 10.8 L, [place] % (Auto) 13.6 H, Eos % (Auto) 2.8, Baso % (Auto) 0.0, Absolute Neuts (auto) 2.1, Absolute Lymphs (auto) 0.31 L, Nucleated RBC % 0, Differential Comment SCANNED, Diff Path Review February09/12/20 05:26: Sodium 133 L, Potassium 4.3, Chloride 102, Carbon Dioxide 24.0, Anion Gap 7, BUN 28 H, Creatinine 1.80 H, Estim Creat Clear Calc 36.60, Est GFR (MDRD) Af Amer 47 L, Est GFR (MDRD) Non-Af 39 L, BUN/Creatinine Ratio 15.6, Glucose 178 H, Calcium 8.2 L Current Medications Dextrose (Dextrose 50%-Water 25 Gm/50 Ml Disp.Syrin) 0 gm IV X1 PRN; Protocol PRN Reason: Hypoglycemia Glucagon (Glucagon 1 Mg/Ml Syringe) 1 mg IM .X1 PRN PRN Reason: Hypoglycemia Hydralazine HCl (Hydralazine 20 Mg/Ml Vial) 5 mg IV Q6H PRN PRN PRN Reason: SBP>160 or DBP > 120 Hydromorphone HCl (Hydromorphone 0.5 Mg/0.5 Ml Syringe) 0.5 mg IV Q3H PRN PRN PRN Reason: Pain Score 6-10 Sodium Chloride () 1,000 mls @ 75 mls/hr IV .[id number] ONOFRE Last Infusion: 09/12/20 09:27 Dose: 0 mls/hr Documented by: Ceftriaxone Sodium (Rocephin) 1 gm in 50 mls @ 100 mls/hr IV Q24H ONOFRE Pantoprazole Sodium 40 mg/ (Sodium Chloride) 110 mls @ 330 mls/hr IV Q24 ONOFRE Last Admin: 09/12/20 09:27 Dose: 330 mls/hr Documented by: Insulin Human Lispro (Insulin Lispro 100 Unit/Ml Insuln.Pen) 0 unit SC Q6 ONOFRE; Protocol Last Admin: 09/12/20 06:01 Dose: 1 units Documented by: Ondansetron HCl (Ondansetron 4 Mg/2 Ml Vial) 4 mg IV Q8H PRN PRN PRN Reason: NAUSEA/VOMITING Prochlorperazine Edisylate (Prochlorperazine 10 Mg/2 Ml Vial) 5 mg IV Q4H PRN PRN PRN Reason: Breakthrough nausea/vomiting Sodium Chloride (0.9% Saline Lock 10 Ml Syringe) 10 - 40 ml IV UD PRN PRN Reason: SALINE FLUSH Last Admin: 09/12/20 08:23 Dose: 10 ml Documented by: Assessment/Plan All Active Problems UTI (urinary tract infection) (Acute) SBO (small bowel obstruction) (Acute) KRISTIN (acute kidney injury) (Acute) I have been consulted in conjunction with Dr. Stokes. He will independently evaluate this patient. Impression: Small bowel obstruction. Parastomal hernia. History of bladder cancer invading rectum. Creation of ileal conduit and colostomy. Plan: I have discussed this patient with Dr. Stokes. Patient with significant amount of abdominal pain not well controlled with medications or NG tube placement. Due to patient's extensive/complicated surgical history and medical history, patient would benefit from transfer to [facility] for possible surgical intervention where his surgeon is located at. Patient has had the opportunity to ask and have questions answered. Patient verbally understands and agrees with the plan. Thank you for allowing us to participate in this patient's care. Office Visits / Consults: [id number] IP Consult L3
[2020-09-12] MEDS: HYDROmorphone 0.5 MG/0.5 ML SYRINGE IV ×2 (11:47→16:44)
[2020-09-12 12:00] VITALS: BP 135/62; PULSE 93; RESP 16; TEMP 37.2; O2SAT 93
[2020-09-12 12:10] LABS: Bedside Glucose 148 mg/dL (70-110)
[2020-09-12 13:43] LABS: Pathologist Review Reviewed
--- NOTE | 2020-09-12 14:37 | PCM.DC.SUM ---
Discharge Date and Diagnosis - Problem List Patient Problems: Active and Suspected Problems UTI (urinary tract infection) (Acute) SBO (small bowel obstruction) (Acute) KRISTIN (acute kidney injury) (Acute) Date of Admission: 09/11/20 Date of Discharge: 09/12/20 - Primary Discharge Diagnosis Acute Problems: Active Problems UTI (urinary tract infection) (Acute) SBO (small bowel obstruction) (Acute) KRISTIN (acute kidney injury) (Acute) - Secondary Discharge Diagnosis Chronic Problems: Chronic Problems Debility (Chronic) Bladder cancer (Chronic) Bile duct injury (Chronic) Diabetes mellitus (Chronic) Hypertension (Chronic) Gross hematuria (Chronic) GERD (gastroesophageal reflux disease) (Chronic) Chronic kidney disease (Chronic) Hospital Course and Treatment Imaging Results: Clinical Impression(s) from Imaging Studies Abdomen/Pelvis CT 09/11/20 17:40 IMPRESSION: 1. Diffuse distention of small bowel loops without visualized transition zone. There is mild distention of the proximal colon as well. Small bowel obstruction versus ileus. 2. Resolution of large fluid collection in the right pelvis noted on the previous examination. 3. No other major interval change. Electronically Signed: Uziel Vasquez DO at 20:05 EST Tel [phone], Service support , KUB X-Ray 09/11/20 22:30 IMPRESSION: Gastric tube in place. Dilated small bowel partially visualized, better evaluated on previous CT. at 2245 Reported and signed by: Atiya Hough MD Electronically Signed: Atiya Hough MD at 22:45 EST Tel , Service support , Operations: None Procedures: None Summary of Care Provided: The patient is a 79 year old M Vy with a 3-day history of abdominal pain. Patient had a CAT scan that showed a small bowel stricture versus ileus. Patient still having significant pain. Patient has had extensive surgical history. The concern was given his extensive surgery that he be best suited at the facility where his surgery was performed. I reached out to [facility] and patient was accepted by the surgical physician. Patient will be transferred there once a bed is available. No emergent surgery is necessary at this point in time but the concern is, given the bed shortage to facilitate transfer soon as possible in case he were to require surgery emergently. [] Patient Problems: Active and Suspected Problems UTI (urinary tract infection) (Acute) SBO (small bowel obstruction) (Acute) KRISTIN (acute kidney injury) (Acute) - Physical Exam Vitals/I&O's: Vital Signs Temp Pulse Resp BP Pulse Ox 37.2 C 93 16 135/62 H 93 09/12/20 12:00 09/12/20 12:00 09/12/20 12:00 09/12/20 12:00 09/12/20 12:00 Oxygen Delivery Method Room Air Weight: 77.9 kg Body Mass Index (BMI) 23.9 Intake and Output for Last 24 Hours 09/10/20 09/11/20 09/12/20 23:59 23:59 23:59 Intake Total 2049 / 2049 1441.25 / 1441.25 Output Total 1340 / 1340 Balance 2049 101.25 / 101.25 Microbiology Past 72 Hours 09/11/20 18:20 Urine, Clean Catch Urine Culture - Preliminary Presumptive E. coli Laboratory Results 09/11/20 18:05: WBC 5.5, RBC 3.73 L, Hgb 11.7 L, Hct 35.1 L, MCV 94.1 H, MCH 31.4, MCHC 33.3, RDW Std Deviation 43.9, RDW Coeff of Concha 12.7, Plt Count 209, MPV 9.0, Immature Gran % (Auto) 0.500, Neut % (Auto) 82.5 H, Lymph % (Auto) 6.9 L, [place] % (Auto) 8.3, Eos % (Auto) 1.6, Baso % (Auto) 0.2, Absolute Neuts (auto) 4.6, Absolute Lymphs (auto) 0.38 L, Nucleated RBC % 0, Differential Comment SCANNED 09/11/20 18:05: Sodium 131 L, Potassium 4.5, Chloride 98, Carbon Dioxide 25.0, Anion Gap 8, BUN 29 H, Creatinine 2.10 H, Estim Creat Clear Calc 31.38, Est GFR (MDRD) Af Amer 40 L, Est GFR (MDRD) Non-Af 33 L, BUN/Creatinine Ratio 13.8, Glucose 192 H, Calcium 8.8, Total Bilirubin 0.70, AST 15, ALT 25, Alkaline Phosphatase 79, Total Protein 7.1, Albumin 2.8 L, Globulin 4.3 H, Albumin/Globulin Ratio 0.7 L, Lipase 50 L 09/11/20 18:20: Urine Color Yellow, Urine Clarity Sl. Cloudy, Urine pH 6.0, Ur Specific [place] 1.015, Urine Protein 100 H, Urine Glucose (UA) Normal, Urine Ketones Negative, Urine Occult Blood 25 H, Urine Nitrite Positive H, Urine Bilirubin 1 H, Urine Urobilinogen 1 H, Ur Leukocyte Esterase 500 H, Urine RBC 0-5 SEEN, Urine WBC 25-50 SEEN, Ur Squamous Epith Cells 5-10 SEEN, Amorphous Sediment 1+ PHOS, Urine Bacteria 1+, Urine Mucus 0 SEEN 09/12/20 05:26: WBC 2.9 L, RBC 3.56 L, Hgb 11.2 L, Hct 33.5 L, MCV 94.1 H, MCH 31.5, MCHC 33.4, RDW Std Deviation 44.5 H, RDW Coeff of Concha 12.8, Plt Count 199, MPV 8.9, Immature Gran % (Auto) 0.300, Neut % (Auto) 72.5 H, Lymph % (Auto) 10.8 L, [place] % (Auto) 13.6 H, Eos % (Auto) 2.8, Baso % (Auto) 0.0, Absolute Neuts (auto) 2.1, Absolute Lymphs (auto) 0.31 L, Nucleated RBC % 0, Differential Comment SCANNED, Diff Path Review Reviewed 09/12/20 05:26: Sodium 133 L, Potassium 4.3, Chloride 102, Carbon Dioxide 24.0, Anion Gap 7, BUN 28 H, Creatinine 1.80 H, Estim Creat Clear Calc 36.60, Est GFR (MDRD) Af Amer 47 L, Est GFR (MDRD) Non-Af 39 L, BUN/Creatinine Ratio 15.6, Glucose 178 H, Calcium 8.2 L 09/12/20 12:05: POC Glucose 148 H Current Medications Dextrose (Dextrose 50%-Water 25 Gm/50 Ml Disp.Syrin) 0 gm IV X1 PRN; Protocol PRN Reason: Hypoglycemia Glucagon (Glucagon 1 Mg/Ml Syringe) 1 mg IM .X1 PRN PRN Reason: Hypoglycemia Hydralazine HCl (Hydralazine 20 Mg/Ml Vial) 5 mg IV Q6H PRN PRN PRN Reason: SBP>160 or DBP > 120 Hydromorphone HCl (Hydromorphone 0.5 Mg/0.5 Ml Syringe) 0.5 mg IV Q3H PRN PRN PRN Reason: Pain Score 6-10 Last Admin: 09/12/20 11:47 Dose: 0.5 mg Documented by: Sodium Chloride () 1,000 mls @ 75 mls/hr IV .[id number] ONOFRE Last Admin: 09/12/20 13:24 Dose: 75 mls/hr Documented by: Ceftriaxone Sodium (Rocephin) 1 gm in 50 mls @ 100 mls/hr IV Q24H ONOFRE Pantoprazole Sodium 40 mg/ (Sodium Chloride) 110 mls @ 330 mls/hr IV Q24 ONOFRE Last Infusion: 09/12/20 09:47 Dose: Infused Documented by: Insulin Human Lispro (Insulin Lispro 100 Unit/Ml Insuln.Pen) 0 unit SC Q6 ONOFRE; Protocol Last Admin: 09/12/20 12:06 Dose: Not Given Documented by: Ondansetron HCl (Ondansetron 4 Mg/2 Ml Vial) 4 mg IV Q8H PRN PRN PRN Reason: NAUSEA/VOMITING Prochlorperazine Edisylate (Prochlorperazine 10 Mg/2 Ml Vial) 5 mg IV Q4H PRN PRN PRN Reason: Breakthrough nausea/vomiting Sodium Chloride (0.9% Saline Lock 10 Ml Syringe) 10 - 40 ml IV UD PRN PRN Reason: SALINE FLUSH Last Admin: 09/12/20 11:47 Dose: 10 ml Documented by: Discharge Diet: - - NPO Home Medications: Medications to take at Discharge Metoprolol Succinate [Toprol Xl] 25 mg PO DAILY 06/11/18 Omeprazole 40 mg PO DAILY 06/11/18 metFORMIN HCl [Glucophage] 500 mg PO BIDCM 06/11/18 Amlodipine [Norvasc] 10 mg PO DAILY 09/30/19 Cyanocobalamin (Vitamin B-12) [Vitamin B-12] 1,000 mcg PO DAILY 09/30/19 Rosuvastatin Calcium 5 mg PO DAILY 09/30/19 Polyethylene Glycol 3350 [Miralax] 17 gm PO DAILY 10/21/19 Docusate Sodium [Colace] 100 mg PO DAILY 11/12/19 Magnesium 2 tab PO BID 09/11/20 Primary Care Physician: Franco Shin MD [Primary Care Provider] - Minutes spent on discharge:: 50 Patient Condition:: Stable Medical Necessity - Tobacco Use Smoking Status: Former smoker Meaningful Use Info Meaningful Use Diagnoses (Choose all that apply): None applicable Inpatient E&M: 78604 Disch Hosp
[2020-09-12 16:41] VITALS: BP 137/60; PULSE 96; RESP 18; TEMP 37.2; O2SAT 97
--- NOTE | 2020-09-12 17:02 | NURSING ---
[facility] CALLED, STATES IT DOES NOT LOOK LIKE THEY WILL HAVE A BED AVAILABLE TONIGHT AND THEY WILL WORK ON IT TOMORROW. DR TEJEDA INFORMED.
[2020-09-12 19:36] LABS: Bedside Glucose 138 mg/dL (70-110)
[2020-09-12 21:10] LABS: Bedside Glucose 201 mg/dL (70-110)
[2020-09-12] MEDS: Ceftriaxone 1 GM/50 ML BAG IV (21:46)
[2020-09-12 21:55] VITALS: BP 145/75; PULSE 104; RESP 18; TEMP 36.9; O2SAT 94
[2020-09-13 00:15] LABS: Bedside Glucose 149 mg/dL (70-110)
[2020-09-13] MEDS: 0.9% Normal Saline 1,000 ML 75 ML IV ×2 (02:16→14:53)
[2020-09-13 03:13] VITALS: BP 138/74; PULSE 99; RESP 20; TEMP 37.1; O2SAT 93
--- NOTE | 2020-09-13 07:41 | PCS.PANDOC ---
PANDEMIC DOCUMENTATION INITIATED: Date: 09/11/20 Time: 1500
[2020-09-13 07:49] LABS: Absolute Lymphocyte Count 0.35 X10^3/uL (0.83-4.51); Absolute Neutrophil Count 2.4 X10^3/uL (2.0-7.7); Differential Indicated SCAN CRITERIA MET; Eosinophil# 0.07 X10^3/uL; Eosinophils% 2.2 % (0-5); Hematocrit 30.4 % (40-54); Lymphocyte # 0.35 X10^3/ul (4.0); Lymphocyte % 10.9 % (19-41); Mean Corp Hgb Conc 32.9 g/dL (32-36); Mean Corpuscular Hgb 31.3 pg (27.0-32.0); Mean Corpuscular Volume 95.3 fL (80-94); Monocyte% 12.5 % (0-10); NRBC Flagged by Analyzer 0 % (0-5); Neutrophil # 2.37 X10^3/uL (2.7-7.7); Neutrophil % 74.1 % (47-70); POSITIVE DIFFERENTIAL YES; Platelet Count 202 K/mm3 (150-450); RBC Distribution Width CV 12.8 % (11.6-14.6); RBC Distribution Width SD 45.1 fl (35.1-43.9); Red Blood Count 3.19 M/mm3 (4.6-6.2); White Blood Count 3.2 K/mm3 (4.4-11.0)
[2020-09-13 08:20] VITALS: BP 145/67; PULSE 106; RESP 18; TEMP 36.7; O2SAT 95
[2020-09-13 08:21] LABS: ALB/GLOB Ratio 0.6 RATIO (0.9-2.4); AST(SGOT) 9 U/L (15-37); Alanine Aminotransfer ALT/SGPT 22 U/L (16-61); Albumin, Serum 2.4 g/dL (3.2-5.0); Alkaline Phosphatase 63 U/L (45-117); Anion Gap 9 (5-15); BUN 24 mg/dL (7-18); BUN/Creat Ratio 14.8 RATIO (10-20); Calcium,Total 8.1 mg/dL (8.5-10.1); Chloride 109 mmol/L (98-107); Creatinine, Serum 1.62 mg/dL (0.70-1.30); EST Glomerular Filtration Rate 44 mL/min (>60); Est Glom Filt Rate - Afr Amer 53 mL/min (>60); Estimated Creatinine Clearance 40.67 ml/min; Globulin 3.7 g/dL (2.2-4.2); Glucose 123 mg/dL (74-106); Potassium 4.2 mmol/L (3.5-5.1); Protein, Total 6.1 g/dL (6.4-8.2); Sodium Level 141 mmol/L (136-145)
--- NOTE | 2020-09-13 08:52 | PN.SURG_ITS ---
Patient Problems: Active and Suspected Problems UTI (urinary tract infection) (Acute) SBO (small bowel obstruction) (Acute) KRISTIN (acute kidney injury) (Acute) Subjective: Patient evaluated resting comfortably in bed. He notes intermittent discomfort. He states the pain has improved since yesterday. Not as painful. He notes liquidy stool output, light brown. He notes feeling hungry. NG output was 590 cc yesterday and 200 cc so far today. - Physical Exam Vitals/I&O's: Vital Signs Temp Pulse Resp BP Pulse Ox 98.7 F 99 20 H 138/74 H 93 09/13/20 03:13 09/13/20 03:13 09/13/20 03:13 09/13/20 03:13 09/13/20 03:13 Oxygen Delivery Method Room Air Weight: 171 lb 11.841 oz Body Mass Index (BMI) 23.9 Intake and Output for Last 24 Hours 09/11/20 09/12/20 09/13/20 23:59 23:59 23:59 Intake Total 2049 1971.25 / 1971.25 1205 / 1205 Output Total 2390 / 2390 725 / 725 Balance 2049 -418.75 / -418.75 480 / 480 General: Alert, Oriented x3, Cooperative Abdomen: Bowel Sounds Present, Soft, Tender - midline at previous incision, - - ostomy with light brown liquid. urosotomy with medium yellow urine Microbiology Past 72 Hours 09/11/20 18:20 Urine, Clean Catch Urine Culture - Final Presumptive E. coli Laboratory Results 09/12/20 05:26: Diff Path Review Reviewed 09/12/20 05:58: POC Glucose 201 H 09/12/20 12:05: POC Glucose 148 H 09/12/20 19:30: POC Glucose 138 H 09/12/20 23:59: POC Glucose 149 H 09/13/20 07:12: WBC 3.2 L, RBC 3.19 L, Hgb 10.0 L, Hct 30.4 L, MCV 95.3 H, MCH 31.3, MCHC 32.9, RDW Std Deviation 45.1 H, RDW Coeff of Concha 12.8, Plt Count 202, MPV 9.0, Immature Gran % (Auto) 0.300, Neut % (Auto) 74.1 H, Lymph % (Auto) 10.9 L, [place] % (Auto) 12.5 H, Eos % (Auto) 2.2, Baso % (Auto) 0.0, Absolute Neuts (auto) 2.4, Absolute Lymphs (auto) 0.35 L, Nucleated RBC % 0, Differential Comment COMMENT, Diff Path Review February foll 09/13/20 07:12: Sodium 141, Potassium 4.2, Chloride 109 H, Carbon Dioxide 23.0, Anion Gap 9, BUN 24 H, Creatinine 1.62 H, Estim Creat Clear Calc 40.67, Est GFR (MDRD) Af Amer 53 L, Est GFR (MDRD) Non-Af 44 L, BUN/Creatinine Ratio 14.8, Glucose 123 H, Calcium 8.1 L, Total Bilirubin 0.30, AST 9 L, ALT 22, Alkaline Phosphatase 63, Total Protein 6.1 L, Albumin 2.4 L, Globulin 3.7, Albumin/Globulin Ratio 0.6 L Current Medications Dextrose (Dextrose 50%-Water 25 Gm/50 Ml Disp.Syrin) 0 gm IV X1 PRN; Protocol PRN Reason: Hypoglycemia Glucagon (Glucagon 1 Mg/Ml Syringe) 1 mg IM .X1 PRN PRN Reason: Hypoglycemia Hydralazine HCl (Hydralazine 20 Mg/Ml Vial) 5 mg IV Q6H PRN PRN PRN Reason: SBP>160 or DBP > 120 Hydromorphone HCl (Hydromorphone 0.5 Mg/0.5 Ml Syringe) 0.5 mg IV Q3H PRN PRN PRN Reason: Pain Score 6-10 Last Admin: 09/12/20 16:44 Dose: 0.5 mg Documented by: Sodium Chloride () 1,000 mls @ 75 mls/hr IV .[id number] [facility] Last Admin: 09/13/20 02:16 Dose: 75 mls/hr Documented by: Ceftriaxone Sodium (Rocephin) 1 gm in 50 mls @ 100 mls/hr IV Q24H [facility] Last Infusion: 09/12/20 22:25 Dose: Infused Documented by: Pantoprazole Sodium 40 mg/ (Sodium Chloride) 110 mls @ 330 mls/hr IV Q24 [facility] Last Admin: 09/13/20 08:14 Dose: 330 mls/hr Documented by: Insulin Human Lispro (Insulin Lispro 100 Unit/Ml Insuln.Pen) 0 unit SC Q6 ONOFRE; Protocol Last Admin: 09/13/20 06:08 Dose: Not Given Documented by: Ondansetron HCl (Ondansetron 4 Mg/2 Ml Vial) 4 mg IV Q8H PRN PRN PRN Reason: NAUSEA/VOMITING Prochlorperazine Edisylate (Prochlorperazine 10 Mg/2 Ml Vial) 5 mg IV Q4H PRN PRN PRN Reason: Breakthrough nausea/vomiting Sodium Chloride (0.9% Saline Lock 10 Ml Syringe) 10 - 40 ml IV UD PRN PRN Reason: SALINE FLUSH Last Admin: 09/12/20 16:44 Dose: 10 ml Documented by: Medical Necessity - Tobacco Use Smoking Status: Former smoker Assessment/Plan All Active Problems UTI (urinary tract infection) (Acute) SBO (small bowel obstruction) (Acute) KRISTIN (acute kidney injury) (Acute) I am following this patient in conjunction with Dr. Stokes. He will independently evaluate. Impression: Small bowel obstruction. Parastomal hernia. History of bladder cancer invading rectum. Creation of ileal conduit and colostomy. Abdominal pain much improved and abdomen much soft than yesterday Continue NG tube and sips and chips No air in the bag Awaiting bed from [facility] We will continue to monitor this patient Inpatient E&M: [id number] [facility] L1
--- NOTE | 2020-09-13 08:56 | NURSING ---
Ostomy appliance remains intact at this time. pt still awaiting bed at [facility].
--- NOTE | 2020-09-13 09:14 | PCM.PN.HOSP ---
Patient Problems: Active and Suspected Problems UTI (urinary tract infection) (Acute) SBO (small bowel obstruction) (Acute) KRISTIN (acute kidney injury) (Acute) Reason for Visit: SBO Subjective: Less pain today. No flatulence. Vitals/I&O's: Vital Signs Temp Pulse Resp BP Pulse Ox 37.1 C 99 20 H 138/74 H 93 09/13/20 03:13 09/13/20 03:13 09/13/20 03:13 09/13/20 03:13 09/13/20 03:13 Oxygen Delivery Method Room Air Weight: 77.9 kg Body Mass Index (BMI) 23.9 Intake and Output for Last 24 Hours 09/11/20 09/12/20 09/13/20 23:59 23:59 23:59 Intake Total 2049 1971.25 / 1970. 1315 / 1315 Output Total 239 / 2390 725 / 725 Balance 2049 -418.75 / -418.75 590 / 590 General: Alert, No apparent distress HEENT: Atraumatic, Normocephalic Oral: Moist Mucosa, No Gingival or Mucosal Lesions/ Ulcerations Neck: No Nodes, Thyroid Normal Size and Texture Lungs: Clear to auscultation, Normal air movement, No rhonchi, No wheeze Cardiovascular: Regular rate, Regular Rhythm, Normal S1, Normal S2 Abdomen: Bowel Sounds Present, Soft, Non Tender, Non-Distended, No Hepato-splenomegaly Extremities: No edema, No Calf Tenderness Skin: No rashes, No breakdown Psych/Mental Status: Normal Affect, Appropriate Microbiology Past 72 Hours 09/11/20 18:20 Urine, Clean Catch Urine Culture - Final Presumptive E. coli Laboratory Results 09/12/20 05:26: Diff Path Review Reviewed 09/12/20 05:58: POC Glucose 201 H 09/12/20 12:05: POC Glucose 148 H 09/12/20 19:30: POC Glucose 138 H 09/12/20 23:59: POC Glucose 149 H 09/13/20 07:12: WBC 3.2 L, RBC 3.19 L, Hgb 10.0 L, Hct 30.4 L, MCV 95.3 H, MCH 31.3, MCHC 32.9, RDW Std Deviation 45.1 H, RDW Coeff of [place]cha 12.8, Plt Count 202, MPV 9.0, Immature Gran % (Auto) 0.300, Neut % (Auto) 74.1 H, Lymph % (Auto) 10.9 L, [place] % (Auto) 12.5 H, Eos % (Auto) 2.2, Baso % (Auto) 0.0, Absolute Neuts (auto) 2.4, Absolute Lymphs (auto) 0.35 L, Nucleated RBC % 0, Differential Comment COMMENT, Diff Path Review February09/13/20 07:12: Sodium 141, Potassium 4.2, Chloride 109 H, Carbon Dioxide 23.0, Anion Gap 9, BUN 24 H, Creatinine 1.62 H, Estim Creat Clear Calc 40.67, Est GFR (MDRD) Af Amer 53 L, Est GFR (MDRD) Non-Af 44 L, BUN/Creatinine Ratio 14.8, Glucose 123 H, Calcium 8.1 L, Total Bilirubin 0.30, AST 9 L, ALT 22, Alkaline Phosphatase 63, Total Protein 6.1 L, Albumin 2.4 L, Globulin 3.7, Albumin/Globulin Ratio 0.6 L Current Medications Dextrose (Dextrose 50%-Water 25 Gm/50 Ml Disp.Syrin) 0 gm IV X1 PRN; Protocol PRN Reason: Hypoglycemia Glucagon (Glucagon 1 Mg/Ml Syringe) 1 mg IM .X1 PRN PRN Reason: Hypoglycemia Hydralazine HCl (Hydralazine 20 Mg/Ml Vial) 5 mg IV Q6H PRN PRN PRN Reason: SBP>160 or DBP > 120 Hydromorphone HCl (Hydromorphone 0.5 Mg/0.5 Ml Syringe) 0.5 mg IV Q3H PRN PRN PRN Reason: Pain Score 6-10 Last Admin: 09/12/20 16:44 Dose: 0.5 mg Documented by: Sodium Chloride () 1,000 mls @ 75 mls/hr IV .[id number] [facility] Last Admin: 09/13/20 02:16 Dose: 75 mls/hr Documented by: Ceftriaxone Sodium (Rocephin) 1 gm in 50 mls @ 100 mls/hr IV Q24H [facility] Last Infusion: 09/12/20 22:25 Dose: Infused Documented by: Pantoprazole Sodium 40 mg/ (Sodium Chloride) 110 mls @ 330 mls/hr IV Q24 [facility] Last Infusion: 09/13/20 08:34 Dose: Infused Documented by: Insulin Human Lispro (Insulin Lispro 100 Unit/Ml Insuln.Pen) 0 unit SC Q6 [facility]; Protocol Last Admin: 09/13/20 06:08 Dose: Not Given Documented by: Metoprolol Succinate (Metoprolol(Xl)Succ 25 Mg Tablet) 25 mg PO DAILY [facility] Ondansetron HCl (Ondansetron 4 Mg/2 Ml Vial) 4 mg IV Q8H PRN PRN PRN Reason: NAUSEA/VOMITING Prochlorperazine Edisylate (Prochlorperazine 10 Mg/2 Ml Vial) 5 mg IV Q4H PRN PRN PRN Reason: Breakthrough nausea/vomiting Sodium Chloride (0.9% Saline Lock 10 Ml Syringe) 10 - 40 ml IV UD PRN PRN Reason: SALINE FLUSH Last Admin: 09/12/20 16:44 Dose: 10 ml Documented by: Medical Necessity - Tobacco Use Smoking Status: Former smoker Assessment/Plan All Active Problems UTI (urinary tract infection) (Acute) SBO (small bowel obstruction) (Acute) KRISTIN (acute kidney injury) (Acute) 1. Small bowel obstruction No obvious transition point noted on CAT scan. Report mentioned this could be small bowel traction versus ileus. Symptoms have been persistent for about 3 days. Patient is very uncomfortable. Concern is that this can be about obstruction could progress. General surgery, at this institution, feels the patient be best suited transfer if surgery were necessary. I have reached out to [facility] were patient has had his prior surgeries about potential transfer. Awaiting on phone call back. Continue with NG tube to intermittent suction Continue n.p.o. 2. Abnormal urinalysis Only 25-50 white blood cells and +1 bacteria. Not convinced the patient does have urinary tract infection but will continue with ceftriaxone for now. Await final culture results if greater than 100,000 coliform units of up to organism then would treat, however if it is negative or showing multiple organisms and would discontinue as it could be contaminant. 3. Acute kidney injury Creatinine up to 2.1. Baseline is around 1.5. Trending down slightly. Continue with IV fluid. 4. Diabetes mellitus type 2: Fair control at this time Sliding scale insulin 5. VTE prophylaxis: SCDs ordered. Awaiting on transfer. Inpatient E&M: [id number] Subs Hosp L2
--- NOTE | 2020-09-13 09:30 | NURSING ---
aware per [facility] transfer center no bed available at this time
[2020-09-13 10:43] VITALS: PULSE 106
[2020-09-13] MEDS: Metoprolol(XL)Succ 25 MG Tablet PO (10:43)
[2020-09-13 11:50] LABS: Bedside Glucose 113 mg/dL (70-110)
[2020-09-13 14:06] LABS: Bedside Glucose 128 mg/dL (70-110)
[2020-09-13 14:50] VITALS: BP 130/65; PULSE 108; RESP 18; TEMP 36.7; O2SAT 98
--- NOTE | 2020-09-13 15:15 | NURSING ---
[facility] transfer line called for update on patients status. this RN just spoke with surgeon. at this time, it is their intention to have patient transfer just as precaution in case patient would need surgical intervention. per [facility], no bed available at this time. will keep us updated. patient updated on POC.
[2020-09-13] MEDS: HYDROmorphone 0.5 MG/0.5 ML SYRINGE IV ×2 (17:53→21:26)
[2020-09-13 17:56] LABS: Bedside Glucose 106 mg/dL (70-110)
[2020-09-13] MEDS: Ceftriaxone 1 GM/50 ML BAG IV (20:28)
[2020-09-13 21:24] VITALS: BP 144/63; PULSE 93; RESP 20; TEMP 37.1; O2SAT 97
[2020-09-13 21:35] LABS: Bedside Glucose 110 mg/dL (70-110)
[2020-09-14 12:38] LABS: Pathologist Review Reviewed
== END 2020-09-13 21:41 | disposition short-term general hospital (02) | DRG 389 ==
LOC: ED 18:01 → MS3 22:28
PROVIDERS: Admitting Provider Hospitalist; Emergency Provider Student in an Organized Health Care Education/Training Program; PCP Family Medicine
DX: K56.609 Unspecified intestinal obstruction, unspecified as to partial versus complete obstruction (principal); N39.0 Urinary tract infection, site not specified; N17.9 Acute kidney failure, unspecified; I82.409 Acute embolism and thrombosis of unspecified deep veins of unspecified lower extremity; K21.9 Gastro-esophageal reflux disease without esophagitis; N18.30 Chronic kidney disease, stage 3 unspecified; E11.22 Type 2 diabetes mellitus with diabetic chronic kidney disease; K43.5 Parastomal hernia without obstruction or gangrene; I12.9 Hypertensive chronic kidney disease with stage 1 through stage 4 chronic kidney disease, or unspecified chronic kidney disease; Z85.51 Personal history of malignant neoplasm of bladder; Z87.891 Personal history of nicotine dependence; Z93.3 Colostomy status
CPT/HCPCS: 36415; 74018; 74176; 80048; 80053; 81001; 82962; 83690; 85025; 87086; 87088; 87186; 94640; 97802; 99285; J7030; A4216; J2405

== ENCOUNTER → 2020-10-26 07:39 | Outpatient (CLI) | payer MEDICARE, SELFPAY ==
[2020-09-11 23:38] VITALS: BMI 23.9
[2020-10-26 08:17] VITALS: BP 127/63; PULSE 54; RESP 16; TEMP 35.7; O2SAT 100; BMI 23.9
[2020-10-26 08:43] VITALS: BP 124/52; PULSE 54; RESP 16; TEMP 35.8
[2020-10-26 10:27] VITALS: BP 125/56; PULSE 60; RESP 16; TEMP 35.7; O2SAT 100
[2020-10-26] MEDS: Furosemide 20 MG/2 ML VIAL IV (10:50)
[2020-10-26 11:20] VITALS: BP 128/54; PULSE 61; RESP 16; TEMP 35.7
[2020-10-26 12:20] VITALS: BP 132/65; PULSE 70; RESP 16; TEMP 36
[2020-10-26 13:20] VITALS: BP 120/64; PULSE 73; RESP 18; TEMP 35.7; O2SAT 99
== END ==
PROVIDERS: PCP Family Medicine; Referring Provider Internal Medicine Hematology & Oncology; Visit Provider Internal Medicine Hematology & Oncology
DX: D64.81 Anemia due to antineoplastic chemotherapy (principal)
CPT/HCPCS: 36430; 86850; 86900; 86901; 86920; 86922; J7040; P9016; A4216; J1940

== ENCOUNTER 2020-11-02 16:36 | Emergency (ER) | payer MEDICARE, SELFPAY ==
[2020-10-26 08:17] VITALS: BMI 23.9
[2020-11-02 16:36] VITALS: BP 128/65; PULSE 107; RESP 20; TEMP 36.9; O2SAT 97; BMI 23.4
--- NOTE | 2020-11-02 16:39 | ED.RN ---
JORDAN [phone]
--- NOTE | 2020-11-02 17:20 | EKG12_ITS ---
Test Reason : Blood Pressure : / mmHG Vent. Rate : 092 BPM Atrial Rate : 092 BPM P-R Int : 164 ms QRS Dur : 090 ms QT Int : 338 ms P-R-T Axes : 054 042 072 degrees QTc Int : 417 ms Normal sinus rhythm with sinus arrhythmia Normal ECG Confirmed by ROOSEVELT FRANKS, LINDSEY ([id number]), features editor SHERRI QUILES ([id number]) on 11/05/2020 12:17:05 PM Referred By: YONATHAN Confirmed By:BRIAN ALBERT MD
--- NOTE | 2020-11-02 17:23 | ED.VIS.GEN ---
History of Present Illness Chief Complaint: Shortness of Breath Informant: Patient Narrative: 80-year-old male with history of metastatic bladder cancer on chemotherapy presenting with shortness of breath for 2 weeks. Patient is on Eliquis for history of DVT currently. He denies chest pain. He denies cough, fever, chills, change in taste or smell. Patient states his primary care physician did EKGs in office which he was concerned he had new onset A. fib. Patient also states that he stopped his Eliquis this morning because he has thrombocytopenia and has bruising. Patient also sees Dr. Sr. - Past Medical History (1) Chronic kidney disease Status: Chronic (2) Diabetes mellitus Status: Chronic Past Medical History - Allergies and Home Meds Allergies/Adverse Reactions: Allergies No Known Allergies Allergy (Verified 11/02/20 16:39) Primary Care Physician: Franco Shin MD [Primary Care Provider] - Prior records reviewed: Yes Past Medical History: - - Anesthetic bladder cancer, GERD, hypertension Surgical History: cataract, cholecystectomy - bile duct injury., - - TURBT x 3, Exploratory laparotomy, hepatojejunostomy with wound vac, liver resection, DCS: A-10C [facility] Lives: Spouse/ Significant Other Smoking Status: Former smoker Alcohol: None Drugs: None - Family History Maternal Family History: Reports: Diabetes, Dementia Sibling Family History: Reports: COPD - Brother. Review of Systems General: Denies: Chills, Fever, Sweats Eyes: Denies: Visual changes - bilaterally, Diplopia ENT: Reports: -. Denies: Rhinorrhea, Sore throat Cardiovascular: Reports: Chest pain, Heart racing Respiratory: Reports: Dyspnea, Dyspnea on exertion. Denies: Cough Gastrointestinal: Denies: Abdominal pain, Nausea, Vomiting, Diarrhea, Melena, Hematochezia Genitourinary: Denies: Dysuria, Hematuria Musculoskeletal: Denies: Myalgias, Arthralgias Skin: Denies: Rash, Abscess Neurological: Denies: Headache, Parasthesia, Numbness Hematologic: Reports: Easy bruising. Denies: Easy bleeding Physical Exam Vital Signs/Narrative: Vital Signs Temp Pulse Resp BP Pulse Ox 11/02/20 16:36 98.5 F 107 H 20 H 128/65 H 97 Inital Vital Signs reviewed: Yes General: Well nourished, No Acute Distress Head: Normocephalic, Atraumatic Eyes: Perrl, EOMI. Negative for: Pale conjunctiva ENT: Moist mucous membranes, No rhinorrhea Cardiovascular: Regular rhythm, Tachycardia Respiratory: No distress, CTA bilaterally Extremities: Nontender, No edema Skin: Normal color, No rash Neurological: Alert, Oriented x3, Cranial nerves II-XII grossly intact Psychological: Normal affect, Normal Mood Diagnostic/Tx/Re-eval - Rhythm Strip Rhythm Strip: Sinus Rhythm Rate: 92 - EKG Initial EKG Interpretation: Sinus Rhythm, No Acute Injury Pattern, Sinus Arrythmia - Medical Decision Making 80-year-old male presenting for shortness of breath for the last 2 weeks. He was seen by his primary care provider who did an EKG in office which showed a sinus rhythm with arrhythmia. Patient does not have any chest pain. He has not had fever, chills, myalgias. Patient states he feels otherwise well. On arrival he had EKG which showed sinus rhythm with sinus arrhythmia without acute ischemic changes as interpreted by myself. Chest x-ray interpreted by myself shows no acute cardiopulmonary process and radiologist agree. Patient's lab work shows he has a leukocytosis of 17.5 thousand. He does have 10 bands. Patient does not appear dehydrated based on his lab work. He was given IV fluids. Analysis does show nitrites leukocytes and bacteria however patient has ileostomy. Dated leukocytosis I did give him Rocephin IV. On reevaluation his heart rate had normalized. His respiratory rate is slightly fast at 20-22 respirations per minute but he is not in any respiratory distress. Patient does have a significant thrombocytopenia at 49 but he states that last week it was 25 so this is improving. Patient states that he was on Eliquis up until this morning but his physician took him off of it because he was thrombocytopenic and having more bruising. Given that he had been taking his Eliquis I have low suspicion for pulmonary embolism. His troponin and BNP are also normal. After his work-up I did speak with Dr. Alonso who is on-call and he felt that if the patient was stable we could start him on antibiotics and send him home. If he feels bad he can always come back in the morning. Patient states that he feels absolutely fine at this point. Patient will be given Keflex for home. Urine culture was sent. Patient will follow up with hematology on Thursday to determine whether he needs to go back on Eliquis or not. Patient is amenable to this plan. Impression: 1. Leukocytosis 2. Urinary tract infection 3. Thrombocytopenia 4. Dyspnea ED Disposition - Plan for ED Patient: Disposition: Home or Assisted Living Instructions: ED Dyspnea, ED Bladder Infection, Male (Adult) Prescriptions: Cephalexin [Keflex] 500 mg PO Q12 #14 cap Prescription Printed Referrals: Franco Shin MD [Primary Care Provider] -
[2020-11-02 17:35] VITALS: BP 136/64; PULSE 107; RESP 29; TEMP 36.9; O2SAT 97
[2020-11-02 17:39] VITALS: O2SAT 98
[2020-11-02 17:44] LABS: Hematocrit 30.7 % (40-54); Hemoglobin 10.4 g/dL (13.0-16.5); Mean Corp Hgb Conc 33.9 g/dL (32-36); Mean Corpuscular Hgb 30.9 pg (27.0-32.0); Mean Corpuscular Volume 91.1 fL (80-94); Mean Platelet Vol. 10.6 fl (6.2-12.0); POSITIVE COUNT YES; POSITIVE MORPHOLOGY YES; RBC Distribution Width CV 14.6 % (11.6-14.6); RBC Distribution Width SD 47.9 fl (35.1-43.9); Red Blood Count 3.37 M/mm3 (4.6-6.2); White Blood Count 17.5 K/mm3 (4.4-11.0)
--- NOTE | 2020-11-02 17:45 | RAD_ITS ---
STUDY: X-RAY CHEST REASON FOR EXAM: Male, 80 years old. DYSPNEA X 3 WEEKS; CURRENTLY ON CHEMO FOR BLADDER CANCER TECHNIQUE: Single AP portable view of the chest. COMPARISON: 11/12/2019. FINDINGS: There is hyperinflation of the lungs consistent with chronic obstructive lung disease (COPD). No infiltrates or effusions. There is no demonstrated pleural abnormality. Normal size heart. Normal mediastinum and meghan. There is prominence of the pulmonary hilar arteries without peripheral pulmonary vascular congestion, suggesting pulmonary hypertension. Normal visualized aortic arch and descending thoracic aorta. Normal visualized thoracic spine. Normal visualized ribs, clavicles, and shoulders. There is no demonstrated abnormality of the visualized soft tissue structures of the upper abdomen. RAD/Chest 1 View (Portable) IMPRESSION: There are findings consistent with COPD. There is no evidence of acute chest disease. Electronically Signed: Anibal Razo MD at 18:21 EST , Service support ,
[2020-11-02 17:49] LABS: Differential Indicated MANUAL DIFF; Platelet Count 49 K/mm3 (150-450)
[2020-11-02 18:01] LABS: Anion Gap 7 (5-15); BUN 21 mg/dL (7-18); BUN/Creat Ratio 15.6 RATIO (10-20); Chloride 95 mmol/L (98-107); Creatinine, Serum 1.35 mg/dL (0.70-1.30); EST Glomerular Filtration Rate 54 mL/min (>60); Est Glom Filt Rate - Afr Amer 66 mL/min (>60); Estimated Creatinine Clearance 48.03 ml/min; Glucose 172 mg/dL (74-106); Potassium 4.3 mmol/L (3.5-5.1); Sodium Level 130 mmol/L (136-145)
[2020-11-02 18:21] VITALS: BP 140/74; PULSE 96; RESP 23; TEMP 36.7; O2SAT 96
[2020-11-02 18:23] LABS: Lymphocyte 13 % (19-41); Metamyelocyte 1 % (0-1); Monocyte 11 % (0-10); Myelocyte 3 (0-0); Neutrophil-Band 10 % (0-5); Nucleated Red Bld Cells,Manual 3 % (0-5); Total Cells Counted 100 (MANUAL DIFF)
[2020-11-02 18:24] LABS: Platelet Estimate MKD DEC (ADEQ)
[2020-11-02 18:25] LABS: Blast 2 % (0-0); Red Cell Morphology NORM C+C NORMAL (NORM C&C)
[2020-11-02 18:25] LABS: Mucous, Urine 0 SEEN /hpf (<or=2+); Red Blood Cells-Urine 0 SEEN /hpf (0-5); Squamous Epithelial Cells - UA 0 SEEN /hpf (0-5)
[2020-11-02 18:26] LABS: Neutrophil-Segmented 60 % (47-70)
[2020-11-02 18:27] LABS: Absolute Neutrophil Count 12.3 X10^3/uL (2.0-7.7)
[2020-11-02 18:28] LABS: Absolute Lymphocyte Count 2.28 X10^3/uL (0.83-4.51)
[2020-11-02 18:40] LABS: Color, Urine Yellow (Yellow); Glucose, Dipstick Normal (Normal); Ketone-Dipstick Negative (Negative); Leukocyte Esterase-Dipstick 100 /ul (Negative); Nitrite-Dipstick Positive (Negative); Occult Blood-Urine 25 /ul (Negative); Protein-Dipstick 30 mg/dl (Negative); Urine Bilirubin Dipstick Negative (Negative); Urine Clarity Clear (Clear); Urine Urobilinogen Normal (Normal)
[2020-11-02 18:48] LABS: White Blood Cells 5-10 SEEN /hpf (0-5)
[2020-11-02 18:49] LABS: Bacteria 1+ /hpf (None Seen)
[2020-11-02 19:23] VITALS: BP 135/64; PULSE 98; RESP 23; TEMP 36.6; O2SAT 98
[2020-11-02] MEDS: Ceftriaxone 1 GM/50 ML BAG IV (20:33)
[2020-11-05 11:44] LABS: Pathologist Review Reviewed
== END 2020-11-02 21:55 | disposition home or self-care (01) ==
PROVIDERS: Emergency Provider Student in an Organized Health Care Education/Training Program; PCP Family Medicine
DX: D72.829 Elevated white blood cell count, unspecified (principal); N39.0 Urinary tract infection, site not specified; D69.6 Thrombocytopenia, unspecified; R06.00 Dyspnea, unspecified; I12.9 Hypertensive chronic kidney disease with stage 1 through stage 4 chronic kidney disease, or unspecified chronic kidney disease; E11.22 Type 2 diabetes mellitus with diabetic chronic kidney disease; N18.9 Chronic kidney disease, unspecified; Z90.49 Acquired absence of other specified parts of digestive tract; Z87.891 Personal history of nicotine dependence; Z86.718 Personal history of other venous thrombosis and embolism; Z85.51 Personal history of malignant neoplasm of bladder; Z79.02 Long term (current) use of antithrombotics/antiplatelets; Z79.84 Long term (current) use of oral hypoglycemic drugs
CPT/HCPCS: 71045; 80048; 81001; 83880; 84484; 85025; 87077; 87086; 87088; 87186; 87635; 93005; 99284; A4216; U0002

== ENCOUNTER 2020-11-05 15:45 | Inpatient (IN) | payer MEDICARE, SELFPAY ==
[2020-11-05] VITALS (12 sets, daily range): BP systolic 93–122; BP diastolic 48–67; PULSE 91–128; RESP 18–28; TEMP 36.1–37.9; O2SAT 94–99; BMI 23.7; BMI 22.8
--- NOTE | 2020-11-05 16:04 | EKG12_ITS ---
Test Reason : SOB Blood Pressure : / mmHG Vent. Rate : 117 BPM Atrial Rate : 117 BPM P-R Int : 170 ms QRS Dur : 092 ms QT Int : 302 ms P-R-T Axes : 028 -12 057 degrees QTc Int : 421 ms Sinus tachycardia Otherwise normal ECG Confirmed by RIDDHI FRANKS, YANI ([id number]), visual effects editor EL ELLISON ([id number]) on 11/07/2020 1:25:34 PM Referred By: JELENA Confirmed By:YANI HANNON MD
--- NOTE | 2020-11-05 16:04 | CT_ITS ---
STUDY: CTA CHEST REASON FOR EXAM: Male, 80 years old. Shortness of breath x1 week RADIATION DOSAGE (If Supplied By Facility): CTDIvol = ( 11.50 ) mGy, DLP = ( 413.46 ) mGycm TECHNIQUE: The examination was performed with the intravenous administration of IV 75mL Isovue-300. Post-processing of the angiographic images was performed, with multiplanar reformation and 3D reconstruction. Individualized dose optimization techniques were used for this CT. COMPARISON: Previous plain films FINDINGS: Normal enhancement of the main pulmonary artery and right and left pulmonary arteries. Normal enhancement of the bilateral peripheral pulmonary arteries. There is no demonstrated pulmonary embolism. Normal thoracic aorta and visualized great vessels. There is no demonstrated aortic dissection. Normal heart and pericardium. There are calcifications of the coronary arteries. There are visualized mediastinal lymph nodes, which are within normal size limits, and with normal morphology. Normal hilar regions. There is peribronchial thickening. The lungs are hyper expanded, with flattening of the hemidiaphragms. Chronic interstitial changes in both lung echavarria with bleb formation in both upper lobes. There is dependent atelectasis but no superimposed acute pulmonary process Normal pleura. Normal chest wall structures. There are degenerative changes of thoracic spine. Normal visualized upper abdomen. CT/CTA Chest W/WO Contrast IMPRESSION: No demonstrated PE, or thoracic aortic aneurysm or dissection Underlying emphysema with chronic interstitial changes and dependent atelectasis but no superimposed acute pulmonary process Calcified coronary vessels Degenerative bony changes Electronically Signed: Jordin Shields MD at 18:30 EST , Service support ,
--- NOTE | 2020-11-05 16:18 | ED.VISSUMM ---
- ER Visit Summary Date of Service: 11/05/20 Chief Complaint: Shortness of breath History of Present Illness: The patient is a [address] Sr and Dr. Shin. He reports approximately 2 weeks ago he had the abrupt onset of shortness of breath. He states that it is severe at worst and currently. Is worsened by exertion. Is unchanged with laying flat. Is relieved by nothing. He denies any chest pain. No fever, chills, or cough. Patient reports that he had been on Eliquis for a DVT in his left leg 6-8 months ago. The Eliquis was stopped 3 days ago because he was bruising more than usual. Patient reports that he is on chemotherapy for metastatic bladder cancer. His last dose was 3 weeks ago. He has had thrombocytopenia as a result of this. Physical Examination: Vitals: Stable. Afebrile. General: Well-nourished and well-developed. Head: Normocephalic atraumatic. Neck: Supple, no lymphadenopathy. No JVD. Nontender. Cardiovascular: Tachycardic regular rhythm with a 2 out of 6 stock murmur Respiratory: Mild respiratory distress with tachypnea. Clear to auscultation bilaterally. Abdominal: Soft, nontender, nondistended, normal bowel sounds. No guarding, rebound, or peritoneal signs. Back: Nontender. Extremities: 1+ pitting edema to his lower extremities bilaterally. He does have mild calf tenderness bilaterally as well. Skin: Normal color, no rash. Neurologic: Alert and oriented ?3. Cranial nerves II through XII are intact. Normal strength and sensation. Psych: Normal affect. Test Results: EKG is sinus tach at [address] changes. There is no significant change since November 02, 2020. CBC shows a white count of 14.3 with 88 segmented neutrophils and 5 lymphocytes. H&H of 9.4 and 27.1, platelets of 82. Chem-7 shows a sodium 130, chloride 97, creatinine 1.5, glucose 220, calcium 8.2. Troponin is 0.028. BNP is 23.4. Lactic acid is 3.0. Clinical Impression(s) from Imaging Studies Chest CTA 11/05/20 16:04 IMPRESSION: No demonstrated PE, or thoracic aortic aneurysm or dissection Underlying emphysema with chronic interstitial changes and dependent atelectasis but no superimposed acute pulmonary process Calcified coronary vessels Degenerative bony changes Electronically Signed: Jordin Shields MD at 18:30 EST , Service support , Emergency Department Course and Treatment: Patient was given a liter of normal saline. I reviewed the urine culture from November 02 and it did grow Morganella that is resistant to Ancef. He had been discharged on Keflex. He was given a dose of Levaquin IV. He refused pain and nausea medications. He is resting comfortably. COVID-19 PCR was ordered as the patient had a negative rapid antigen 3 days ago. Treatment Plan: The patient will be discussed with the hospitalist and admitted for further evaluation and treatment. Disposition: Admitted in improved, but serious condition. Impression: 1. UTI. 2. Severe sepsis. 3. Chronic renal insufficiency. 4. Anemia. 5. Thrombocytopenia. This note was generated with [employer] software. It may contain incorrect words, spelling, and punctuation that were not noted in review of the chart prior to signing ED Disposition - Plan for ED Patient: Referrals: Franco Shin MD [Primary Care Provider] -
[2020-11-05 16:42] LABS: Hematocrit 27.1 % (40-54); Hemoglobin 9.4 g/dL (13.0-16.5); Mean Corp Hgb Conc 34.7 g/dL (32-36); Mean Corpuscular Hgb 32.6 pg (27.0-32.0); Mean Corpuscular Volume 94.1 fL (80-94); POSITIVE COUNT YES; POSITIVE DIFFERENTIAL YES; POSITIVE MORPHOLOGY YES; Platelet Count 82 K/mm3 (150-450); RBC Distribution Width CV 15.4 % (11.6-14.6); RBC Distribution Width SD 50.1 fl (35.1-43.9); Red Blood Count 2.88 M/mm3 (4.6-6.2); White Blood Count 14.3 K/mm3 (4.4-11.0)
[2020-11-05 16:45] LABS: Differential Indicated MANUAL DIFF
[2020-11-05 17:09] LABS: Anion Gap 7 (5-15); BUN 18 mg/dL (7-18); Calcium,Total 8.2 mg/dL (8.5-10.1); Chloride 97 mmol/L (98-107); EST Glomerular Filtration Rate 48 mL/min (>60); Est Glom Filt Rate - Afr Amer 58 mL/min (>60); Estimated Creatinine Clearance 43.23 ml/min; Glucose 220 mg/dL (74-106); Potassium 4.7 mmol/L (3.5-5.1); Sodium Level 130 mmol/L (136-145)
[2020-11-05 17:16] LABS: Lymphocyte 5 % (19-41); Monocyte 4 % (0-10); Neutrophil-Band 3 % (0-5); Neutrophil-Segmented 88 % (47-70); Nucleated Red Bld Cells,Manual 1 % (0-5); Total Cells Counted 100 (MANUAL DIFF)
[2020-11-05 17:17] LABS: Anisocytosis 1+; Platelet Estimate MOD DEC (ADEQ); Polychromasia 1+
[2020-11-05 17:29] LABS: BNP,B-Type NATRIURETIC PEPTIDE 23.4 pg/mL (0-100)
[2020-11-05 17:40] LABS: Absolute Lymphocyte Count 0.72 X10^3/uL (0.83-4.51)
[2020-11-05] MEDS: levoFLOXacin IV 750 MG/150 ML BAG 100 MG IV (18:34)
--- NOTE | 2020-11-05 19:19 | PCM.HP.STD ---
Problem List (1) Debility Status: Chronic (2) Bladder cancer Status: Chronic (3) Diabetes mellitus Status: Chronic (4) GERD (gastroesophageal reflux disease) Status: Chronic (5) Chronic kidney disease Status: Chronic (6) Sepsis Status: Acute (7) UTI (urinary tract infection) Status: Acute History of Present Illness Date of Admission: 11/05/20 Chief Complaint: shortness of breath and weakness The patient is a 80 year old patient with a significant past medical history of metastatic bladder cancer status post chemotherapy 2 weeks ago who presents to the emergency room with shortness of breath and weakness. The onset of his shortness of breath coincides with his immunotherapy treatment 2 weeks ago. The patient denies nausea vomiting and diarrhea. He also reports having a sawblade injury 2 weeks ago for which she required multiple sutures on his right wrist that is healed and does not appear infected at this time. The patient has a urostomy tube and colostomy in place. Currently states he is feeling better than when he first arrived after receiving IV fluids. CBC reveals a white blood cell count elevated 14.3 with a left shift, hemoglobin 9.4, hematocrit 27.1, platelets 82, sodium 130, potassium 4.7, chloride 97, bicarb 26, BUN 18, creatinine 1.5, calcium 8.2, glucose 220, troponin 0 0.028, BN P 23.4, Covid PCR negative, CTA chest negative for pulmonary embolism and negative for aortic dissection but positive for emphysematous changes. Recent urinary culture from the reveals resistance of Morganella species to first generation cephalosporin for which she had been placed on therefore for suspicion of current source of infection is urinary tract infection/sepsis. The organism was susceptible to fluoroquinolones and patient received a dose of Levaquin in the emergency room. Past Medical History Past Medical History (Chronic Problems): Chronic Problems Debility (Chronic) Bladder cancer (Chronic) Bile duct injury (Chronic) Diabetes mellitus (Chronic) Hypertension (Chronic) Gross hematuria (Chronic) GERD (gastroesophageal reflux disease) (Chronic) Chronic kidney disease (Chronic) Allergies No Known Allergies Allergy (Verified 11/05/20 15:45) Home Medications: Ambulatory Orders Medication Instructions Recorded Metoprolol Succinate [Toprol Xl] 25 mg PO DAILY 06/11/18 metFORMIN HCl [Glucophage] 500 mg PO BIDCM 06/11/18 Amlodipine [Norvasc] 10 mg PO DAILY 09/30/19 Cyanocobalamin (Vitamin B-12) 1,000 mcg PO DAILY 09/30/19 [Vitamin B-12] Rosuvastatin Calcium 5 mg PO DAILY 09/30/19 Polyethylene Glycol 3350 [Miralax] 17 gm PO DAILY 10/21/19 Docusate Sodium [Colace] 100 mg PO DAILY 11/12/19 Apixaban [Eliquis] 2.5 mg PO BID 11/05/20 Cephalexin [Keflex] 500 mg PO DAILY@0800,2000 11/05/20 Magnesium Oxide 400 mg PO DAILY 11/05/20 Omeprazole 40 mg PO DAILY 11/05/20 Surgical History: cataract, cholecystectomy - bile duct injury., - - TURBT x 3, Exploratory laparotomy, hepatojejunostomy with wound vac, liver resection, DCS: A-10C [place] Psychiatric History: No pertinent psych hx Smoking Status: Former smoker - *Family History Maternal History Items: Diabetes, Dementia Sibling History Items: COPD - Brother. Review of Systems Constitutional: Reports: Malaise, Weakness, Fatigue. Denies: Chills, Fever, Weight Change HEENT: Denies: Head Aches, Sinus Congestion, Sinus Drainage Cardiovascular: Denies: Chest Pain, Palpitations Respiratory: Reports: Shortness of breath at rest. Denies: Cough, Sputum production Gastrointestinal: Denies: Abdominal Pain, Nausea, Vomiting Genitourinary: Denies: Dysuria Musculoskeletal: Denies: Joint Pain, Joint Tenderness Skin: Denies: Rash, Wounds Neurological: Denies: Numbness, Tingling, Focal weakness Psychiatric: Reports: Anxiety. Denies: Depression, Homicidal Ideations, Suicidal Ideations Hematologic/ Lymphatic: Denies: Easy Bruising, Easy Bleeding VTE Information - Inpt Only VTE Present on Admission: No VTE Mechan Device Prophylaxis: SCD's VTE Pharm Prophylaxis ordered?: No - Physical Exam Vitals/I&O's: Vital Signs Temp Pulse Resp BP Pulse Ox 97.0 F L 98 22 H 107/50 L 96 11/05/20 15:46 11/05/20 18:16 11/05/20 18:16 11/05/20 18:16 11/05/20 18:16 Oxygen Delivery Method Room Air Weight: 170 lb Body Mass Index (BMI) 23.7 Intake and Output for Last 24 Hours 11/03/20 11/04/20 11/05/20 23:59 23:59 23:59 Intake Total 1000 / 999 Balance 1000 / 999 General: Alert, Oriented x3, Cooperative HEENT: Atraumatic, Normocephalic Neck: Supple Lungs: Normal air movement, No rhonchi, No wheeze, No rales Cardiovascular: Normal S1, Normal S2, No murmurs, Tachycardic Abdomen: Bowel Sounds Present, Soft, Non Tender, - - colostomy intact Extremities: No edema, Capillary Refill Less than 3 Seconds Skin: No rashes, - - wound healed right wrist (multiple interrupted sutures remain) Musculoskeletal: No Tenderness to Palpation of Joints or Extremities Neurological: Neuro grossly intact Psych/Mental Status: Normal Affect, Appropriate Laboratory Results 11/05/20 16:10: COVID-19 (JUSTYN) Not Detected 11/05/20 16:25: WBC 14.3 H, RBC 2.88 L, Hgb 9.4 L, Hct 27.1 L, MCV 94.1 H, MCH 32.6 H, MCHC 34.7, RDW Std Deviation 50.1 H, RDW Coeff of Concha 15.4 H, Plt Count 82 L, MPV 11.0, Neut % (Auto) Not Reportable, Absolute Neuts (auto) 13.0 H, Absolute Lymphs (auto) 0.72 L, Total Counted 100, Neutrophils % (Manual) 88 H, Band Neutrophils % 3, Lymphocytes % (Manual) 5 L, Monocytes % (Manual) 4, Nucleated RBCs/100 WBC 1, Diff Path Review February, Platelet Estimate MOD DEC, Polychromasia 1+, Anisocytosis 1+ 11/05/20 16:25: Sodium 130 L, Potassium 4.7, Chloride 97 L, Carbon Dioxide 26.0, Anion Gap 7, BUN 18, Creatinine 1.50 H, Estim Creat Clear Calc 43.23, Est GFR (MDRD) Af Amer 58 L, Est GFR (MDRD) Non-Af 48 L, BUN/Creatinine Ratio 12.0, Glucose 220 H, Calcium 8.2 L, Troponin I 0.028 11/05/20 16:25: Lactic Acid 3.0 H* 11/05/20 16:25: B-Natriuretic Peptide 23.4 Current Medications Sodium Chloride () 500 mls @ 999 mls/hr IV .Q31M ONE Last Infusion: 11/05/20 17:03 Dose: Infused Documented by: Assessment/Plan All Active Problems Sepsis (Acute) UTI (urinary tract infection) (Acute) SBO (small bowel obstruction) (Acute) KRISTIN (acute kidney injury) (Acute) Chronic Problems Debility (Chronic) Bladder cancer (Chronic) Bile duct injury (Chronic) Diabetes mellitus (Chronic) Hypertension (Chronic) Gross hematuria (Chronic) GERD (gastroesophageal reflux disease) (Chronic) Chronic kidney disease (Chronic) Plan 1. Urinary tract infection/sepsis?admit patient to progressive care unit?continue IV hydration per sepsis protocol, continue Levaquin IV 750 mg daily. Repeat CBC, BMP in a.m. and lactic acid per routine protocol. 2. Diabetes?continue home medications 3. Hypertension?we will hold antihypertensives this evening while patient has a lower blood pressure than normal 4. GERD?continue PPI 5. DVT prophylaxis?low molecular weight heparin will not be used due to thrombocytopenia therefore SCDs will be chosen 6. Sutures remaining on right arm?okay to remove sutures OBSV E&M: 05143 Initial observation care L2
[2020-11-05 20:34] LABS: Reflex Lactate? Y
[2020-11-05 21:37] LABS: Lactic Acid 1.7 mmol/L (0.4-1.9)
[2020-11-05] MEDS: Lactated Ringers 1,000 ML 125 ML IV (21:53)
[2020-11-05] MEDS: Glucerna Shake 120 ML LIQUID PO (21:54)
[2020-11-05 23:05] LABS: Bedside Glucose 206 mg/dL (70-110)
[2020-11-06] VITALS (10 sets, daily range): BP systolic 114–127; BP diastolic 60–65; PULSE 83–114; RESP 18–19; TEMP 36.8–37.8; O2SAT 95–99
--- NOTE | 2020-11-06 01:47 | PCS.PANDOC ---
PANDEMIC DOCUMENTATION INITIATED: Date: 11/05/20 Time: 2100
[2020-11-06] MEDS: Lactated Ringers 1,000 ML 125 ML IV ×3 (05:54→21:48)
[2020-11-06 06:05] LABS: Hematocrit 24.9 % (40-54); Hemoglobin 8.1 g/dL (13.0-16.5); Mean Corp Hgb Conc 32.5 g/dL (32-36); Mean Corpuscular Hgb 30.1 pg (27.0-32.0); Mean Corpuscular Volume 92.6 fL (80-94); Mean Platelet Vol. 10.1 fl (6.2-12.0); POSITIVE COUNT YES; POSITIVE DIFFERENTIAL YES; POSITIVE MORPHOLOGY YES; Platelet Count 74 K/mm3 (150-450); RBC Distribution Width CV 14.9 % (11.6-14.6); RBC Distribution Width SD 50.2 fl (35.1-43.9); Red Blood Count 2.69 M/mm3 (4.6-6.2); White Blood Count 11.5 K/mm3 (4.4-11.0)
[2020-11-06 06:08] LABS: Differential Indicated MANUAL DIFF
[2020-11-06 06:27] LABS: Total Cells Counted 100 (MANUAL DIFF)
[2020-11-06 06:30] LABS: Anion Gap 9 (5-15); BUN 15 mg/dL (7-18); BUN/Creat Ratio 12.1 RATIO (10-20); Calcium,Total 7.8 mg/dL (8.5-10.1); Chloride 101 mmol/L (98-107); Creatinine, Serum 1.24 mg/dL (0.70-1.30); EST Glomerular Filtration Rate 60 mL/min (>60); Est Glom Filt Rate - Afr Amer 73 mL/min (>60); Glucose 124 mg/dL (74-106); Potassium 4.4 mmol/L (3.5-5.1); Sodium Level 134 mmol/L (136-145)
[2020-11-06 06:31] LABS: Metamyelocyte 2 % (0-1); Myelocyte 3 (0-0); Neutrophil-Band 4 % (0-5); Neutrophil-Segmented 84 % (47-70)
[2020-11-06 06:32] LABS: Lymphocyte 4 % (19-41); Monocyte 3 % (0-10)
[2020-11-06 06:33] LABS: Toxic Granulation RARE
[2020-11-06 06:34] LABS: Platelet Estimate MOD DEC (ADEQ)
[2020-11-06 06:35] LABS: Absolute Neutrophil Count 10.1 X10^3/uL (2.0-7.7); Hypochromasia RARE; Neutrophil # 10.07 X10^3/uL (2.7-7.7); Polychromasia RARE
[2020-11-06 06:36] LABS: Absolute Lymphocyte Count 0.46 X10^3/uL (0.83-4.51); Lymphocyte # 0.46 X10^3/ul (4.0)
[2020-11-06] MEDS: Polyethylene Glycol 3350 17 GM PACKET PO (09:36)
[2020-11-06] MEDS: Metoprolol(XL)Succ 25 MG Tablet PO (09:36)
[2020-11-06] MEDS: metFORMIN HCl 500 MG Tablet PO ×2 (09:36→17:34)
[2020-11-06] MEDS: Cyanocobalamin 500 MCG Tablet 1000 MCG PO (09:36)
[2020-11-06] MEDS: Pantoprazole Sodium 40 MG Tablet PO (09:36)
[2020-11-06] MEDS: Glucerna Shake 120 ML LIQUID PO ×4 (09:44→21:45)
[2020-11-06 13:28] LABS: Pathologist Review Reviewed
[2020-11-06 13:29] LABS: Pathologist Review Reviewed
--- NOTE | 2020-11-06 15:47 | PCM.PN.HOSP ---
Patient Problems: Active and Suspected Problems Sepsis (Acute) UTI (urinary tract infection) (Acute) Subjective: Feels well. Denies any new complaints. Vitals/I&O's: Vital Signs Temp Pulse Resp BP Pulse Ox 37.0 C 103 H 19 H 125/65 H 97 11/06/20 09:34 11/06/20 09:36 11/06/20 09:34 11/06/20 09:34 11/06/20 09:34 Oxygen Flow Rate (L/min) 2 Oxygen Delivery Method Nasal Cannula Weight: 74.3 kg Body Mass Index (BMI) 22.8 Intake and Output for Last 24 Hours 11/04/20 11/05/20 11/06/20 23:59 23:59 23:59 Intake Total 1487.5 / 1487.5 1737.5 / 1737.5 Output Total 450 / 450 1100 / 1100 Balance 1037.5 / 1037.5 637.5 / 637.5 General: Alert, No apparent distress HEENT: Atraumatic, Normocephalic Oral: Moist Mucosa, No Gingival or Mucosal Lesions/ Ulcerations Neck: No Nodes, Thyroid Normal Size and Texture Lungs: Clear to auscultation, Normal air movement, No rhonchi, No wheeze, No rales Cardiovascular: Regular rate, Regular Rhythm, Normal S1, Normal S2, No murmurs Abdomen: Bowel Sounds Present, Soft, Non Tender, Non-Distended, No Hepato-splenomegaly, - - Urostomy and colostomy in place Extremities: No edema, No Calf Tenderness Psych/Mental Status: Normal Affect, Appropriate Laboratory Results 11/05/20 16:10: COVID-19 (JUSTYN) Not Detected 11/05/20 16:25: WBC 14.3 H, RBC 2.88 L, Hgb 9.4 L, Hct 27.1 L, MCV 94.1 H, MCH 32.6 H, MCHC 34.7, RDW Std Deviation 50.1 H, RDW Coeff of Concha 15.4 H, Plt Count 82 L, MPV 11.0, Neut % (Auto) Not Reportable, Absolute Neuts (auto) 13.0 H, Absolute Lymphs (auto) 0.72 L, Total Counted 100, Neutrophils % (Manual) 88 H, Band Neutrophils % 3, Lymphocytes % (Manual) 5 L, Monocytes % (Manual) 4, Nucleated RBCs/100 WBC 1, Diff Path Review Reviewed, Platelet Estimate MOD DEC, Polychromasia 1+, Anisocytosis 1+ 11/05/20 16:25: Sodium 130 L, Potassium 4.7, Chloride 97 L, Carbon Dioxide 26.0, Anion Gap 7, BUN 18, Creatinine 1.50 H, Estim Creat Clear Calc 43.23, Est GFR (MDRD) Af Amer 58 L, Est GFR (MDRD) Non-Af 48 L, BUN/Creatinine Ratio 12.0, Glucose 220 H, Calcium 8.2 L, Troponin I 0.028 11/05/20 16:25: Lactic Acid 3.0 H* 11/05/20 16:25: B-Natriuretic Peptide 23.4 11/05/20 21:00: Lactic Acid 1.7 11/05/20 23:00: POC Glucose 206 H 11/06/20 05:30: WBC 11.5 H, RBC 2.69 L, Hgb 8.1 L, Hct 24.9 L, MCV 92.6, MCH 30.1, MCHC 32.5 D, RDW Std Deviation 50.2 H, RDW Coeff of Concha 14.9 H, Plt Count 74 L, MPV 10.1, Neut % (Auto) Not Reportable, Absolute Neuts (auto) 10.1 H, Absolute Lymphs (auto) 0.46 L, Total Counted 100, Neutrophils % (Manual) 84 H, Band Neutrophils % 4, Lymphocytes % (Manual) 4 L, Monocytes % (Manual) 3, Metamyelocytes % 2 H, Myelocytes % 3 H, Diff Path Review Reviewed, Toxic Granulation RARE, Platelet Estimate MOD DEC, Polychromasia RARE, Hypochromasia RARE 11/06/20 05:30: Sodium 134 L, Potassium 4.4, Chloride 101, Carbon Dioxide 24.0, Anion Gap 9, BUN 15, Creatinine 1.24, Estim Creat Clear Calc 51.60, Est GFR (MDRD) Af Amer 73, Est GFR (MDRD) Non-Af 60, BUN/Creatinine Ratio 12.1, Glucose 124 H, Calcium 7.8 L Current Medications Apixaban (Apixaban 2.5 Mg Tablet) 2.5 mg PO BID [facility] Last Admin: 11/06/20 09:44 Dose: Not Given Documented by: Atorvastatin Calcium (Atorvastatin Calcium 10 Mg Tablet) 10 mg PO QHS [facility]END[facility] S[facility] TO [facility] Last Admin: 11/05/20 21:56 Dose: Not Given Documented by: Cyanocobalamin (Cyanocobalamin 500 Mcg Tablet) 1,000 mcg PO DAILY [facility] Last Admin: 11/06/20 09:36 Dose: 1,000 mcg Documented by: Docusate Sodium (Docusate Sodium 100 Mg Capsule) 100 mg PO DAILY [facility] Last Admin: 11/06/20 09:44 Dose: Not Given Documented by: Sodium Chloride () 500 mls @ 999 mls/hr IV .Q31M ONE Last Infusion: 11/05/20 17:03 Dose: Infused Documented by: Lactated Ringer's () 1,000 mls @ 125 mls/hr IV .Q8H [facility] Last Admin: 11/06/20 13:59 Dose: 125 mls/hr Documented by: Levofloxacin (Levaquin Iv) 750 mg in 150 mls @ 100 mls/hr IV Q48 [facility] Metformin HCl (Metformin Hcl 500 Mg Tablet) 500 mg PO BIDCM [facility] Last Admin: 11/06/20 09:36 Dose: 500 mg Documented by: Metoprolol Succinate (Metoprolol(Xl)Succ 25 Mg Tablet) 25 mg PO DAILY [facility] Last Admin: 11/06/20 09:36 Dose: 25 mg Documented by: Nutritional Formula (Lactose Free) (Glucerna Shake 120 Ml Liquid) 120 ml PO 4X/DAY [facility] Last Admin: 11/06/20 14:00 Dose: 120 ml Documented by: Ondansetron HCl (Ondansetron 4 Mg/2 Ml Vial) 4 mg IV Q8H PRN PRN PRN Reason: NAUSEA/VOMITING Pantoprazole Sodium (Pantoprazole Sodium 40 Mg Tablet) 40 mg PO DAILY [facility] Last Admin: 11/06/20 09:36 Dose: 40 mg Documented by: Polyethylene Glycol (Polyethylene Glycol 3350 17 Gm Packet) 17 gm PO DAILY [facility] Last Admin: 11/06/20 09:36 Dose: 17 gm Documented by: Sodium Chloride (0.9% Saline Lock 10 Ml Syringe) 10 - 40 ml IV UD PRN PRN Reason: SALINE FLUSH Medical Necessity - Tobacco Use Smoking Status: Former smoker Assessment/Plan All Active Problems Sepsis (Acute) UTI (urinary tract infection) (Acute) SBO (small bowel obstruction) (Acute) KRISTIN (acute kidney injury) (Acute) 1. Severe sepsis: Present on arrival. Improved secondary to UTI. Blood cultures drawn on admission and thus far negative. Patient did have lactic acidosis upon arrival though some of this may be contributed by the patient's use of Metformin. That has since resolved so okay to continue with Metformin for now. COVID-19 negative 2. Morganella morganii UTI: Currently on levofloxacin. Continue with that upon discharge complete a 7-day course of antibiotics. Given the patient's severe sepsis, would monitor the patient another night to ensure stability. 3. Diabetes mellitus type 2: On Metformin. Continue to monitor. No changes at this time. 4. Thrombocytopenia: Stable. Monitor. Inpatient E&M: 72595 Subs Hosp L2
--- NOTE | 2020-11-06 21:11 | VDLE_ITS ---
Reason For Study: Pain Procedure LEFT Exam performed portable in patient room. GSV is normal. A preliminary report was called and/or faxed CFV is compressible, spontaneous, phasic, to Patients RN. competent, and demonstrates normal augmentation. FV is compressible, spontaneous, phasic, competent and demonstrates normal augmentation. POP V is compressible, spontaneous, phasic, competent and demonstrates normal augmentation. T/P Trunk is compressible. PTV is compressible. LT PerV is compressible. Interpretation Summary Deep veins of the left lower extremity are patent and compressible segmentally. There is no evidence of left lower extremity deep vein thrombosis. Valvular competence appears intact within the proximal deep venous system on the left . The left great saphenous vein appears patent and compressible segmentally. Ordering Physician: Sulaiman Reaves Referring Physician: Franco Shin Performed By: Amara Hernandez, MARLEN, RVT
[2020-11-06] MEDS: Atorvastatin Calcium 10 MG Tablet PO (21:45)
[2020-11-06] MEDS: Acetaminophen 325 MG Tablet 650 MG PO (21:45)
[2020-11-06] MEDS: Ondansetron 4 MG/2 ML Vial IV (21:48)
[2020-11-06 22:45] LABS: D-Dimer Quantitative (DVT/PE) 3.66 FEU/ug/m (0.27-0.49)
[2020-11-07] VITALS (8 sets, daily range): BP systolic 105–115; BP diastolic 59–66; PULSE 96–111; RESP 18–20; TEMP 36.9–37.3; O2SAT 87–98
[2020-11-07] MEDS: Lactated Ringers 1,000 ML 125 ML IV (06:02)
--- NOTE | 2020-11-07 09:35 | DCINST_ITS ---
- Discharge Diagnoses Current Active Problems: Current Active and Chronic Problems Debility (Chronic) Bladder cancer (Chronic) Diabetes mellitus (Chronic) GERD (gastroesophageal reflux disease) (Chronic) Chronic kidney disease (Chronic) Sepsis (Acute) UTI (urinary tract infection) (Acute) You will use the following diet at home:: Calorie/Carbohydrate Controlled (specify 1200, 1400, etc) Your food should be the consistency of: Regular Call your doctor if you observe: Fever of 101 or Higher Allergies/Adverse Reactions: Allergies No Known Allergies Allergy (Verified 11/05/20 15:45) Medications to take at Discharge Metoprolol Succinate [Toprol Xl] 25 mg PO DAILY 06/11/18 metFORMIN HCl [Glucophage] 500 mg PO BIDCM 06/11/18 Cyanocobalamin (Vitamin B-12) [Vitamin B-12] 1,000 mcg PO DAILY 09/30/19 Rosuvastatin Calcium 5 mg PO DAILY 09/30/19 Polyethylene Glycol 3350 [Miralax] 17 gm PO DAILY 10/21/19 Docusate Sodium [Colace] 100 mg PO DAILY 11/12/19 Apixaban [Eliquis] 2.5 mg PO BID 11/05/20 Magnesium Oxide 400 mg PO DAILY 11/05/20 Omeprazole 40 mg PO DAILY 11/05/20 Levofloxacin 500 mg PO DAILY #5 tab 11/07/20 The following prescriptions were given: Levofloxacin 500 mg PO DAILY #5 tab Transmission Status: Pending to [facility] Primary Care Physician: Franco Shin MD [Primary Care Provider] - Within 2 Weeks Test Results: Test results from this visit will be discussed in further detail at your follow- up appointment, if applicable. Please Follow Up With: Seda Lopez When: 02/06/2021, already scheduled Proposed Discharge Date: 11/07/20
--- NOTE | 2020-11-07 09:37 | DS.PCM_ITS ---
Discharge Date and Diagnosis - Problem List Patient Problems: Active and Suspected Problems Sepsis (Acute) UTI (urinary tract infection) (Acute) Date of Admission: 11/05/20 Date of Discharge: 11/07/20 - Primary Discharge Diagnosis Acute Problems: Active Problems Sepsis (Acute) UTI (urinary tract infection) (Acute) - Secondary Discharge Diagnosis Chronic Problems: Chronic Problems Debility (Chronic) Bladder cancer (Chronic) Bile duct injury (Chronic) Diabetes mellitus (Chronic) Hypertension (Chronic) Gross hematuria (Chronic) GERD (gastroesophageal reflux disease) (Chronic) Chronic kidney disease (Chronic) Hospital Course and Treatment Imaging Results: Clinical Impression(s) from Imaging Studies Chest CTA 11/05/20 16:04 IMPRESSION: No demonstrated PE, or thoracic aortic aneurysm or dissection Underlying emphysema with chronic interstitial changes and dependent atelectasis but no superimposed acute pulmonary process Calcified coronary vessels Degenerative bony changes Electronically Signed: Jordin Shields MD at 18:30 EST , Service support , Operations: None Procedures: None Summary of Care Provided: The patient is a 80 year old M with shortness of breath. Essentially patient was in severe sepsis. Patient had presented diagnosed with a UTI but was treated with cephalexin. Culture bench came back showing Morganella morganii which was resistant to it. Patient was changed over to levofloxacin which she is tolerated. Patient has remained stable during the course of this hospitalization. The patient's shortness of breath, patient did undergo a CT angiogram of the chest that showed no PE, no aneurysm or dissection. Did show underlying emphysema with chronic interstitial changes but no acute pulmonary process. Patient also sustained a laceration to his right hand approximately 2 weeks ago after using a table saw. Patient had sutured by surgeon at outpatient facility. Patient was due to have that removed days ago. I evaluated that and so that is well approximated with extensive scabbing. Sutures were removed by myself and patient tolerated procedure well. Patient did have some minor bleeding. [] Patient Problems: Active and Suspected Problems Sepsis (Acute) UTI (urinary tract infection) (Acute) - Physical Exam Vitals/I&O's: Vital Signs Temp Pulse Resp BP Pulse Ox 37.3 C 107 H 18 111/62 98 11/07/20 05:39 11/07/20 07:00 11/07/20 05:39 11/07/20 05:39 11/07/20 06:57 Oxygen Flow Rate (L/min) 2 Oxygen Delivery Method Nasal Cannula Weight: 74.3 kg Body Mass Index (BMI) 22.8 Intake and Output for Last 24 Hours 11/05/20 11/06/20 11/07/20 23:59 23:59 23:59 Intake Total 1487.5 / 1487.5 3654.58 / 3654.58 1240 / 1240 Output Total 450 / 450 3300 / 3300 1350 / 1350 Balance 1037.5 / 1037.5 354.58 / 354.58 -110 / -110 General: Alert, No apparent distress HEENT: Atraumatic, Normocephalic Extremities: No edema, No Calf Tenderness Skin: - - Incision on her side of the right hand and wrist showed that the laceration was well approximated with extensive scabbing overlying the sutures. Laboratory Results 11/05/20 16:25: Diff Path Review Reviewed 11/06/20 05:30: Diff Path Review Reviewed 11/06/20 21:30: D-Dimer Quant (PE/DVT) 3.66 H* Current Medications Acetaminophen (Acetaminophen 325 Mg Tablet) 650 mg PO Q6H PRN PRN PRN Reason: Pain 1-10 or Fever Last Admin: 11/06/20 21:45 Dose: 650 mg Documented by: Apixaban (Apixaban 2.5 Mg Tablet) 2.5 mg PO BID [facility] Last Admin: 11/06/20 21:47 Dose: Not Given Documented by: Atorvastatin Calcium (Atorvastatin Calcium 10 Mg Tablet) 10 mg PO QHS [facility] Last Admin: 11/06/20 21:45 Dose: 10 mg Documented by: Cyanocobalamin (Cyanocobalamin 500 Mcg Tablet) 1,000 mcg PO DAILY [facility] Last Admin: 11/06/20 09:36 Dose: 1,000 mcg Documented by: Docusate Sodium (Docusate Sodium 100 Mg Capsule) 100 mg PO DAILY [facility] Last Admin: 11/06/20 09:44 Dose: Not Given Documented by: Sodium Chloride () 500 mls @ 999 mls/hr IV .Q31M ONE Last Infusion: 11/05/20 17:03 Dose: Infused Documented by: Lactated Ringer's () 1,000 mls @ 125 mls/hr IV .Q8H [facility] Last Admin: 11/07/20 06:02 Dose: 125 mls/hr Documented by: Levofloxacin (Levaquin Iv) 750 mg in 150 mls @ 100 mls/hr IV Q48 [facility] Metformin [facility] ([facility] 500 Mg [facility] Last Admin: 11/06/20 17:34 Dose: 500 mg Documented by: Metoprolol Succinate (Metoprolol(Xl)Succ 25 Mg Tablet) 25 mg PO DAILY [facility] Last Admin: 11/06/20 09:36 Dose: 25 mg Documented by: Nutritional Formula (Lactose Free) (Glucerna Shake 120 Ml Liquid) 120 ml PO 4X/DAY [facility] Last Admin: 11/06/20 21:45 Dose: 120 ml Documented by: Ondansetron HCl (Ondansetron 4 Mg/2 Ml Vial) 4 mg IV Q8H PRN PRN PRN Reason: NAUSEA/VOMITING Last Admin: 11/06/20 21:48 Dose: 4 mg Documented by: Pantoprazole Sodium (Pantoprazole Sodium 40 Mg Tablet) 40 mg PO DAILY [facility] Last Admin: 11/06/20 09:36 Dose: 40 mg Documented by: Polyethylene Glycol (Polyethylene Glycol 3350 17 Gm Packet) 17 gm PO DAILY [facility] Last Admin: 11/06/20 09:36 Dose: 17 gm Documented by: Sodium Chloride (0.9% Saline Lock 10 Ml Syringe) 10 - 40 ml IV UD PRN PRN Reason: SALINE FLUSH Discharge Diet: 1800 Calorie Control Diet Call your doctor if you observe: Fever of 101 or Higher Home Medications: Medications to take at Discharge Metoprolol Succinate [Toprol Xl] 25 mg PO DAILY 06/11/18 metFORMIN HCl [Glucophage] 500 mg PO BID 06/11/18 Cyanocobalamin (Vitamin B-12) [Vitamin B-12] 1,000 mcg PO DAILY 09/30/19 Rosuvastatin Calcium 5 mg PO DAILY 09/30/19 Polyethylene Glycol 3350 [Miralax] 17 gm PO DAILY 10/21/19 Docusate Sodium [Colace] 100 mg PO DAILY 11/12/19 Apixaban [Eliquis] 2.5 mg PO BID 11/05/20 Magnesium Oxide 400 mg PO DAILY 11/05/20 Omeprazole 40 mg PO DAILY 11/05/20 Levofloxacin 500 mg PO DAILY #5 tab 11/07/20 Following Prescriptions Were Given to Patient: Levofloxacin 500 mg PO DAILY #5 tab Transmission Status: Pending to [facility] Primary Care Physician: Franco Shin MD [Primary Care Provider] - Within 2 Weeks Please Follow Up With: Seda Lopez When: 02/06/2021, already scheduled Disposition: Home Minutes spent on discharge:: 32 Patient Condition:: Fair Medical Necessity - Tobacco Use Smoking Status: Former smoker Meaningful Use Info Meaningful Use Diagnoses (Choose all that apply): None applicable Inpatient E&M: 50241 Disch Hosp
--- NOTE | 2020-11-07 10:02 | CASEMGMT ---
SW met w/pt in room in regard to prior level of function and discharge plan. Pt is discharged home today. PCP: Dr. Shin Specialists: Dr. Sr Insurance: Medicare A&B Prescription Coverage: None, pt pays out of pocket and has always been able to afford meds, states paid for a med at one point that was $2,000/week Preferred Pharmacy: [facility] Retail for this stay(SW explained can bead picker meds on way out), or [facility]: , 5 children, most live within 30 miles LW/POA: Pt states is POA, forms not on file here Living arrangements/prior level of function: Pt lives home in a one story house with three steps to enter, lives with . Pt independent with all ADLs, drives short distances or will drive. Pt reports to feel safe at home. Reports no concerns in regard to smoking or ETOH. SNF/HHC/DME: Pt has been to TCU, has not had home health, uses no DME, not on home O2. Pt is on O2 at present. SW spoke w/pt about anticipated discharge plan, pt anticipates returning home today w/, will pick him up. SW explained to stop at retail pharmacy on way out to get medication, pt states understanding. Pt declined home health referral. SW spoke w/pt about palliative care, pt is open to referral to palliative. SW also explained he will be tested to see if home oxygen is needed and if it is, we will speak w/him and get it ordered for pt. Pt states understanding. No other homegoing needs are anticipated. SW called Palliative care, spoke w/Ryann, referral faxed. They will follow up w/pt at home. Plan: Home, palliative referral, and possible home O2 if pt qualifies. HONORIO Pineda
[2020-11-07] MEDS: Cyanocobalamin 500 MCG Tablet 1000 MCG PO (10:23)
[2020-11-07] MEDS: Pantoprazole Sodium 40 MG Tablet PO (10:23)
[2020-11-07] MEDS: Metoprolol(XL)Succ 25 MG Tablet PO (10:23)
[2020-11-07] MEDS: metFORMIN HCl 500 MG Tablet PO (10:23)
--- NOTE | 2020-11-07 10:39 | CASEMGMT ---
Addendum entered by Sangita Charles 11/07/20 11:24: Call to [facility] to notify of referral and discharge for today, Lulu voices understanding. Rodriguez MEDINA CM Original Note: Pt does qualify for 2L home oxygen with exertion at this time. Pt provided list of local DME companies and states no preference for DME company at this time. Referral faxed to [facility] at this time. Pt denies need for any further resources at this time. CM to follow. Rodriguez MEDINA CM
[2020-11-07] MEDS: Acetaminophen 325 MG Tablet 650 MG PO (10:42)
[2020-11-07] MEDS: levoFLOXacin IV 750 MG/150 ML BAG 100 MG IV (10:43)
--- NOTE | 2020-11-07 10:55 | PHA.DC.MC ---
Pharmacy Service has performed discharge medication reconciliation and counseling for this patient. 1. LEVOFLOXACIN 500MG PO DAILY X 5 DAYS The patient's discharge medication list was reviewed for discrepancies and discrepancies were resolved. Home Medications Metoprolol Succinate [Toprol Xl] 25 mg PO DAILY 06/11/18 metFORMIN HCl [Glucophage] 500 mg PO BIDCM 06/11/18 Cyanocobalamin (Vitamin B-12) [Vitamin B-12] 1,000 mcg PO DAILY 09/30/19 Rosuvastatin Calcium 5 mg PO DAILY 09/30/19 Polyethylene Glycol 3350 [Miralax] 17 gm PO DAILY 10/21/19 Docusate Sodium [Colace] 100 mg PO DAILY 11/12/19 Apixaban [Eliquis] 2.5 mg PO BID 11/05/20 Magnesium Oxide 400 mg PO DAILY 11/05/20 Omeprazole 40 mg PO DAILY 11/05/20 Levofloxacin 500 mg PO DAILY #5 tab 11/07/20 The patient was counseled on the following discharge medications and changes in medications for homegoing were reviewed. The Reason for Use, instructions for use, and potential side effects were reviewed for all new medications. The patient's questions regarding all of their medications were answered. The patient was able to verbally demonstrate an understanding of their discharge medications. Patient counseled by pharmacy technician assistant, Atiya.
== END 2020-11-07 15:42 | disposition home or self-care (01) | DRG 872 ==
LOC: ED 16:09 → PCU 20:15
PROVIDERS: Hospitalist; Admitting Provider Family Medicine; Emergency Provider Emergency Medicine; PCP Family Medicine
DX: A41.9 Sepsis, unspecified organism (principal); N39.0 Urinary tract infection, site not specified; C79.9 Secondary malignant neoplasm of unspecified site; E11.22 Type 2 diabetes mellitus with diabetic chronic kidney disease; N18.9 Chronic kidney disease, unspecified; K21.9 Gastro-esophageal reflux disease without esophagitis; I12.9 Hypertensive chronic kidney disease with stage 1 through stage 4 chronic kidney disease, or unspecified chronic kidney disease; R65.20 Severe sepsis without septic shock; Z86.718 Personal history of other venous thrombosis and embolism; C67.9 Malignant neoplasm of bladder, unspecified; D69.59 Other secondary thrombocytopenia; T45.1X5A Adverse effect of antineoplastic and immunosuppressive drugs, initial encounter; D64.9 Anemia, unspecified; Z93.3 Colostomy status; Z93.6 Other artificial openings of urinary tract status; Z87.891 Personal history of nicotine dependence; B96.89 Other specified bacterial agents as the cause of diseases classified elsewhere; S61.411D Laceration without foreign body of right hand, subsequent encounter; W29.8XXD Contact with other powered hand tools and household machinery, subsequent encounter
CPT/HCPCS: 36415; 71275; 80048; 82962; 83605; 83880; 84484; 85025; 85379; 87040; 87635; 93005; 93971; 97802; 99285; J7040; J7050; J7120; Q9967; A4216; J2405; U0002

== ENCOUNTER 2020-11-18 20:07 | Emergency (ER) | payer MEDICARE, SELFPAY ==
[2020-11-05 19:52] VITALS: BMI 22.8
[2020-11-18 20:09] VITALS: BP 132/63; PULSE 105; RESP 18; TEMP 36.8; O2SAT 97; BMI 22.6
--- NOTE | 2020-11-18 20:30 | CT_ITS ---
STUDY: CT ABDOMEN AND PELVIS WITH CONTRAST REASON FOR EXAM: Male, 80 years old. NO OUTPUT FROM COLOSTOMY SINCE YESTERDAY, SEVERE PAIN, HX BLADDER CA WITH METS AND CURRENT CHEMO, CKD, UROSTOMY TUBE, DIAB, BILE DUCT INJURY IN THE PAST, HEPATOJEJUNOSTOMY, LIVER RESECTION RADIATION DOSAGE (If Supplied By Facility): CTDIvol = ( 15.24 ) mGy, DLP = ( 753.79 ) mGycm TECHNIQUE: Transaxial images were obtained from the dome of the diaphragm to the symphysis pubis without oral contrast. Oral and amp; IV Gastrografin and amp; 100mL Isovue-370 was administered. Sagittal and coronal images were reconstructed. Individualized dose optimization techniques were used for this CT. COMPARISON: 09/11/2020. FINDINGS: Limited views through the lower chest show atelectasis or scarring in both posterior lung bases. Intrabiliary air again seen throughout the liver. Status post cholecystectomy. Atrophy of the pancreas. Grossly negative spleen. Absent right kidney. Fluid in MORISON''s pouch. Abnormal soft tissue densities in the area of the right renal bed, also present previously and most consistent with metastatic disease. Left kidney within normal limits. Evaluation of the GI tract limited by absence of oral contrast. Grossly normal stomach. Numerous distended loops of bowel throughout the abdomen most consistent with small bowel obstruction. Small bowel loops measure as much as 4.5 cm. Several loops of abnormal small bowel in the pelvis showing more normal caliber but markedly thickened wall. Findings could represent enteritis with functional obstruction, or neoplastic disease metastatic to small bowel shaikh. Question whether there has been complete colectomy-correlate with surgical history. Heavily calcified aorta without aneurysm. Axial bladder. Grossly patent right lower quadrant and left lower quadrant ostomy. There are diffuse degenerative changes of the visualized lumbar spine. CT/Abdomen/Pelvis WITH Contrast IMPRESSION: Findings consistent with small bowel obstruction, with numerous loops of abnormal small bowel in the pelvis showing normal caliber but markedly thickened wall. 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 Electronically Signed: Anibal Razo MD at 23:15 EST , Service support ,
--- NOTE | 2020-11-18 20:33 | ED.VIS.GEN ---
History of Present Illness Chief Complaint: Constipation Informant: Patient, Family Onset: Yesterday Current Severity: Moderate Maximum Severity: Moderate Narrative: Patient presents secondary to abdominal pain and decreased ostomy output. He has a history of colostomy as well as urostomy secondary to bladder cancer. Patient states he noted some mild abdominal pain last night that worsened today. He had a small amount of liquid output from his colostomy this morning but really nothing out since that time. He has some mild nausea but no vomiting. He denies fever or chills. Patient was recently admitted for sepsis and UTI. - Past Medical History (1) Bladder cancer Status: Chronic (2) Chronic kidney disease Status: Chronic (3) Diabetes mellitus Status: Chronic (4) GERD (gastroesophageal reflux disease) Status: Chronic (5) Hypertension Status: Chronic Past Medical History - Allergies and Home Meds Allergies/Adverse Reactions: Allergies No Known Allergies Allergy (Verified 11/18/20 20:08) Primary Care Physician: Franco Shin MD [Primary Care Provider] - Prior records reviewed: Yes Surgical History: cataract, cholecystectomy - bile duct injury., - - TURBT x 3, Exploratory laparotomy, hepatojejunostomy with wound vac, liver resection, DCS: A-10C [place] Smoking Status: Former smoker - Family History Maternal Family History: Reports: Diabetes, Dementia Sibling Family History: Reports: COPD - Brother. Review of Systems General: Denies: Chills, Fever Eyes: Denies: Visual changes - bilaterally ENT: Denies: Bilateral ear pain Cardiovascular: Denies: Chest pain Respiratory: Denies: Dyspnea, Cough Gastrointestinal: Reports: Abdominal pain, Nausea, Constipation. Denies: Vomiting Musculoskeletal: Denies: Swelling, Extremity Pain Skin: Denies: Rash Neurological: Denies: Headache Hematologic: Denies: Easy bruising, Easy bleeding Allergy: Denies: Uticaria Physical Exam Vital Signs/Narrative: Vital Signs Temp Pulse Resp BP Pulse Ox 11/18/20 20:09 98.3 F 105 H 18 132/63 H 97 Inital Vital Signs reviewed: Yes General: Well nourished, Well developed Head: Normocephalic Neck: Supple Cardiovascular: Regular rate, Regular rhythm Respiratory: No distress, CTA bilaterally Abdomen: Soft, Tender - Mild diffuse tenderness to palpation., Hypoactive bowel sounds - Hypoactive bowel sounds overall with a few high-pitched bowel sounds noted.. Negative for: Guarding, Rebound tenderness Extremities: Nontender Skin: Normal color Neurological: Alert, Oriented x3 Psychological: Normal affect Diagnostic/Tx/Re-eval Impressions Abdomen/Pelvis CT 11/18/20 20:30 IMPRESSION: Findings consistent with small bowel obstruction, with numerous loops of abnormal small bowel in the pelvis showing normal caliber but markedly thickened wall. 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 Electronically Signed: Anibal Razo MD at 23:15 EST , Service support , 11/18/20 20:30 Abdomen/Pelvis WITH Contrast [CT] Stat Laboratory Results 11/18/20 11/18/20 11/18/20 21:15 21:15 21:20 WBC Cancelled Corrected WBC Cancelled RBC Cancelled Hgb Cancelled Hct Cancelled MCV Cancelled MCH Cancelled MCHC Cancelled RDW Std Deviation Cancelled RDW Coeff of Concha Cancelled Plt Count Cancelled MPV Cancelled Immature Gran % (Auto) Cancelled Neut % (Auto) Cancelled Lymph % (Auto) Cancelled Garrard % (Auto) Cancelled Eos % (Auto) Cancelled Baso % (Auto) Cancelled Absolute Neuts (auto) Cancelled Absolute Lymphs (auto) Cancelled Total Counted Cancelled Neutrophils % (Manual) Cancelled Band Neutrophils % Cancelled Lymphocytes % (Manual) Cancelled Monocytes % (Manual) Cancelled Eosinophils % (Manual) Cancelled Basophils % (Manual) Cancelled Metamyelocytes % Cancelled Myelocytes % Cancelled Promyelocytes % Cancelled Blast Cells % Cancelled Plasma Cell % (Manual) Cancelled Other Cells % Cancelled Nucleated RBC % Cancelled Nucleated RBCs/100 WBC Cancelled Differential Comment Cancelled Diff Path Review Cancelled Hypersegmented Neuts Cancelled Atypical Lymphocytes Cancelled Reactive Lymphocytes Cancelled Smudge Cells Cancelled Toxic Granulation Cancelled Toxic Vacuolation Cancelled Dohle Bodies Cancelled Adry Rods Cancelled Platelet Estimate Cancelled Plt Morphology Comment Cancelled RBC Morphology Cancelled Polychromasia Cancelled Hypochromasia Cancelled Poikilocytosis Cancelled Basophilic Stippling Cancelled Anisocytosis Cancelled Microcytosis Cancelled Macrocytosis Cancelled Spherocytes Cancelled Sickle Cells Cancelled Target Cells Cancelled Tear Drop Cells Cancelled Ovalocytes Cancelled Stomatocytes Cancelled Morgan-Healy Bodies Cancelled Becki Cells Cancelled Bite Cells Cancelled Crenated Cell Cancelled Acanthocytes (Spur) Cancelled Rouleaux Cancelled Schistocytes Cancelled Sodium 129 L Potassium 5.3 H Chloride 95 L Carbon Dioxide 28.0 Anion Gap 6 BUN 15 Creatinine 1.21 Estim Creat Clear Calc 52.29 Est GFR (MDRD) Af Amer 75 Est GFR (MDRD) Non-Af 62 BUN/Creatinine Ratio 12.4 Glucose 144 H Calcium 8.5 Total Bilirubin 0.60 Direct Bilirubin 0.12 AST 44 H ALT 34 Alkaline Phosphatase 91 Total Protein 6.7 Albumin 2.5 L Globulin 4.2 Lipase 76 Urine Color Yellow Urine Clarity Clear Urine pH 6.5 Ur Specific [place] 1.010 Urine Protein 100 H Urine Glucose (UA) Normal Urine Ketones Negative Urine Occult Blood 50 H Urine Nitrite Positive H Urine Bilirubin Negative Urine Urobilinogen Normal Ur Leukocyte Esterase 100 H Urine RBC 5-10 SEEN Urine WBC 10-25 SEEN Ur Squamous Epith Cells 0 SEEN Amorphous Sediment 1+ Urine Bacteria 2+ Urine Mucus 0 SEEN Urine Yeast RARE 11/18/20 11/18/20 21:30 22:55 WBC 6.4 Corrected WBC RBC 2.83 L Hgb 8.6 L Hct 25.8 L MCV 91.2 MCH 30.4 MCHC 33.3 RDW Std Deviation 45.5 H RDW Coeff of Concha 13.8 Plt Count 51 L MPV 10.0 Immature Gran % (Auto) 1.600 H Neut % (Auto) 78.5 H Lymph % (Auto) 10.2 L Garrard % (Auto) 8.0 Eos % (Auto) 1.4 Baso % (Auto) 0.3 Absolute Neuts (auto) 5.0 Absolute Lymphs (auto) 0.65 L Total Counted Neutrophils % (Manual) Band Neutrophils % Lymphocytes % (Manual) Monocytes % (Manual) Eosinophils % (Manual) Basophils % (Manual) Metamyelocytes % Myelocytes % Promyelocytes % Blast Cells % Plasma Cell % (Manual) Other Cells % Nucleated RBC % 0 Nucleated RBCs/100 WBC Differential Comment SCANNED Diff Path Review Hypersegmented Neuts Atypical Lymphocytes Reactive Lymphocytes Smudge Cells Toxic Granulation Toxic Vacuolation Dohle Bodies Adry Rods Platelet Estimate MOD DEC Plt Morphology Comment RBC Morphology Polychromasia Hypochromasia Poikilocytosis Basophilic Stippling Anisocytosis Microcytosis Macrocytosis Spherocytes Sickle Cells Target Cells Tear Drop Cells Ovalocytes Stomatocytes Morgan-Healy Bodies [place] Cells Bite Cells Crenated Cell Acanthocytes (Spur) Rouleaux Schistocytes Sodium Potassium Chloride Carbon Dioxide Anion Gap BUN Creatinine Estim Creat Clear Calc Est GFR (MDRD) Af Amer Est GFR (MDRD) Non-Af BUN/Creatinine Ratio Glucose Calcium Total Bilirubin Direct Bilirubin AST ALT Alkaline Phosphatase Total Protein Albumin Globulin Lipase Urine Color Yellow Urine Clarity Clear Urine pH 7.0 Ur Specific [place] 1.010 Urine Protein 30 H Urine Glucose (UA) Normal Urine Ketones Negative Urine Occult Blood 50 H Urine Nitrite Negative Urine Bilirubin Negative Urine Urobilinogen Normal Ur Leukocyte Esterase 100 H Urine RBC 5-10 SEEN Urine WBC 5-10 SEEN Ur Squamous Epith Cells 0 SEEN Amorphous Sediment Urine Bacteria RARE Urine Mucus 0 SEEN Urine Yeast - Medical Decision Making She was given morphine and Zofran for pain control. Blood work is reviewed. Patient is chronically anemic and hemoglobin today is 8.6. Sodium is slightly low at 129. Potassium is 5.3 but moderately hemolyzed. Initial urinalysis was obtained from his ileal conduit bag. Nursing staff states the bag was last changed yesterday. I asked him to place a new bag and collect a new sample. New sample does not appear to be overtly infected. CT scan was obtained. I did ask him to drink p.o. contrast he was able to drink approximately half of the bottle. CT is consistent with small bowel obstruction. On repeat examination patient is resting comfortably. He still does not have any output in his colostomy bag. In review of records patient has been transferred to [facility] whenever he has any GI complications from his prior surgeries. I have spoken with the transfer center at [facility] and plan will be transfer. ED Disposition - Plan for ED Patient: Disposition: [facility] Diagnosis: Small bowel obstruction Referrals: Franco Shin MD [Primary Care Provider] -
[2020-11-18] MEDS: Ondansetron 4 MG/2 ML Vial IV (21:12)
[2020-11-18] MEDS: Morphine 4 MG/ML Syringe IV ×2 (21:12→23:15)
[2020-11-18] MEDS: 0.9% Normal Saline 1,000 ML 150 ML IV (21:15)
[2020-11-18 21:36] LABS: Mucous, Urine 0 SEEN /hpf (<or=2+); Squamous Epithelial Cells - UA 0 SEEN /hpf (0-5)
[2020-11-18 21:37] LABS: Color, Urine Yellow (Yellow); Glucose, Dipstick Normal (Normal); Ketone-Dipstick Negative (Negative); Leukocyte Esterase-Dipstick 100 /ul (Negative); Nitrite-Dipstick Positive (Negative); Occult Blood-Urine 50 /ul (Negative); Protein-Dipstick 100 mg/dl (Negative); Urine Bilirubin Dipstick Negative (Negative); Urine Clarity Clear (Clear); Urine Urobilinogen Normal (Normal); Urine pH 6.5 (5.0 - 8.0)
[2020-11-18 21:41] LABS: Absolute Lymphocyte Count 0.65 X10^3/uL (0.83-4.51); Basophil# 0.02 X10^3/uL; Basophil% 0.3 % (0-1); Eosinophil# 0.09 X10^3/uL; Eosinophils% 1.4 % (0-5); Hematocrit 25.8 % (40-54); Hemoglobin 8.6 g/dL (13.0-16.5); Lymphocyte # 0.65 X10^3/ul (4.0); Lymphocyte % 10.2 % (19-41); Mean Corp Hgb Conc 33.3 g/dL (32-36); Mean Corpuscular Hgb 30.4 pg (27.0-32.0); Mean Corpuscular Volume 91.2 fL (80-94); Monocyte# 0.51 X10^3/uL; NRBC Flagged by Analyzer 0 % (0-5); Neutrophil # 4.99 X10^3/uL (2.7-7.7); Neutrophil % 78.5 % (47-70); POSITIVE COUNT YES; Platelet Count 51 K/mm3 (150-450); RBC Distribution Width CV 13.8 % (11.6-14.6); RBC Distribution Width SD 45.5 fl (35.1-43.9); Red Blood Count 2.83 M/mm3 (4.6-6.2); White Blood Count 6.4 K/mm3 (4.4-11.0)
[2020-11-18 21:42] LABS: AST(SGOT) 44 U/L (15-37); Alanine Aminotransfer ALT/SGPT 34 U/L (16-61); Albumin, Serum 2.5 g/dL (3.2-5.0); Alkaline Phosphatase 91 U/L (45-117); Anion Gap 6 (5-15); BUN 15 mg/dL (7-18); BUN/Creat Ratio 12.4 RATIO (10-20); Bilirubin, Direct 0.12 mg/dL (0.00-0.30); Calcium,Total 8.5 mg/dL (8.5-10.1); Chloride 95 mmol/L (98-107); Creatinine, Serum 1.21 mg/dL (0.70-1.30); EST Glomerular Filtration Rate 62 mL/min (>60); Est Glom Filt Rate - Afr Amer 75 mL/min (>60); Estimated Creatinine Clearance 52.29 ml/min; Globulin 4.2 g/dL (2.2-4.2); Glucose 144 mg/dL (74-106); Lipase 76 U/L (73-393); Potassium 5.3 mmol/L (3.5-5.1); Protein, Total 6.7 g/dL (6.4-8.2); Sodium Level 129 mmol/L (136-145)
[2020-11-18 21:43] LABS: Differential Indicated SCAN CRITERIA MET
[2020-11-18 21:51] LABS: White Blood Cells 10-25 SEEN /hpf (0-5)
[2020-11-18 21:52] LABS: Bacteria 2+ /hpf (None Seen); Red Blood Cells-Urine 5-10 SEEN /hpf (0-5)
[2020-11-18 21:54] LABS: Amorphous Sediment 1+; Yeast-Urine RARE /hpf (None Seen)
[2020-11-18 21:56] LABS: Differential Comment SCANNED; Platelet Estimate MOD DEC (ADEQ)
[2020-11-18 23:02] LABS: Mucous, Urine 0 SEEN /hpf (<or=2+); Squamous Epithelial Cells - UA 0 SEEN /hpf (0-5)
[2020-11-18 23:06] LABS: Color, Urine Yellow (Yellow); Glucose, Dipstick Normal (Normal); Ketone-Dipstick Negative (Negative); Leukocyte Esterase-Dipstick 100 /ul (Negative); Nitrite-Dipstick Negative (Negative); Occult Blood-Urine 50 /ul (Negative); Protein-Dipstick 30 mg/dl (Negative); Urine Bilirubin Dipstick Negative (Negative); Urine Clarity Clear (Clear); Urine Urobilinogen Normal (Normal)
[2020-11-18 23:16] VITALS: BP 117/69; PULSE 90; RESP 25; O2SAT 93
[2020-11-18 23:16] LABS: White Blood Cells 5-10 SEEN /hpf (0-5)
[2020-11-18 23:17] LABS: Red Blood Cells-Urine 5-10 SEEN /hpf (0-5)
[2020-11-18 23:18] LABS: Bacteria RARE /hpf (None Seen)
[2020-11-19 00:48] VITALS: BP 124/73; PULSE 92; RESP 24; TEMP 36.8; O2SAT 94
== END 2020-11-19 00:49 | disposition short-term general hospital (02) ==
PROVIDERS: Emergency Provider Emergency Medicine; PCP Family Medicine
DX: K56.609 Unspecified intestinal obstruction, unspecified as to partial versus complete obstruction (principal); I12.9 Hypertensive chronic kidney disease with stage 1 through stage 4 chronic kidney disease, or unspecified chronic kidney disease; E11.22 Type 2 diabetes mellitus with diabetic chronic kidney disease; E11.36 Type 2 diabetes mellitus with diabetic cataract; N18.9 Chronic kidney disease, unspecified; K21.9 Gastro-esophageal reflux disease without esophagitis; Z93.3 Colostomy status; Z90.49 Acquired absence of other specified parts of digestive tract; Z87.891 Personal history of nicotine dependence
CPT/HCPCS: 74177; 80048; 80076; 81001; 83690; 85025; 87426; 96361; 96374; 96375; 96376; 99285; Q9967; A4216; J2405

== ENCOUNTER 2020-12-26 22:41 | Emergency (ER) | payer MEDICARE, SELFPAY ==
[2020-12-26 22:41] VITALS: BP 83/53; PULSE 142; RESP 24; TEMP 36.6; O2SAT 95; BMI 24.2
[2020-12-26 22:47] VITALS: BP 83/53; PULSE 127; RESP 24; TEMP 36.6; O2SAT 96
--- NOTE | 2020-12-26 22:51 | EKG12_ITS ---
Test Reason : DYSRHYTHMIA Blood Pressure : / mmHG Vent. Rate : 125 BPM Atrial Rate : 125 BPM P-R Int : 164 ms QRS Dur : 082 ms QT Int : 296 ms P-R-T Axes : 042 -11 071 degrees QTc Int : 427 ms Sinus tachycardia Otherwise normal ECG Confirmed by ROOSEVELT FRANKS, LINDSEY ([id number]), copy editor SHERRI QUILES ([id number]) on 12/28/2020 9:30:26 AM Referred By: CL Confirmed By:BRIAN ALBERT MD
--- NOTE | 2020-12-26 22:52 | CT_ITS ---
We are attempting to reach an attending provider to discuss findings. An addendum with communication details will be sent when the communication is complete. INDICATION: abdominal pain EXAMINATION: CT ABDOMEN AND PELVIS WITH CONTRAST - CT Abdomen And Pelvis W/ Contrast Injection TECHNIQUE: Helically acquired images were obtained of the abdomen and pelvis following IV contrast. A radiation dose optimization technique was used for this scan. IV Contrast dosage and agent: 75 mL Isovue-370 Oral contrast: None. COMPARISON: November 18, 2020 CT abdomen and pelvis FINDINGS: LOWER CHEST: There is left lower lobe atelectasis and/or scarring similar to the prior study. There is visualize coronary artery calcification. LIVER: There is persistent pneumobilia. No focal mass. GALLBLADDER AND BILIARY TREE: Status post operative change status post cholecystectomy. PANCREAS: There is atrophy of the pancreas. SPLEEN: Normal size without focal cystic or solid mass. There is fluid surrounding the spleen peripherally similar to prior study. ADRENAL GLANDS: No nodules. KIDNEYS AND URETERS: The right kidney appears to been removed. Within the right upper quadrant there is a focus of soft tissue density measuring 7.2 x 2.7 cm slightly more stranding than prior study when it measured 6.8 x 2.3 cm. There is a left renal cyst measuring 1.3 cm. There is no hydronephrosis. PERITONEUM: There is no visualized pneumoperitoneum. There is free fluid in the left upper quadrant there are bubbles of free air. The fluid has Hounsfield units in the range of simple fluid. This fluid and gas is new since prior study. No other fluid collection. BOWEL: There is a percutaneous endogastric tube placed that is new since prior study. There are multiple distended loops of small bowel present with mild wall thickening and enhancement. There is a focus of postoperative change in the left upper quadrant appears to be new since prior study. There is surrounding edema. There is no venous anastomosis where there is a focus of fluid. This fluid appears to be seeking out of the opening where there is a bulge of the distended small bowel and the colostomy. See image #[id number]. There is a right lower quadrant opening urostomy. There are multiple distended loops of small bowel with thickening and air-fluid levels that is similar to prior study however there is more wall thickening than seen on prior study. LYMPH NODES: There are multiple small subcentimeter retroperitoneal lymph nodes. VESSELS: Aorta is partially calcified. There is calcification of the takeoff of the celiac is very mesenteric artery as well as the bilateral renal arteries. URINARY BLADDER: The bladder is been removed. REPRODUCTIVE ORGANS: The prostate appears to been removed. ABDOMINAL WALL: There is a right lower urostomy left lower colostomy. There is herniation of small bowel into the large bulge of the left colostomy with adjacent track of extraluminal gas extending around the small bowel. BONES: There is straightening of the physiologic lordosis. There is anterolisthesis L4 on L5 with moderate neural foramina narrowing. The visualized degenerative change of the thoracolumbar spine. This visualized presacral stranding. CT/Abdomen/Pelvis W IV Cont ONLY IMPRESSION: Diffuse enteritis. Pneumoperitoneum. Free fluid. Postoperative changes in the left upper quadrant with nearby free fluid in gas bubbles suggesting possible anastomotic leak. Overall pattern is consistent with small bowel obstruction and/or high-grade ileus. Recommend correlation with recent placement of percutaneous endogastric tube in the stomach. A percutaneous endogastric tube appears normal without evidence of surrounding gas. Stable pneumobilia. Status post cholecystectomy. Slightly larger focal nodular mass in the right upper quadrant, post nephrectomy site suggesting metastatic disease slightly worse. Status post prostatectomy Status post cystectomy. Left lower lobe quadrant colostomy. Stable left lower lobe atelectasis and/or scarring. Coronary artery disease. Electronically Signed: Jessica England MD at 0:40 EDT Tel , Service support ,
[2020-12-26 22:55] VITALS: BP 83/53; PULSE 128; RESP 34; O2SAT 96; O2SAT 97
--- NOTE | 2020-12-26 22:56 | ED.VIS.GEN ---
History of Present Illness Chief Complaint: Abd Pain Informant: Patient Narrative: 80-year-old male with past medical history including bladder cancer, diabetes, chronic kidney disease presents with concern for abdominal pain. States is been present over the past 12 hours. States that his urostomy is not draining. States that the pain is sharp in nature. Denies any nausea or vomiting. Patient has a urostomy as well as a colostomy. Denies any fever, chills, cough, chest pain, shortness of breath. Had been discharged from [facility] this morning after having a small bowel obstruction. Past Medical History - Allergies and Home Meds Allergies/Adverse Reactions: Allergies No Known Allergies Allergy (Verified 12/26/20 22:51) Primary Care Physician: Franco Shin MD [Primary Care Provider] - Prior records reviewed: Yes Past Medical History: - - bladder cancer, CKD, diabetes Surgical History: cataract, cholecystectomy - bile duct injury., - - TURBT x 3, Exploratory laparotomy, hepatojejunostomy with wound vac, liver resection, DCS: A-10C [facility] Lives: [place] Smoking Status: Never smoker Alcohol: None Drugs: None - Family History Maternal Family History: Reports: Diabetes, Dementia Sibling Family History: Reports: COPD - Brother. Review of Systems General: Denies: Chills, Fever, Sweats Eyes: Denies: Visual changes - bilaterally, Diplopia ENT: Denies: Rhinorrhea, Sore throat Cardiovascular: Denies: Chest pain, Palpitations Respiratory: Denies: Dyspnea, Cough, Dyspnea on exertion Gastrointestinal: Reports: Abdominal pain. Denies: Nausea, Vomiting, Diarrhea, Melena, Hematochezia Genitourinary: Denies: Dysuria, Hematuria, Frequency Musculoskeletal: Denies: Back pain, Extremity Pain Skin: Denies: Rash, Wounds Neurological: Reports: Weakness. Denies: Headache, Numbness Physical Exam Vital Signs/Narrative: Vital Signs Temp Pulse Resp BP Pulse Ox 12/26/20 22:47 97.8 F 127 H 24 H 83/53 L 96 12/26/20 22:41 97.8 F 142 H 24 H 83/53 L 95 Inital Vital Signs reviewed: Yes General: Well nourished, Well developed, No Acute Distress Head: Normocephalic, Atraumatic Eyes: Perrl, EOMI ENT: Moist mucous membranes, No rhinorrhea Neck: Supple, Nontender Cardiovascular: Regular rhythm, No murmurs, Tachycardia Respiratory: No distress, CTA bilaterally, Chest nontender Abdomen: Soft, Normal bowel sounds, - - Mild distention. TTP throughout. Urosomy on the right abdomen pink without urine in bag. Colostomy on the left adbomen pink. Back: Nontender, Normal Inspection Extremities: Nontender, No edema Skin: No rash, Pallor Neurological: Alert, Oriented x3, Cranial nerves II-XII grossly intact, Normal Strength, Normal Sensation Psychological: Normal affect, Normal Mood Diagnostic/Tx/Re-eval Chest X-Ray - ED: 1 View, Read by ED Physician, Read by Radiologist, Normal - Rhythm Strip Rhythm Strip: Sinus Tach Rate: 125 Ectopy: None - EKG Initial EKG Interpretation: Sinus Tachycardia - Sinus tachycardia 125 bpm. VT interval 164 ms. QTC of [address] changes. - Medical Decision Making Patient appears ill. Hypotensive and tachycardic. Afebrile. Pale. Tenderness to palpation of the abdomen. Patient has a G-tube in place which is draining fluid likely secondary to a previous small bowel obstruction. This is an lieu of a NG tube. Echopenic. Elevated lactic acidosis above 4. Patient was given 30 mL/kg of normal saline. Patient will be given Zosyn and vancomycin for broad-spectrum antibiotic therapy. On reevaluation at 0020 patient's heart rate is improved to 110 from approximately 140. Blood pressure improved to 98 systolic from 83. Patient's perfusion improving with decrease in pallor. Capillary refill less than 3 seconds. Patient has been given 2 doses of fentanyl to control his pain. Spoke with radiologist who was concerned for high-grade small bowel obstruction with free air and free fluid within the abdomen. Concern for anastomotic leak. His pain is better controlled after second dose of 25 mcg of fentanyl. Reevaluation again at 0050 and patient's blood pressure remains 98 systolic. Heart rate still at 110. Capillary refill less than 3 seconds. On reevaluation at 0150 patient's blood pressures improved to 100 systolic. He is feeling somewhat improved. Heart rate of approximately 107. Patient will be accepted to [facility] by Dr. [place]. Patient transferred in critical but stable condition. Impression: 1. Septic shock 2. Pneumoperitoneum 3. SBO - Critical Care Time Critical care time (excluding procedures): 75-104 minutes, Performing Direct Patient Care at Bedside ED Disposition - Plan for ED Patient: Referrals: Franco Shin MD [Primary Care Provider] -
[2020-12-26] MEDS: fentaNYL 100 MCG/2 ML Ampul 25 MCG IV (23:03)
--- NOTE | 2020-12-26 23:05 | RAD_ITS ---
INDICATION: hypotension EXAMINATION/TECHNIQUE: X-RAY - XR Chest 1 View COMPARISON: 11/02/2020. FINDINGS: Right-sided PICC with tip in the mid SVC. Left basilar atelectasis. Tortuous and calcified thoracic aorta. The heart is not enlarged. No pleural effusion or pneumothorax. No acute osseous abnormalities. RAD/Chest 1 View (Portable) IMPRESSION: No acute radiographic abnormalities. Electronically Signed: Leonel Birch MD at 23:31 EDT Tel , Service support ,
[2020-12-26] MEDS: 0.9% Normal Saline 1,000 ML 999 ML IV (23:06)
[2020-12-26 23:19] LABS: Mucous, Urine 0 SEEN /hpf (<or=2+); Squamous Epithelial Cells - UA 0 SEEN /hpf (0-5)
[2020-12-26 23:20] LABS: Hematocrit 31.2 % (40-54); Hemoglobin 9.8 g/dL (13.0-16.5); International Normalized Ratio 1.2; Mean Corp Hgb Conc 31.4 g/dL (32-36); Mean Corpuscular Hgb 31.5 pg (27.0-32.0); Mean Corpuscular Volume 100.3 fL (80-94); Mean Platelet Vol. 10.6 fl (6.2-12.0); POSITIVE COUNT YES; POSITIVE DIFFERENTIAL YES; POSITIVE MORPHOLOGY YES; Platelet Count 307 K/mm3 (150-450); Prothrombin Time (Protime)PT. 14.4 SECONDS (11.7-14.9); RBC Distribution Width CV 17.9 % (11.6-14.6); RBC Distribution Width SD 65.1 fl (35.1-43.9); Red Blood Count 3.11 M/mm3 (4.6-6.2)
[2020-12-26 23:21] LABS: Partial Thromboplast Time 35.1 Seconds (24.1-36.2)
[2020-12-26 23:22] VITALS: BP 91/58; PULSE 112; RESP 28; O2SAT 97
[2020-12-26 23:27] LABS: ALB/GLOB Ratio 0.6 RATIO (0.9-2.4); AST(SGOT) 24 U/L (15-37); Alanine Aminotransfer ALT/SGPT 30 U/L (16-61); Alkaline Phosphatase 104 U/L (45-117); Anion Gap 11 (5-15); BUN 36 mg/dL (7-18); BUN/Creat Ratio 19.9 RATIO (10-20); Calcium,Total 7.9 mg/dL (8.5-10.1); Chloride 106 mmol/L (98-107); Creatinine, Serum 1.81 mg/dL (0.70-1.30); EST Glomerular Filtration Rate 39 mL/min (>60); Est Glom Filt Rate - Afr Amer 47 mL/min (>60); Estimated Creatinine Clearance 36.92 ml/min; Globulin 3.4 g/dL (2.2-4.2); Glucose 165 mg/dL (74-106); Potassium 4.1 mmol/L (3.5-5.1); Protein, Total 5.4 g/dL (6.4-8.2); Sodium Level 139 mmol/L (136-145)
[2020-12-26 23:27] LABS: Color, Urine Yellow (Yellow); Glucose, Dipstick Normal (Normal); Ketone-Dipstick 5 mg/dl (Negative); Leukocyte Esterase-Dipstick 25 /ul (Negative); Nitrite-Dipstick Negative (Negative); Occult Blood-Urine 25 /ul (Negative); Protein-Dipstick 100 mg/dl (Negative); Urine Bilirubin Dipstick 1 mg/dL (Negative); Urine Clarity Clear (Clear); Urine Urobilinogen 1 mg/dl (Normal)
[2020-12-26 23:35] LABS: Differential Indicated MANUAL DIFF
[2020-12-26 23:37] LABS: Bacteria 4+ /hpf (None Seen)
[2020-12-26 23:38] LABS: Amorphous Sediment 1+; White Blood Cells 5-10 SEEN /hpf (0-5)
[2020-12-26 23:40] LABS: Yeast-Urine RARE /hpf (None Seen)
[2020-12-26 23:41] LABS: Coarse Granular Cast 0-5 SEEN /lpf (0-5 /lpf); Red Blood Cells-Urine 5-10 SEEN /hpf (0-5)
[2020-12-26 23:45] LABS: Lactic Acid 4.4 mmol/L (0.4-1.9)
[2020-12-27 00:16] LABS: Absolute Lymphocyte Count 0.65 X10^3/uL (0.83-4.51); Absolute Neutrophil Count 1.5 X10^3/uL (2.0-7.7); Acanthocytes 1+; Anisocytosis 2+; Corrected WBC 2.3 K/mm3 (4.4-11.0); Lymphocyte 24 % (19-41); Metamyelocyte 9 % (0-1); Monocyte 11 % (0-10); Myelocyte 1 % (0-0); Neutrophil-Band 34 % (0-5); Neutrophil-Segmented 21 % (47-70); Nucleated Red Bld Cells,Manual 17 % (0-5); Platelet Estimate ADEQUATE (ADEQ); Stomatocyte RARE; Target Cells RARE; Total Cells Counted 100 (MANUAL DIFF)
[2020-12-27] MEDS: fentaNYL 100 MCG/2 ML Ampul 25 MCG IV (00:20)
[2020-12-27] MEDS: 0.9% Normal Saline 1,000 ML 999 ML IV (00:29)
[2020-12-27 00:44] VITALS: BP 91/58; PULSE 110; RESP 28; O2SAT 98
--- NOTE | 2020-12-27 00:49 | ED.RN ---
ATTEMPTED TO CALL [facility] FOR TRANSFER. TRANSFER LINE WAS BUSY AND LEFT A MSG WITH OUR RETURN PHONE NUMBER
[2020-12-27 01:00] VITALS: BP 95/50; PULSE 102; RESP 24; O2SAT 98
[2020-12-27 02:11] VITALS: BP 104/68; PULSE 112; RESP 30; O2SAT 97
[2020-12-27] MEDS: fentaNYL 100 MCG/2 ML Ampul 50 MCG IV (02:12)
[2020-12-27 02:51] VITALS: TEMP 36.9
[2020-12-27 03:00] VITALS: BP 94/64; PULSE 116; RESP 22; O2SAT 96
[2020-12-27 03:02] LABS: Reflex Lactate? Y
[2020-12-27] MEDS: Ondansetron 4 MG/2 ML Vial IV (03:07)
[2020-12-27 03:13] VITALS: BP 91/61; PULSE 115; RESP 24; TEMP 36.9; O2SAT 96
[2020-12-27 12:26] LABS: Pathologist Review Reviewed
== END 2020-12-27 03:18 | disposition short-term general hospital (02) ==
LOC: ED 23:20
PROVIDERS: Emergency Provider Emergency Medicine; PCP Family Medicine
DX: K56.609 Unspecified intestinal obstruction, unspecified as to partial versus complete obstruction (principal); K66.8 Other specified disorders of peritoneum; R65.21 Severe sepsis with septic shock; E11.9 Type 2 diabetes mellitus without complications; Z79.84 Long term (current) use of oral hypoglycemic drugs
CPT/HCPCS: 36592; 71045; 74177; 80053; 81001; 83605; 84484; 85025; 85610; 85730; 87040; 87077; 87086; 87088; 87186; 87426; 93005; 96365; 96366; 96367; 96375; 96376; 99285; J7030; J7050; Q9967; A4216; J2405